=== PATIENT | male | born 1950 | race Caucasian/White ===

== ENCOUNTER 2025-02-26 12:52 | Outpatient (AMB) | payer MEDICARE, SELFPAY ==
--- NOTE | 2025-02-26 13:11 | A.SPINEOV_ITS ---
Vital Signs 02/26/25 13:12 Height 5 ft 9 in Weight 220 lb BMI 32.5 Intake Visit Reasons: Extruded L5 disc Intake Note: Mr. Hoover is here today c/o Low back pain. Access Service Representative Required: No Allergies Penicillins Allergy (Severe, Verified 02/26/25 13:13) Hives Physical Exam Vital Signs: BMI result Body Mass Index 32.5 Assessment & Plan Assessment & Plan (1) Lumbar radiculopathy: Code(s): M54.16 - Radiculopathy, lumbar region Category: Medical Plan: Dear colleague Thank you for referring Favian Sandoval to the office today with a chief complaint of intubated left leg numbness and tingling. HPI: This 74-year-old male developed tingling and complete loss of sensation of his left leg since 6 months. Specifically, the tingling and numbness goes from the front of his thigh to the medial side of his lower leg and medial side of ankle and foot. He denies weakness. The symptoms come on several times a week and last for approximately half an hour. PMH: Myasthenia gravis, hypertension, hypothyroidism, arthritis Medications: The Elavil, levothyroxine, enalapril, pantoprazole, Protonix, finasteride. . Those stick mine azelastine Allergies: Penicillin Social history: Lives in [place]. Nonsmoker Physical Exam: Height 5'9 weight 220 lb. Straight leg raise negative. Intact strength. Mild sensory deficits of his bilateral feet due to pre-existing neuropathy Radiological Studies: MRI done at [facility] in [place] on 01/05/2025 shows status post L2-3 fusion. There is a grade 1 spondylolisthesis L4-5 and severe spinal stenosis and bilateral foraminal stenosis. As possible disc herniation. There is lateral recess stenosis L5-S1 with compression of the L5 nerve root. Dynamic x-rays show no instability. No scoliosis under the previous surgical construct. Impression/Plan: This 74-year-old male is suffering from an intermittent L4 radiculopathy with the MRI showing severe for decompression of the L4 and L5 nerve roots. The treatment would be to decompress those nerve roots through a laminotomy. He denies pain and therefore I advised him to 1st observe where the symptoms are going. A progression of surgery would obviously lead to surgery. Surgery in a stable situation is dependent on the patient. Improvement of symptoms obviously the leads the need for surgery. Thank you for allowing me to participate in your patients care. total time spent was 50 minutes in counseling ,coordination of plan, personal review of imaging, surgical decision making and subsequent plan Lazaro Ku MD, PhD Spine Fellowship Trained Neurosurgeon Director, [facility] Orders: Orders XR lumbar spine 4V min Today M54.16 - Radiculopathy, lumbar region Coding Level of Care Code New Pt Level 4 (43156) Diagnoses Lumbar radiculopathy M54.16
[2025-02-26 13:12] VITALS: BMI 32.5
--- OUTSIDE RECORDS SUMMARY | 2025-02-26 13:26 | XMS_ITS | Clinical Summary ---
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 Refills: 0 Active Active latanoprost (XALATAN) 0.005% ophthalmic solution Xalatan 0.005 % Ophthalmic Solution INSTILL 1 DROP IN BOTH EYES AT BEDTIME. Refills: 0 Active Active fluticasone propionate (FLONASE) 50 mcg/actuation nasal spray Administer 1 spray into each nostril daily. 16 g 1 9 Active azelastine (ASTELIN) 137 mcg (0.1 %) nasal spray 0 Active fluorouraciL (EFUDEX) 5% creamIndications: Actinic keratosis Apply to the skin from the knuckles to the elbows twice a day for two weeks. 40 g 3 0 Active azaTHIOprine (IMURAN) 50 mg tabletIndications :Myasthenia gravis without (acute) exacerbation (HCC) Take 4 tablets by mouth daily. 360 tablet 3 1 Active pyridostigmine (MESTINON) 60 mg tablet Take 1 tab in the am and 1 tab at bedtime. 180 tablet 1 2 Active levothyroxine (SYNTHROID, LEVOTHROID) 88 mcg tabletIndications :Hypothyroidism, unspecified type Take 1 tablet (88 mcg total) by mouth daily. TAKE 1 TABLET DAILY IN THE MORNING 30 tablet 1 2 Active tamsulosin (FLOMAX) 0.4 mg capsuleIndication s:Benign prostatic hyperplasia with lower urinary tract symptoms, symptom details unspecified Take 2 capsules (0.8 mg total) by mouth once a day. 180 capsule [address] (PROTONIX) 40 mg tablet Take 1 tablet (40 mg total) by mouth 2 times a day. 180 tablet 3 2 Active enalapril (VASOTEC) 10 mg tabletIndications :Essential (primary) hypertension Take 1 tablet (10 mg total) by mouth once a day. 90 tablet 3 2 Active oxybutynin (DITROPAN) 5 mg tablet Take 1 tablet (5 mg total) by mouth once a day. 90 tablet 3 2 Active ALPRAZolam (Xanax) 0.5 mg tabletIndications :Panic disorder without agoraphobia Take 1 tablet (0.5 mg total) by mouth daily as needed for anxiety. 30 tablet 1 2 Active hyoscyamine (LEVSIN) 0.125 mg SL tablet TAKE 1 TABLET (0.125 MG TOTAL) BY MOUTH ONCE A DAY. 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 daily as needed, continue on admission Assessment & Plan (08/21/2018 7:49 AM EDT): 08/21/2018 -Hypertension-enalapril 10 mg daily, continue on admission -Hypothyroidism-Synthroid 88 MCG's daily, continue on admission -Episodic anxiety-0.5 mg p.o. daily as needed, continue on admission Assessment & Plan (08/20/2018 8:39 AM EDT): 08/20/2018 -Hypertension-enalapril 10 mg daily, continue on admission -Hypothyroidism-Synthroid 88 MCG's daily, continue on admission -Episodic anxiety-0.5 mg p.o. daily as needed, continue on admission Assessment & Plan (08/19/2018 10:58 PM EDT): 08/19/2018 -Hypertension-enalapril 10 mg daily, continue on admission -Hypothyroidism-Synthroid 88 MCG's daily, continue on admission -Episodic anxiety-0.5 mg p.o. daily as needed, continue on admission Assessment & Plan (08/14/2018 9:29 AM EDT): #Glaucoma-chronic, stable -Continue home latanoprost 0.005% BID qhs #Hypothyroidism- chronic, stable -Continue home levothyroxine 88 mcg daily #Anxiety-chronic, stable -Alprazolam 0.5 mg daily PRN anxiety Assessment & Plan (08/13/2018 9:52 AM EDT): #Glaucoma-chronic, stable -Continue home latanoprost 0.005% BID qhs #Hypothyroidism- chronic, stable -Continue home levothyroxine 88 mcg daily #Anxiety-chronic, stable -Alprazolam 0.5 mg daily PRN anxiety Melena 08/12/2018 Overview (08/13/2018): Added automatically from request for surgery [id number] Decreased hearing of both ears 07/03/2018 Assessment & Plan (07/31/2018 2:03 PM EDT): With decreased hearing in both ears, likely age-related hearing loss. Although previously patient stated that he did not want a formal audiology referral, he has reconsidered and would like to get this done to see if hearing aids are indicated. We will provide referral today. Assessment & Plan (07/14/2018 1:22 PM EDT): Patient with decreased hearing in both ears, likely age-related hearing loss. Currently not bothering patient very much, will continue to monitor and will refer to audiology for possible hearing aids in the future if symptoms become intrusive. 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 Patient returned for full-thickness excision, but lesion covered large area of forehead and patient had several other small scattered lesions on forehead that were also concerning for actinic keratoses vs. Squamous cell carcinomas. Given this, discussed with patient and we will defer further biopsy/treatment to Dermatology, whom I will place a referral to today. Patient may be a good candidiate for 5-fluorouracil, or may require excision of lesions. Appreciate Dermatology's input in this matter. Assessment & Plan (01/25/2018 4:30 PM EDT): Patient with rough, scaly, slightly hyperpigmented patch over left sabianism. Appears to be most consistent with actinic keratosis. Given location patient's age, will opt for a shave biopsy to rule out squamous cell carcinoma. Could also consider cryotherapy. 5-fluorouracil not indicated at this time as patient has only scattered lesions. Benign prostatic hyperplasia with urinary freque ncy 06/19/2017 Assessment & Plan (04/16/2019 10:09 PM EDT): Patient with BPH as well as with overactive bladder. Tamsulosin has helped with use of urination but he continues to have sudden urgency. Hyoscyamine has been adequate in treating his symptoms. He had previously been on oxybutynin without any ill effects. He is aware of the risks of taking this medication given that it is an anticholinergic in the context of his myasthenia gravis. However, he would like to give this another try. Given the patient's previous lack of side effects on his medication, we will trial him on oxybutynin 5 mg daily. If he experiences any symptoms of myasthenia whatsoever, he states that he will stop the medication immediately and call me and Dr. Salazar, his neurologist, to let us know. I do wonder whether or not it would be worth exploring trying to get Myrbetriq approved for him. He states in the past it was too expensive for him to be able to afford. However, given his myasthenia, I believe that Myrbetriq will be the best option as it is the only non-anticholinergic treatment for his overactive bladder but I am aware of at this time. We may consider urology consultation as well. Assessment & Plan (08/22/2018 9:26 AM EDT): 08/22/2018 Long-standing BPH on Flomax 0.8 mg daily. Continue home meds -Continue Flomax 0.8 mg daily -Patient also reports using hyoscyamine daily to help with bladder spasms reordered today Assessment & Plan (08/21/2018 7:49 AM EDT): 08/21/2018 Long-standing BPH on Flomax 0.8 mg daily. Continue home meds -Continue Flomax 0.8 mg daily Assessment & Plan (08/20/2018 8:39 AM EDT): 08/20/2018 Long-standing BPH on Flomax 0.8 mg daily. Continue home meds -Continue Flomax 0.8 mg daily Assessment & Plan (08/19/2018 10:48 PM EDT): 08/19/2018 Long-standing BPH on Flomax 0.8 mg daily. Continue home meds -Continue Flomax 0.8 mg daily Assessment & Plan (07/31/2018 2:02 PM EDT): Patient with BPH resulting in difficulty urinating, also with bladder spasms that cause increased urgency. Taking both hyoscyamine 0.125 mg 3-4 times daily as needed for bladder spasm and is using tamsulosin 0.8 mg daily for difficulty urinating. Has an appointment scheduled with urology for next week. Appreciate their recommendations. Assessment & Plan (07/14/2018 1:21 PM EDT): Patient with BPH resulting in difficulty urinating. Also with bladder spasms. Currently taking both tamsulosin 0.8 mg daily as well as hyoscyamine as needed. Symptoms have been progressing. As result, will refer to urology for further assessment. Iron deficiency anemia due to chronic blood loss 05/30/2017 Assessment & Plan (08/16/2017 6:59 PM EDT): Patient with history of iron deficiency anemia due to chronic blood loss from gastric ulcer. Has needed treatment with pantoprazole and is now on ranitidine. Has been taking iron supplementation to replenish stores. Will check CBC after visit today. If patient's CBC is returning to normal, he may stop taking his iron supplementation. Multiple gastric erosions 05/28/2017 Myasthenia gravis 03/07/2016 Assessment & Plan (08/22/2018 9:25 AM EDT): 08/22/2018 Favian has long-standing myasthenia gravis, currently managed on Imuran 200 mg daily and pyridostigmine 60 mg daily. He does state that some amount of lower extremity weakness is normal for him at baseline due to the EMG, but he feels as though his weakness is worse recently on account of the blood loss. Continue home meds. -Azathioprine 200 mg daily -Pyridostigmine 60 mg daily Assessment & Plan (08/21/2018 7:49 AM EDT): 08/21/2018 Favina has long-standing myasthenia gravis, currently managed on Imuran 200 mg daily and pyridostigmine 60 mg daily. He does state that some amount of lower extremity weakness is normal for him at baseline due to the EMG, but he feels as though his weakness is worse recently on account of the blood loss. Continue home meds. -Azathioprine 200 mg daily -Pyridostigmine 60 mg daily Assessment & Plan (08/20/2018 8:39 AM EDT): 08/20/2018 Favian has long-standing myasthenia gravis, currently managed on Imuran 200 mg daily and pyridostigmine 60 mg daily. He does state that some amount of lower extremity weakness is normal for him at baseline due to the EMG, but he feels as though his weakness is worse recently on account of the blood loss. Continue home meds. -Azathioprine 200 mg daily -Pyridostigmine 60 mg daily Assessment & Plan (08/19/2018 10:57 PM EDT): 08/19/2018 Favian has long-standing myasthenia gravis, currently managed on Imuran 200 mg daily and pyridostigmine 60 mg daily. He does state that some amount of lower extremity weakness is normal for him at baseline due to the EMG, but he feels as though his weakness is worse recently on account of the blood loss. Continue home meds. -Azathioprine 200 mg daily -Pyridostigmine 60 mg daily Assessment & Plan (08/14/2018 9:08 AM EDT): Chronic, stable on home meds. -Continue home azathioprine 200 mg daily -Continue home hyoscyamine 0.125 mg daily -Continue home pyridostigmine 60 mg BID Assessment & Plan (08/13/2018 9:52 AM EDT): Chronic, stable on home meds. 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 TSH normal. We will continue to monitor. Assessment & Plan (08/16/2017 6:59 PM EDT): Patient with hypothyroidism being treated with levothyroxine. At last visit in June, patient's TSH was noted to be very low at 0.4, representing iatrogenic hyperthyroidism. We decreased his levothyroxine dose to 88 mcg daily. We are rechecking his TSH today to determine how he has responded to this dose change. We will adjust the dose as needed. Osteoarthritis 05/21/2009 Hypertension 05/21/2009 Assessment & Plan (08/14/2018 9:08 AM EDT): Chronic, stabilizing. Baseline BPs 130s/80s outpatient. Temporarily hemodynamically unstable in ED followed by persistent hypotension which resolved status post fluid resuscitation and 2 PRBCs. Blood pressures have been low normal while continuing home BP meds with holding parameters. -Continue home enalapril 10 mg daily -Continue home tamsulosin 0.8 mg daily Assessment & Plan (08/13/2018 9:52 AM EDT): Chronic, stabilizing. Baseline BPs 130s/80s outpatient. Temporarily hemodynamically unstable in ED followed by persistent hypotension which resolved status post fluid resuscitation and 2 PRBCs. Blood pressures have been low normal while continuing home BP meds with holding parameters. -Continue home enalapril 10 mg daily -Continue home tamsulosin 0.8 mg daily Dysmetabolic syndrome X 05/21/2009 Hypercholesterolemia 05/21/2009 Ulnar neuropathy at wrist, right Carpal tunnel syndrome on both sides Resolved Problems Problem Noted Date Diagnosed Date Resolved Date Acute upper gastrointestinal hemorrhage 08/12/2018 08/23/2018 Assessment & Plan (08/22/2018 9:25 AM EDT): 08/22/2018 Favian has a history of gastric bypass surgery and was admitted to [facility] 08/12-08/15 in the setting of melena and rectal bleeding as well as anemia with a hemoglobin ~10, but he was experiencing significant symptoms of dizziness, lightheadedness, as well as tachycardia. He was discharged on 08/15 and as outpatient he completed a video capsule endoscopy. The video capsule did show clotting and evidence of bleeding in the distal jejunum. Patient presented Saturday to clinic for continued weakness, shortness of breath, dizziness and lightheadedness, as well as continued tarry stools multiple times per day. At the [facility], he was hypotensive in the 90s-100s over 60s-70s. Capsule endoscopy result finalized today by Dr. Sharma, recommending a double balloon enteroscopy for detailed evaluation. Favian received 1 unit PRBCs in the ER on admission and was hemodynamically stable otherwise. GI took him for a double balloon enteroscope yesterday that did show clot in the jejunum and bowel wall edema but no active source of bleeding or ulceration was noted. They made recommendations for him to have 2 more days of IV Protonix then to be discharged on high-dose oral Protonix. Patient agreed to stay for 1 more day GI is agreeable to this as well. He was also only agreeable to stay for advance his diet so that he may eat. GI also mention that if he should rebleed he should present himself to [facility] instead of [facility] in order to have his scopes done more expeditiously. Furthermore, his hemoglobin has stabilized around 8.5. PLAN: - Gastroenterology consult, appreciate recommendations. - Regular diet - Discontinue IV fluids - A.m. CBC -IV Protonix 40 mg twice daily Assessment & Plan (08/21/2018 7:48 AM EDT): 08/21/2018 Favian has a history of gastric bypass surgery and was admitted to [facility] 08/12-08/15 in the setting of melena and rectal bleeding as well as anemia with a hemoglobin which was only around 10, but he was experiencing significant symptoms of dizziness, lightheadedness, as well as tachycardia. He was discharged on 08/15 and as outpatient he completed a video capsule endoscopy. The video capsule did show clotting and evidence of bleeding in the distal jejunum. Patient presented Saturday to clinic for continued weakness, shortness of breath, dizziness and lightheadedness, as well as continued tarry colored stools multiple times per day. At the [facility] he was hypotensive in the 90s-100s over 60s-70s. Capsule endoscopy result finalized today by Dr. Sharma, recommending a double balloon enteroscopy for detailed evaluation. Favian received 1 unit PRBCs in the ER on admission and was hemodynamically stable otherwise. GI was able to get him on the schedule today for 2:30 PM for double balloon enteroscopy. Patient has remained n.p.o. since midnight. Hemodynamically stable with no new episodes of dark loose stools since last night. CBC still pending at time of notation. PLAN: -Gastroenterology consult, appreciate recommendations. - N.p.o. except sips with meds and ice chips - IVF at 125/h (d/c normal saline with 20 mEq potassium) - now D5NS - A.m. CBC Assessment & Plan (08/20/2018 8:39 AM EDT): 08/20/2018 Favian has a history of gastric bypass surgery and was admitted to [facility] in the setting of melena and rectal bleeding as well as anemia with a hemoglobin which was only around 10, but he was experiencing significant symptoms of dizziness, lightheadedness, as well as tachycardia. He was discharged on 08/15 and as outpatient he completed a video capsule endoscopy, the results of which were finalized today. The video capsule did show clotting and evidence of bleeding in the distal jejunum. Patient presented Saturday to clinic for continued weakness, shortness of breath, dizziness and lightheadedness, as well as continued tarry colored stools multiple times per day. At the [facility] he was hypotensive in the 90s-100s over 60s- 70s. He denies milton blood in his stool. Capsule endoscopy result finalized today by Dr. Sharma, recommending a double balloon enteroscopy for detailed evaluation. Favian received 1 unit PRBCs in the ER on admission and was hemodynamically stable otherwise. Awaiting to hear if able to get him on schedule today for this double balloon capsule enteroscopy. However, at this time unlikely that he will have it today will await to hear from GI before changing n.p.o. Status. Since hemoglobin/hematocrit responded appropriately and is stable. Patient continues to have dark tarry stool but denies any milton bleeding. PLAN: -Gastroenterology consul, appreciate recommendations. - N.p.o. except sips with meds and ice chips - IVF at 125/h (normal saline with 20 mEq potassium) -A.m. CBC Assessment & Plan (08/19/2018 10:48 PM EDT): 08/19/2018 Favian has a history of gastric bypass surgery and was admitted to [facility] in the setting of melena and rectal bleeding as well as anemia with a hemoglobin which was only around 10, but he was experiencing significant symptoms of dizziness, lightheadedness, as well as tachycardia. He was discharged on the and as outpatient he completed a video capsule endoscopy, the results of which were finalized today. The video capsule did show clotting and evidence of bleeding in the distal jejunum. Favian presented to clinic Saturday for continued weakness, shortness of breath, dizziness and lightheadedness, as well as continued tarry colored stools multiple times per day. At the [facility] he was hypotensive in the 90s-100s over 60s-70s. He denies milton blood in his stool. Capsule endoscopy result finalized today by Dr. Sharma, recommending a double balloon enteroscopy for detailed evaluation. Favian received 1 unit PRBCs in the ER today, hemodynamically stable otherwise. -Gastroenterology consult for double balloon enteroscopy evaluation -N.p.o. except sips with meds and ice chips -1 unit PRBC as above, follow-up posttransfusion H&H - CBC and BMP in the morning -IVF at 125/h (normal saline with 20 mEq potassium) Assessment & Plan (08/14/2018 9:30 AM EDT): Patient with history, physical exam, and laboratory evidence suggestive of upper GI bleed. Past medical history of gastric bypass and nonbleeding erosive gastritis on EGD in 2017 treated and improved with Protonix. Admitted with a significant decreased hemoglobin of 10.2 from 13.4 on 07/01. Initially presented with mild hemodynamic instability including hypotension and tachycardia but somewhat resolved after initial fluid bolus, fully resolved after transfusion of 2 PRBCs in the ED. Of note, documentation of administration difficult to find although mentioned in notes and patient also states he has received transfusion. Patient has remained hemodynamically stable and H/H has remained stable as well. EGD done 08/13 did not find any sources of bleeding, so patient will go for colonoscopy today. Patency capsule administered 08/13/18, preparing for video capsule endoscopy if colonoscopy negative -s/P 2 PRBC 08/12 -IV pantoprazole 40 mg twice daily -Currently N.p.o. except for meds until colonoscopy -GI consulted, plans for colonoscopy this morning and possible VCE this afternoon -KUB at 12:00 to confirm positioning of patency capsule -Follow CBC daily Assessment & Plan (08/13/2018 9:51 AM EDT): Patient with history, physical exam, and laboratory evidence suggestive of upper GI bleed. Past medical history of gastric bypass and nonbleeding erosive gastritis on EGD in 2017 treated and improved with Protonix. Currently with a significant decreased hemoglobin of 10.2 from 13.4 on 07/01. Initially presented with mild hemodynamic instability including hypotension and tachycardia but somewhat resolved after initial fluid bolus, fully resolved after transfusion of 2 PRBCs in the ED. Of note, documentation of administration difficult to find although mentioned in notes and patient also states he has received transfusion. GI has been consulted and plans on EGD today; if EGD unrevealing, patient will likely need capsule study. -s/P 2 PRBC -Normal saline 125 mL/h continuous while NPO, d/c after endoscopy -IV pantoprazole 40 mg twice daily -Currently N.p.o. except for meds until endoscopy -GI consulted, plans for EGD this afternoon -F/U 4pm H&H Strain of right trapezius muscle 07/09/2018 08/12/2018 Assessment & Plan (07/09/2018 11:41 AM EDT): Patient with right trapezius muscle strain, will treat with formal physical therapy which patient was provided a referral for today. Patient will also continue using topical therapies as well as heat to help manage symptoms. He will also continue use Tylenol. Discussed muscle relaxer but concerned this may interfere with his myasthenia and so will defer using this. We will follow-up at next scheduled appointment in about 3-4 weeks and determine how things are going at that time. He expressed understanding and agreement with this plan. Trochanteric bursitis of right hip 11/20/2017 08/12/2018 Assessment & Plan (01/25/2018 4:28 PM EDT): Resolved with physical therapy and with corticosteroid injection as well as regular icing. We will continue to follow in case this issue reoccurs. Assessment & Plan (12/23/2017 7:49 PM EST): Patient with tenderness over the right greater tochanter, experienced some mild relief with physical therapy, ice, and acetaminophen but still experiencing pain and unable to sleep on that side. Trochanteric bursa injection performed today; please see procedure note above for full details. Patient tolerated procedure well. Will follow-up in 1 month to assess how things are going with continued physical therapy, ice, and with the injection that was performed today. Assessment & Plan (11/23/2017 1:09 PM EST): Patient with tenderness over greater trochanter of right femur, suggestive of trochanteric bursitis. Will treat with physical therapy as described above; if pain persists, can schedule a corticosteroid of the trochanteric bursa. Patient expressed understanding and agreement with this plan. Pain of right sacroiliac joint 11/20/2017 08/12/2018 Assessment & Plan (11/23/2017 1:07 PM EST): Patient with pain in right sacroilliac joint. Unable to take NSAIDs due to history of gastric ulcer and upper GI bleed. Will refer to physical therapy for strengthening and range of motion exercises. Hand injury, right, initial encounter 10/21/2017 08/12/2018 Overview (10/22/2017): Occurred 10/02/17 following a mechanical fall Assessment & Plan (10/22/2017 12:10 AM EST): Patient with right hand pain over fifth metacarpal following a fall which he broke using his right hand. Full range of motion and no more bruising with only minimal soft tissue swelling, although significant swelling and ecchymosis present at time of injury per patient. X-ray of right hand done in clinic today and did not reveal any gross abnormalities or evidence of fracture, official radiology read pending. No further intervention necessary, patient has been managing pain with ice and acetaminophen. However, patient has had weakness with flexion of the right first through third digits in his right hand for the past 3-4 days. Given the lack of findings on imaging and exam, this is unlikely due to his right hand injury. Patient with complex neuromuscular history including myasthenia gravis and Guillain syndrome; symptoms may represent flare of one of these conditions. He has a follow-up with his neurologist, Dr. Salazar, tomorrow morning. I have emailed her about this issue and he will address it with her tomorrow. I appreciate her input and help in the care of this patient. Shortness of breath 05/27/2017 08/12/20 18 Cramps of lower extremity 03/07/2016 Leg cramps, sleep related 07/12/2015 Joint pain, knee 05/21/2009 08/12/2018 Diabetes mellitus 05/21/2009 08/12/2018 Allergic rhinitis 05/21/2009 08/12/2018 Assessment & Plan (08/16/2017 6:57 PM EDT): Patient getting over viral URI and still experiencing postnasal drip and rhinitis. Although symptoms are much improved, his postnasal drip is causing discomfort causing him to cough and choke. We will treat this with Flonase 50 mcg 1 spray each nostril every night. If his symptoms worsen or fail to improve, he will follow-up as needed. 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 Has recently gained weight and would like more help on how to change his diet. Will refer to nutrition for dietary counseling. Lumbago 05/21/2009 08/12/2018 Immunizations Immunization Administration Dates Next Due Diphtheria and Tetanus Toxoi ds, Adsorbed for Pediatric Use 06/17/1996,12/26/1995 INFLUENZA, SPLIT VIRUS, TRIVALENT, PF 08/26/2003 ,02/10/1993,09/05/1992 Influenza, High Dose Seasona l, Preservative Free 08/16/2017 Influenza, Injectable, Quadr ivalent, Preservative Free 08/15/2020,08/19/2019,08/28/2018 Pneumococcal Polysaccharide Vaccine, 23 Valent 10/05/1997 Family History Medical History Relation Name Comments Other Father Family history of Heart fibrillation Other Mother Family History of glaucoma Relation Name Status Comments Father Mother Social History Tobacco Use Types Packs/Day Years Used Date Smoking Tobacco: Former Cigarettes 0 07/14/1966 - 08/13/1968 Pipe Smokeless Tobacco: Never Tobacco Cessation:Counseling Given: No Comments:: Alcohol Use Standard Drinks/Week Comments Yes 0 (1 standard drink = 0.6 oz pur e alcohol) 1 beer week Sex and Gender Information Value Date Recorded Sex Assigned at Male 05/15/2021 8:50 AM EDT Legal Sex Male 2:23 AM EDT Gender Identity Male 02/18/2019 3:39 PM EDT Sexual Orientation Straight 02/18/2019 3: 39 PM EDT Last Filed Vital Signs Vital Sign Reading Time Taken Comments Blood Pressure 110/70 05/18/2021 9:53 AM EDT Pulse 78 05/18/2021 9:53 AM EDT Temperature 35.3 ??C (95.6 ??F) 03/07/2021 9:41 AM ED T Respiratory Rate 18 05/18/2021 9:53 AM EDT Oxygen Saturation 95% 11/27/2018 4:30 PM EST Inhaled Oxygen Concentration - - Weight 106.6 kg (235 lb) 03/07/2021 9:41 AM EDT Height 177.8 cm (5' 10 ) 03/07/2021 9:41 AM EDT Body Mass Index 33.72 03/07/2021 9:41 AM EDT Plan of Treatment Health Maintenance Due Date Last Done Comments Hepatitis C Screening 1950 Medicare AWV 1951 Zoster Vaccines (1 of 2) 1967 Pneumococcal Vaccine: 50+ Years (2 of 2 - PCV) 10/05/1998 10/05/1997 DTaP,Tdap,and Td Vaccines (3 - Tdap) 06/17/2006 06/17/1996, 12/26/1995 COVID-19 Vaccine (2 - Pfizer risk series) 07/17/2021 06/26/2021 Basic Metabolic Panel 03/07/2022 03/07/2021 , 08/02/2020, 07/22/2019, Additional history exists RSV Vaccine (60+ years old and patients) (1 - 1-dose 75+ series) 2023 Colonoscopy 11/20/2023 11/20/2018, 11/11, 11/20/2018, Additional history exists Alcohol/Substance Use Screening 11/11/2024 Depression Screening and Follow-Up 11/11/2024 Health Care Proxy Review 11/11/2024 Social Drivers of Health Annual Screening 11/11/2024 Influenza Vaccine (Season Ended) 2025 08/15/2020, 08/19/2019, 08/28/2018, Additional history exists Hepatitis B Vaccines Aged Out No long er eligible based on patient's age to complete this topic Procedures * Due to [place] law, this organization might not be sharing negative HIV tests. Procedure Name Priority Date/Time Associated Diagnosis Comments COMPREHENSIVE METABOLIC PANEL Routine 03/07/2021 12:28 PM EDT Myasthenia gravis COLONOSCOPY 11/20/2018 from Last 3 Months or Most Recently Relevant to Health Maintenance Results * Due to [place] law, this organization might not be sharing negative HIV tests. * (ABNORMAL) Comprehensive Metabolic Panel (03/07/2021 12:28 PM EDT) NA 141 135 - 145 mmol/L 03/07/2021 8:28 PM EDT [email or web address] K 4.1 3.5 - 5.3 mmol/L 03/07/2021 8:28 PM EDT [facility] Cl 109 97 - 110 mmol/L 03/07/2021 8:28 PM EDT [facility] CO2 24 24 - 32 mmol/L 03/07/2021 8:28 PM EDT [facility] Anion Gap 8 5 - 15 03/07/2021 8:28 PM EDT [facility] Glucose 97 70 - 99 mg/dL 03/07/2021 8:28 PM EDT [email or web address] Creatinine 1.01 0.60 - 1.30 mg/dL 03/07/2021 8:28 PM EDT [email or web address] eGFR Non- 74(L) >=90 mL/min/BS A 03/07/2021 8:28 PM EDT [email or web address] eGFR 86(L) >=90 mL/min/BS A 03/07/2021 8:28 PM EDT [email or web address] Comment: Units = mL/min/1.73 m2 Glomerular Filtration Rate (GFR) is estimated based on the CKD-EPI Creatinine Equation (2009). Stage ?Description ? GFR 1 ? Normal ? >=90 mL/min/BSA 2 ? Mildly decreased GFR ? 60-89 mL/min/BSA 3 ? Moderately decreased GFR ? 30-59 mL/min/BSA 4 ? Severely decreased GFR ? 15-29 mL/min/BSA 5 ? Kidney Failure ? <15 mL/min/BSA Calcium 9.3 8.7 - 10.7 mg/dL 03/07/2021 8:28 PM EDT [email or web address] Total Protein 6.6 6.0 - 8.0 g/dL 03/07/2021 8:28 PM EDT [facility] Albumin 4.3 3.5 - 4.8 g/dL 03/07/2021 8:28 PM EDT [facility] Bilirubin, Total 1.1 0.3 - 1.2 mg/dL 03/07/2021 8:28 PM EDT [facility] Alkaline Phosphatase 56 30 - 115 U/L 03/07/2021 8:28 PM EDT [facility] AST 27 10 - 40 U/L 03/07/2021 8:28 PM EDT [facility] ALT 13 10 - 40 U/L 03/07/2021 8:28 PM EDT [email or web address] BUN 18 7 - 23 mg/dL 03/07/2021 8:28 PM EDT [email or web address] Blood Structure of peripheral vein / Unknown Venipuncture / Unknown 03/07/2021 12:28 PM EDT 03/07/2021 12:28 PM EDT Mary Salazar DO LAB BLOOD ORDERABLES Final Result [email or web address] [address] [place] [address], [place] * COLONOSCOPY (11/20/2018) Narrative Procedure Note Jacob Khan MD PhD - 11/20/2018 8:01 AM EST Gastroenterology Patient Name: Ballesteros 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 Procedure: Pre-Anesthesia Assessment: - Prior to the procedure, a History and Physical was performed, and patient medications and allergies were reviewed. The patient is competent. The risks andbenefits of the procedure and the sedation options and riskswere discussed with the patient. All questions were answered and informed consent was obtained. Patientidentification and proposed procedure were verified by the physician,the nurse, the anesthesiologist, the field service technician poultry and the septic tank service technician in the pre-procedure area in the procedureroom in the endoscopy suite. Mental Status Examination:alert and oriented. Airway Examination: normal oropharyngeal airway and neck mobility. Respiratory Examination:clear to auscultation. CV Examination: normal. Prophylactic Antibiotics: The patient does not require prophylactic antibiotics. Prior Anticoagulants: The patient hastaken no previous anticoagulant or antiplatelet agents. ASA Grade Assessment: II - A patient with mild systemic disease. After reviewing the risks and benefits, the patient was deemed in satisfactory condition to undergo the procedure. The anesthesia plan was to use monitored anesthesia care (MAC). Immediately prior toadministration of medications, the patient was re-assessed foradequacy to receive sedatives. The heart rate, respiratory rate, oxygen saturations, blood pressure, adequacy ofpulmonary ventilation, and response to care were monitored throughout the procedure. The physical status of the patient was re-assessed after the procedure. After I obtained informed consent, the scope was passed under direct vision. Throughout the procedure, the patient's blood pressure, pulse, and oxygen saturations were monitored continuously. The [id number] was introduced through the anus and advanced to thececum, identified by appendiceal orifice and ileocecal valve.The colonoscopy was performed without difficulty. Thepatient tolerated the procedure well. The quality of the bowel preparation was good. The bowel preparation used was CoLyte. Findings: The perianal and digital rectal examinations were normal. Multiple diverticula were found in the sigmoid colon. Two sessile polyps were found in the descending colon. The polypswere 2 to 6 mm in size. These polyps were removed with a hot snare and cold forceps. Resection and retrieval were complete. Verification ofpatient identification for the specimen was done by the physician, nurse and septic tank service technician using the patient's name and date. Estimated bloodloss was minimal. Impression: - Diverticulosis in the sigmoid colon. - Two 2 to 6 mm polyps in the descending colon, removed with a hot snare. Resected and retrieved. Recommendation: - Discharge patient to home. - No aspirin, ibuprofen, naproxen, or othernon-steroidal anti-inflammatory drugs for 6 days after polypremoval. - Await pathology results. - Repeat colonoscopy in 5 years for surveillance. Jacob Khan MD 11/20/2018 8:35:44 AM This report has been signed electronically. Number of Addenda: 0 Note Initiated On: 11/20/2018 8:01 AM Jacob Khan MD PROVATION PROCEDURES Final R esult from Last 3 Months or Most Recently Relevant to Health Maintenance Insurance MEDICARE Advance Directives Documents on File Type Date Recorded Patient Clinic Coordinator Expl anation Health Care Proxy 03/03/2011 12:00 AM 10/12 Health Care Proxy 06/08/2009 12:00 AM 05/12 * Full Code (Latest Code Status on File) Date Activated Date Inactivated Comments 08/19/2018 9:16 PM 08/23/2018 12:24 PM * Full Code Date Activated Date Inactivated Comments 08/12/2018 10:16 PM 08/15/2018 1:11 PM Care Teams Canal Equipment Maintenance Supervisor Relationship Specialty Start Date End Date Hugh Beltrán MD PCP - General 08/09/17
--- OUTSIDE RECORDS SUMMARY | 2025-02-26 13:26 | XMS_ITS | Encounter Summary ---
Author Organization [facility] Address [address] [place] [address] Care Team Providers Care Test Deskman Name Role Phone Hugh Beltrán MD Primary Care Provider [phone] Encounter Details Date Type Department Care Team (Late st Contact Info) Description 08/16/2017 myChart Message [facility] Primary Care [address] [place] [address] Hugh Beltrán MD [address] [place] [address] Test Results Question Social History Tobacco Use Types Packs/Day Years Used Date Smoking Tobacco: Former Comments:: Sex and Gender Information Value Date Recorded Sex Assigned at Male 05/15/2021 8:50 AM EDT Legal Sex Male 2:23 AM EDT Gender Identity Male 02/18/2019 3:39 PM EDT Sexual Orientation Straight 02/18/2019 3: 39 PM EDT documented as of this encounter Plan of Treatment Not on file documented as of this encounter Visit Diagnoses Not on filedocumented in this encounter Care Teams Test Deskman Relationship Specialty Start Date End Date Hugh Beltrán MD PCP - General 08/09/17 documented as of this encounter
--- OUTSIDE RECORDS SUMMARY | 2025-02-26 13:26 | XMS_ITS | Clinical Summary ---
Author Organization [facility] Address [address] [place] [address] Care Team Providers Care Automatic Thread Winder Name Role Phone Aamir Mauricio Primary Care Provider [phone] Allergies Active Allergy Reactions Criticality Noted Date Comments Penicillins Hives 03/07/1960 Medications diazePAM (Valium) 2 mg tabletIndicati ons:Weakness Take 1 tablet (2 mg) by mouth 1 (one) time if needed (claustroph obia prior to MRI; please take 30 minutes prior to imaging study) for up to 1 dose. 1 tablet 4 Active amitriptyline (Elavil) 10 mg tabletIndicati ons:Sialorrhea Take 1 tablet (10 mg) by mouth at bedtime. 30 tablet 3 5 Active gabapentin (Neurontin) 300 mg capsuleIndicat ions:Myastheni a gravis (CMS/HCC) TAKE 1 CAPSULE AT BEDTIME FOR 30 DAYS, THEN 1 CAPSULE (300 MG) IN THE MORNING AND AT BEDTIME. 180 capsule 1 5 Active gabapentin (Neurontin) 300 mg capsuleIndicat ions:Myastheni a gravis (CMS/HCC) Take 1 capsule (300 mg) by mouth at bedtime for 30 days, THEN 1 capsule (300 mg) in the morning and at bedtime. 210 capsule 4 02/20/20 25 Discontinued Encounters Date Type Department Care Team Description 02/19/2025 Orders Only [facility] [address] [place] [address] Rebecca Grover MD 02/16/2025 Refill [facility] [address] [place] [address] Rebecca Grover MD Myasthenia gravis ([facility]) 02/15/2025 Refill [facility] Neu[facility] [address] [place] [address] Rebecca Grover MD Myasthenia gravis ([facility]) 02/08/2025 Orders Only [facility] Neurology [address] [place] [address] Rebecca Grover MD Sialorrhea (Primary Dx) 12/24/2024 Orders Only [facility] Neurology [address] [place] [address] Rebecca Grover MD Lumbosacral 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 (Primary Dx) from Last 3 Months Social History Tobacco Use Types Packs/Day Years Used Date Smoking Tobacco: Former Cigarettes Smokeless Tobacco: Never Tobacco Cessation:Counseling Given: Not Answered Sex and Gender Information Value Date Recorded Sex Assigned at Male 01/01/2024 1:54 PM EST Legal Sex Male 1:52 PM EST Gender Identity Male 01/01/2024 5:29 PM EST Sexual Orientation Not on file Last Filed Vital Signs Vital Sign Reading Time Taken Comments Blood Pressure 132/80 09/25/2024 2:33 PM EST Pulse 84 09/25/2024 2:33 PM EST Temperature 36.3 ??C (97.3 ??F) 04/13/2024 2:54 PM ED T Respiratory Rate - - Oxygen Saturation 98% 09/25/2024 2:33 PM EST Inhaled Oxygen Concentration - - Weight 95.7 kg (211 lb) 09/25/2024 2:33 PM EST Height 175.3 cm (5' 9 ) 09/25/2024 2:33 PM EST Body Mass Index 31.16 09/25/2024 2:33 PM EST Plan of Treatment Upcoming Encounters Date Type Department Care Team (Late st Contact Info) Description 03/29/2025 9:00 AM EDT Office Visit [facility] [address] [place] [address] Rebecca Grover MD [address] [place] [address] Health Maintenance Due Date Last Done Comments Lipid Panel 1950 Medicare Annual Wellness (AWV) 1950 Hepatitis C Screening 1968 Zoster Vaccines (1 of 2) 1998 Pneumococcal Vaccine: 50+ Years (2 of 2 - PCV) 09/02/2024 09/02/2023 COVID-19 Vaccine ( season) 2024 09/29/2024, 08/05/2023, 08/13/2022, Additional history exists DTaP/Tdap/Td Vaccines (2 - Td or Tdap) 10/31/2034 10/31/2024, 08/21/2021 Influenza Vaccine Completed 09/29/2024, , 08/13/2022, Additional history exists RSV Vaccine > 60 years Completed 09/29/2024 HIB Vaccines Aged Out No longer eligi ble based on patient's age to complete this topic HPV Vaccines Aged Out No longer eligi ble based on patient's age to complete this topic Hepatitis A Vaccines Aged Out No long er eligible based on patient's age to complete this topic Hepatitis B Vaccines Aged Out No long er eligible based on patient's age to complete this topic IPV Vaccines Aged Out No longer eligi ble based on patient's age to complete this topic Meningococcal B Vaccine Aged Out No l onger eligible based on patient's age to complete this topic Meningococcal Vaccine Aged Out No aman nereida eligible based on patient's age to complete this topic Potassium Level Discontinued Rotavirus Vaccines Aged Out No longer eligible based on patient's age to complete this topic Procedures Procedure Name Priority Date/Time Associated Diagnosis Comments SCANNED MRI 01/05/2025 from Last 3 Months Results * MRI (01/05/2025) Anatomical Region Laterality Modality Other 01/05/2025 Narrative 01/05/2025 Ordered by an unspecified provider. Physician Family Medicine MD ROMAN SCANNED DOCUMEN TS Final Result from Last 3 Months Insurance MEDICARE [facility]/TRADITIONAL Care Teams Automatic Thread Winder Relationship Specialty Start Date End Date Aamir Mauricio [address] [place] [address] PCP - General 01/01/24
--- OUTSIDE RECORDS SUMMARY | 2025-02-26 13:26 | XMS_ITS | Encounter Summary ---
Author Organization [facility] Address [address] [place] [address] Care Team Providers Care Set Key Driver Name Role Phone Hugh Beltrán MD Primary Care Provider Encounter Details Date Type Department Care Team (Late st Contact Info) Description 10/18/2017 myChart Message [facility] Primary Care [address] [place] [address] Hugh Beltrán MD [address] [place] [address] Referral Request Social History Tobacco Use Types Packs/Day Years [...] on filedocumented in this encounter Care Teams Set Key Driver Relationship Specialty Start Date End Date Hguh Beltrán MD PCP - General 08/09/17 documented as of this encounter
--- OUTSIDE RECORDS SUMMARY | 2025-02-26 13:26 | XMS_ITS | Encounter Summary ---
Author Organization [facility] Address [address] [place] [address] Care Team Providers Care Manufacturing Recruiter Name Role Phone Aamir Mauricio Primary Care Provider [phone] Reason for Visit * Reason Onset Date Comments Med Refill 02/15/2025 Encounter Details Date Type Department Care Team (Late Contact Info) Description 02/15/2025 Refill [facility] [address] [place] [address] Rebecca Grover MD [address] [place] [address] Myasthenia gravis ([facility]) Social History Tobacco Use Types Packs/Day Years Used Date Smoking Tobacco: Former Cigarettes Smokeless Tobacco: Never Sex and Gender Information Value Date Recorded Sex Assigned at Male 01/01/2024 1:54 PM EST Legal Sex Male 1:52 PM EST Gender Identity Male 01/01/2024 5:29 PM EST Sexual Orientation Not on file documented as of this encounter Plan of Treatment Upcoming Encounters Date Type Department Care Team (Late Contact Info) Description 03/29/2025 9:00 AM EDT Office Visit [facility] [address] [place] [address] Rebecca Grover MD [address] [place] [address] documented as of this encounter Visit Diagnoses Diagnosis Myasthenia gravis (CMS/HCC) Myasthenia gravis without exacerbation documented in this encounter Care Teams Manufacturing Recruiter Relationship Specialty Start Date End Date JadcmJessica knoxkarol [address] [place] [address] PCP - General 01/01/24 documented as of this encounter
--- OUTSIDE RECORDS SUMMARY | 2025-02-26 13:26 | XMS_ITS | Encounter Summary ---
Author Organization [facility] Address [address] [place] [address] Care Team Providers Care Toll Settlement Clerk Name Role Phone Hugh Beltrán MD Primary Care Provider [phone] Encounter Details Date Type Department Care Team (Late st Contact Info) Description 03/03/2018 myChart Message [facility] Primary Care [address] [place] [address] Hugh Beltrán MD [address] [place] [address] RE: Visit Follow-Up Question Social History Tobacco Use Types Packs/Day Years Used Date Smoking Tobacco: Former Smokeless Tobacco: Never Comments:: Alcohol Use Standard Drinks/Week Comments No 0 (1 standard drink = 0.6 oz pur e alcohol) Sex and Gender Information Value Date Recorded Sex Assigned at Male 05/15/2021 8:50 AM EDT Legal Sex Male 2:23 AM EDT Gender Identity Male 02/18/2019 3:39 PM EDT Sexual Orientation Straight 02/18/2019 3: 39 PM EDT documented as of this encounter Plan of Treatment Not on file documented as of this encounter Visit Diagnoses Not on filedocumented in this encounter Care Teams Toll Settlement Clerk Relationship Specialty Start Date End Date Hugh Beltrán MD PCP - General 08/09/17 documented as of this encounter
--- OUTSIDE RECORDS SUMMARY | 2025-02-26 13:26 | XMS_ITS | Encounter Summary ---
Author Organization [facility] Address [address] [place] [address] Care Team Providers Care Train Gate Attendant Name Role Phone Hugh Beltrán MD Primary Care Provider [phone] Encounter Details Date Type Department Care Team (Late st Contact Info) Description 07/11/2020 myChart Message [facility] [address] [place], [place] [id number] Mary Salazar, DO [address] [place] [address] RE: Non-Urgent Medical Question Social History Tobacco Use Types Packs/Day Years Used Date Smoking Tobacco: Former Cigarettes 0 07/14/1966 - 08/13/1968 Pipe Smokeless Tobacco: Never Comments:: Alcohol Use Standard Drinks/Week Comments Yes [...] on filedocumented in this encounter Care Teams Train Gate Attendant Relationship Specialty Start Date End Date Hugh Beltrán MD PCP - General 08/09/17 documented as of this encounter
--- OUTSIDE RECORDS SUMMARY | 2025-02-26 13:26 | XMS_ITS | Encounter Summary ---
Author Organization [facility] Address [address] [place] [address] Care Team Providers Care Credit Resolution Representative Name Role Phone Hugh Beltrán MD Primary Care Provider [phone] Encounter Details Date Type Department Care Team (Late st Contact Info) Description 10/09/2017 myChart Message [facility] Primary Care [address] [place] [address] Hugh Beltrán MD [address] [place] [address] Non-Urgent Medical Question Social History Tobacco Use [...] on filedocumented in this encounter Care Teams Credit Resolution Representative Relationship Specialty Start Date End Date Hugh Beltrán MD PCP - General 08/09/17 documented as of this encounter
--- OUTSIDE RECORDS SUMMARY | 2025-02-26 13:26 | XMS_ITS | Encounter Summary ---
Author Organization [facility] Address [address] [place] [address] Care Team Providers Care Hospital Librarian Name Role Phone Hugh Beltrán MD Primary Care Provider [phone] Encounter Details Date Type Department Care Team (Late st Contact Info) Description 01/28/2018 myChart Message [facility] Neurology Clinic [address] [place], [place] [phone] Mary Salazar, DO [address] [place] [address] RE: Prescription Question Social History Tobacco Use Types Packs/Day [...] on filedocumented in this encounter Care Teams Hospital Librarian Relationship Specialty Start Date End Date Hugh Beltrán MD PCP - General 08/09/17 documented as of this encounter
--- OUTSIDE RECORDS SUMMARY | 2025-02-26 13:26 | XMS_ITS | Encounter Summary ---
Author Organization [facility] Address [address] [place] [address] Care Team Providers Care Foot Roentgenologist Name Role Phone Hugh Beltrán MD Primary Care Provider Encounter Details Date Type Department Care Team (Late st Contact Info) Description 08/09/2020 myChart Message [facility] Neurology Clinic [address] [place], [place] [phone] Mary Salazar, DO [address] [place] [address] RE: Visit Follow-Up Question Social History Tobacco [...] on filedocumented in this encounter Care Teams Foot Roentgenologist Relationship Specialty Start Date End Date Hugh Beltrán MD PCP - General 08/09/17 documented as of this encounter
--- OUTSIDE RECORDS SUMMARY | 2025-02-26 13:26 | XMS_ITS | CCD ---
Author Name Interface, [id number] Address [address] [place] Address [address] [place] [address] Care Plan Reason for Visit Encounters Medications Administered Medications Problems Social History Vital Signs
--- OUTSIDE RECORDS SUMMARY | 2025-02-26 13:26 | XMS_ITS | Encounter Summary ---
Author Organization [facility] Address [address] [place] [address] Care Team Providers Care Informatica Mdm Developer Name Role Phone Hugh Beltrán MD Primary Care Provider [phone] Encounter Details Date Type Department Care Team (Late st Contact Info) Description 11/19/2017 myChart Message [facility] Primary Care [address] [place] [address] Hugh Beltrán MD [address] [place] [address] RE:Hip pain Social History Tobacco Use Types Packs/Day Years [...] on filedocumented in this encounter Care Teams Informatica Mdm Developer Relationship Specialty Start Date End Date Hugh Beltrán MD PCP - General 08/09/17 documented as of this encounter
--- OUTSIDE RECORDS SUMMARY | 2025-02-26 13:26 | XMS_ITS | Encounter Summary ---
Author Organization [facility] Address [address] [place] [phone] Care Team Providers Care Payroll Clerk Name Role Phone Hugh Beltrán MD Primary Care Provider Encounter Details Date Type Department Care Team (Latest Contact Info) Description 03/05/2018 myChart Message [facility] Dermatology Clinic [address]th [address] [place] [address], [place] [address] Executive Steward: Lois Voss MD [address] [place], [place] [id number] Prescription Question Social History Tobacco Use Types [...] on filedocumented in this encounter Care Teams Payroll Clerk Relationship Specialty Start Date End Date Hugh Beltrán MD PCP - General 08/09/17 documented as of this encounter
--- OUTSIDE RECORDS SUMMARY | 2025-02-26 13:26 | XMS_ITS | Clinical Summary ---
Author Organization [facility] Address [address] [facility] [place] [address] Care Team Providers Care Election Assistant Name Role Phone Aamir Mauricio MD Primary Care Provider [phone] Allergies Active Allergy Reactions Criticality Noted Date Comments Penicillins 2021 Medications tamsulosin (FLOMAX) 0.4 mg 24 hr capsule Take 0.4 mg total (1 capsule) by mouth daily. Active HYOSCYAMINE ORAL Take by mouth. Active ALPRAZOLAM ORAL Take by mouth. Active pantoprazole (PROTONIX) 40 mg tablet Take 40 mg total (1 tablet) by mouth 2 (two) times daily. 07/04/2022 Active enalapril (VASOTEC) 10 mg tablet Take 10 mg total (1 tablet) by mouth daily. 05/19/2022 Active levothyroxine (SYNTHROID, LEVOTHROID) 88 mcg tablet Take 88 mcg total (1 tablet) by mouth daily. 07/04/2022 Active oxybutynin (DITROPAN) 5 mg tablet Take 5 mg total (1 tablet) by mouth daily. 06/05/2022 Active latanoprost (XALATAN) 0.005 % ophthalmic solution SMARTSIG:In Eye(s) 11/26/2022 Active azaTHIOprine (IMURAN) 50 mg tablet Take 100 mg total (2 tablets) by mouth daily. 180 tablet 3 09/27/2023 Active pyridostigmine (MESTINON) 60 mg tablet Take 60 mg total (1 tablet) by mouth 2 (two) times daily. 180 tablet 1 01/01/2024 Active Family History Medical History Relation Name Comments Heart disease Father Relation Name Status Comments Father Social History Tobacco Use Types Packs/Day Years Used Date Smoking Tobacco: Former Smokeless Tobacco: Never Tobacco Cessation:Counseling Given: Not Answered Alcohol Use Standard Drinks/Week Comments Yes 0 (1 standard drink = 0.6 oz pur e alcohol) PHQ-2 Answer Date Recorded PHQ-9 Total Score 1 09/18/2023 Sex and Gender Information Value Date Recorded Sex Assigned at Not on file Legal Sex Male 1:29 PM EDT Gender Identity Not on file Sexual Orientation Not on file Last Filed Vital Signs Vital Sign Reading Time Taken Comments Blood Pressure 128/81 12/03/2023 8:35 AM EST Pulse 88 12/03/2023 8:35 AM EST Temperature 37 ??C (98.6 ??F) 09/18/2023 11:00 AM EST Respiratory Rate - - Oxygen Saturation 99% 12/03/2023 8:35 AM EST Inhaled Oxygen Concentration - - Weight 94.2 kg (207 lb 9.6 oz) 12/03/2023 8:35 A M EST Height 176.5 cm (5' 9.5 ) 2021 3:08 PM EDT Body Mass Index 30.22 2021 3:08 PM EDT Plan of Treatment Health Maintenance Due Date Last Done Comments Depression Screening & Follo w Up 1950 Medicare Annual Wellness (AWV) 1950 IMM SERIES: MMR Vaccines (1 of 1 - Standard series) 1949 IMM SERIES: Varicella Vaccin es (1 of 2 - 13+ 2-dose series) 1961 HEPATITIS C SCREENING 1966 Weight Management (Adult) 1966 Annual Exam for 40yo+ 1988 Colonoscopy 1998 IMM SERIES: Zoster (1 of 2) 1998 Pneumococcal Vaccine 65+ (1 of 1 - PCV) 1998 Falls Risk Assessment 2013 GLAUCOMA SCREENING 67+ YR 2015 IMM SERIES: DTAP/TDAP/TD/DTP (1 - Tdap) 08/22/2021 08/21/2021 IMM SERIES: SARS-COV2 and COVID-19 vaccines (3 - season) 2024 02/03/2021, 01/13/2021 Influenza Vaccine (Season Ended) 2025 08/19/2021 IMM SERIES: HIB Vaccines Aged Out No longer eligible based on patient's age to complete this topic IMM SERIES: HPV Vaccines Aged Out No longer eligible based on patient's age to complete this topic IMM SERIES: Hepatitis A Vaccine Aged Out No longer eligible b ased on patient's age to complete this topic IMM SERIES: Hepatitis B Vaccine Aged Out No longer eligible b ased on patient's age to complete this topic IMM SERIES: Meningococcal ACWY Aged Out No longer eligible based on patient's age to complete this topic IMM SERIES: Meningococcal B Vaccines Aged Out No longer eligible b ased on patient's age to complete this topic IMM SERIES: Polio Vaccines Aged Out N o longer eligible based on patient's age to complete this topic IMM SERIES: Rotavirus Vaccines Aged Out No longer eligible based on patient's age to complete this topic Insurance MEDICARE [facility] Care Teams Election Assistant Relationship Specialty [place] [id number] [address] [facility] - General 11/26/23
--- OUTSIDE RECORDS SUMMARY | 2025-02-26 13:26 | XMS_ITS | Encounter Summary ---
Author Organization [facility] Address [address] [place] [address] Care Team Providers Care Education Rn Name Role Phone Hugh Beltrán MD Primary Care Provider [phone] Encounter Details Date Type Department Care Team (Late st Contact Info) Description 12/06/2021 myChart Message [facility] Neurology Clinic [address] [place], [place] [phone] Mary Salazar, DO [address] [place] [address] Rx problems Social History Tobacco Use Types Packs/Day Years [...] on filedocumented in this encounter Care Teams Education Rn Relationship Specialty Start Date End Date Hugh Beltrán MD PCP - General 08/09/17 documented as of this encounter
--- OUTSIDE RECORDS SUMMARY | 2025-02-26 13:26 | XMS_ITS | Encounter Summary ---
Author Organization [facility] Address [address] [place] [address] Care Team Providers Care K9 Handler Name Role Phone Aamir Mauricio Primary Care Provider [phone] Encounter Details Date Type Department Care Team (Late st Contact Info) Description 10/25/2024 8:00 AM EST Hospital Encounter [facility] Hospital Outpatient [address] [place] [phone] Rebecca Grover MD [address] [place] [address] Social History Tobacco Use Types Packs/Day Years [...] 03/29/2025 9:00 AM EDT Office Visit [facility] [address] [place] [address] eRbecca Grover MD [address] [place], [place] [phone] documented as of this encounter Visit Diagnoses Not on filedocumented in this encounter Care Teams K9 Handler Relationship Specialty Start Date End Date Aamir Mauricio [address] [place] [address] PCP - General 01/01/24 documented as of this encounter
--- OUTSIDE RECORDS SUMMARY | 2025-02-26 13:26 | XMS_ITS | Encounter Summary ---
Author Organization [facility] Address [address] [place] [address] Care Team Providers Care Autoclave Operator Name Role Phone Hugh Beltrán MD Primary Care Provider [phone] Encounter Details Date Type Department Care Team (Late st Contact Info) Description 11/03/2017 myChart Message [facility] Primary Care [address] [place] [phone] Hugh Beltrán MD [address] [place] [address] RE: Prescription Question Social History Tobacco Use [...] on filedocumented in this encounter Care Teams Autoclave Operator Relationship Specialty Start Date End Date Hugh Beltrán MD PCP - General 08/09/17 documented as of this encounter
--- OUTSIDE RECORDS SUMMARY | 2025-02-26 13:26 | XMS_ITS | Encounter Summary ---
Author Organization [facility] Address [address] [place] [address] Care Team Providers Care Grip Wrapper Name Role Phone Hugh Beltrán MD Primary Care Provider [phone] Encounter Details Date Type Department Care Team (Late st Contact Info) Description 10/26/2020 myChart Message [facility] Neurology Clinic [address] [place], [place] [phone] Mary Salazar, DO [address] [place] [address] RE: Visit Follow-Up Question Social History Tobacco [...] on filedocumented in this encounter Care Teams Grip Wrapper Relationship Specialty Start Date End Date Hugh Beltrán MD PCP - General 08/09/17 documented as of this encounter
--- OUTSIDE RECORDS SUMMARY | 2025-02-26 13:26 | XMS_ITS | Encounter Summary ---
Author Organization [facility] Address [address] [place] [address] Care Team Providers Care Syrup Mixer Helper Name Role Phone Hugh Beltrán MD Primary Care Provider [phone] Encounter Details Date Type Department Care Team (Late st Contact Info) Description 10/31/2017 myChart Message [facility] Neurology Clinic [address] [place], [place] [phone] Mary Salazar, DO [address] [place] [address] RE: Test Results Question Social History Tobacco Use [...] on filedocumented in this encounter Care Teams Syrup Mixer Helper Relationship Specialty Start Date End Date Hugh Beltrán MD PCP - General 08/09/17 documented as of this encounter
--- OUTSIDE RECORDS SUMMARY | 2025-02-26 13:26 | XMS_ITS | Referral Summary ---
Author Organization [facility] Address [address] [place] [address] Care Team Providers Care Head Grower Name Role Phone Hugh Beltrán MD Primary Care Provider [phone] Allergies Active Allergy Reactions Criticality Noted Date [...] (08/15/2018): Added automatically from request for surgery [id number] Other long term care pharmacist (current) drug therapy 8 Assessment & Plan [...] (08/13/2018): Added automatically from request for surgery [id number] Decreased hearing of both ears 07/03/2018 Assessment [...] become intrusive. 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 At the [facility], he was hypotensive in the 90s-100s over [...] should rebleed he should present himself to [facility] instead of [facility] in order to have his scopes done more expeditiously. Furthermore, his hemoglobin has stabilized around 8.5. PLAN: - Gastroenterology consult, appreciate recommendations. - Regular diet - Discontinue IV fluids - A.m. CBC -IV Protonix 40 mg twice daily Assessment & Plan (08/21/2018 7:48 AM EDT): 08/21/2018 Favian has a history of gastric bypass surgery and was admitted to [facility] 08/12-08/15 in the setting of melena and [...] gastric bypass surgery and was admitted to [facility] in the setting of melena and rectal [...] gastric bypass surgery and was admitted to [facility] in the setting of melena and rectal [...] stools multiple times per day. At the [facility] he was hypotensive in the 90s-100s over [...] to improve, he will follow-up as needed. Guillain-[place] syndrome 05/21/200912/2017 Sleep apnea 05/21/2009 08/12/2018 Urticaria [...] 08/15/2020,08/19/2019,08/28/2018 Pneumococcal Polysaccharide Vaccine, 23 Valent 10/05/1997 Social History Tobacco Use Types Packs/Day Years [...] 03/07/2021 9:41 AM EDT Plan of Treatment Not on file Procedures * Due to [place] SHER[employer] law, this organization might not be sharing negative HIV tests. Procedure Name Priority Date/Time Associated Diagnosis Comments COMPREHENSIVE METABOLIC PANEL Routine 03/07/2021 12:28 PM EDT Myasthenia gravis COLONOSCOPY 11/20/2018 from Last 3 Months or Most Recently Relevant to Health Maintenance Results * Due to [place] [employer] law, this organization might not be sharing negative HIV tests. * (ABNORMAL) Comprehensive Metabolic Panel (03/07/2021 12:28 PM EDT) NA 141 135 - 145 mmol/L 03/07/2021 8:28 PM EDT [facility] K 4.1 3.5 - 5.3 mmol/L 03/07/2021 8:28 PM EDT [facility] Cl 109 97 - 110 mmol/L 03/07/2021 8:28 PM EDT [facility] CO2 24 24 - 32 mmol/L 03/07/2021 8:28 PM EDT [facility] Anion Gap 8 5 - 15 03/07/2021 8:28 PM EDT [email or web address] Glucose 97 70 - 99 mg/dL 03/07/2021 8:28 PM EDT [facility] Creatinine 1.01 0.60 - 1.30 mg/dL 03/07/2021 8:28 PM EDT [facility] eGFR Non- 74(L) >=90 mL/min/BS A 03/07/2021 8:28 PM EDT [facility] eGFR 86(L) >=90 mL/min/BS A 03/07/2021 8:28 PM EDT [facility] Comment: Units = mL/min/1.73 [...] - 10.7 mg/dL 03/07/2021 8:28 PM EDT [facility] Total Protein 6.6 6.0 - 8.0 g/dL 03/07/2021 8:28 PM EDT [facility] Albumin 4.3 3.5 - 4.8 g/dL 03/07/2021 8:28 PM EDT [facility] Bilirubin, Total 1.1 0.3 - 1.2 mg/dL 03/07/2021 8:28 PM EDT [facility] Alkaline Phosphatase 56 30 - 115 U/L 03/07/2021 8:28 PM EDT [facility] AST 27 10 - 40 U/L 03/07/2021 8:28 PM EDT [facility] ALT 13 10 - 40 U/L 03/07/2021 8:28 PM EDT [facility] BUN 18 7 - 23 mg/dL 03/07/2021 8:28 PM EDT [facility] Blood Structure of peripheral vein / Unknown Venipuncture / Unknown 03/07/2021 12:28 PM EDT 03/07/2021 12:28 PM EDT us Marygosia Salazar DO LAB BLOOD ORDERABLES Final Result [facility] [employer] [facility] [address] [place] [address], * COLONOSCOPY (11/20/2018) Narrative Procedure Note Jacob Khan MD PhD - 11/20/2018 8:01 AM EST Gastroenterology Patient Name: Favian Spink Procedure Date: 11/20/2018 8:01 AM Date of [...] by the physician,the nurse, the anesthesiologist, the operations research scientist and the research technician in the pre-procedure area in the [...] and oxygen saturations were monitored continuously. The [id number] was introduced through the anus and advanced [...] was done by the physician, nurse and research technician using the patient's name and date. [...] Documents on File Type Date Recorded Patient Washing Machine Operator Expl anation Health Care Proxy 03/03/2011 12:00 AM 10/12 Health Care Proxy 06/08/2009 12:00 AM 05/12 * Full Code (Latest Code Status on File) Date Activated Date Inactivated Comments 08/19/2018 9:16 PM 08/23/2018 12:24 PM * Full Code Date Activated Date Inactivated Comments 08/12/2018 10:16 PM 08/15/2018 1:11 PM Care Teams Head Grower Relationship Specialty Start Date End Date Hugh Beltrán MD PCP - General 08/09/17
--- OUTSIDE RECORDS SUMMARY | 2025-02-26 13:26 | XMS_ITS | Encounter Summary ---
Author Organization [facility] Address [address] [place] [address] Care Team Providers Care Line O Scribe Operator Name Role Phone Hugh Beltrán MD Primary Care Provider Encounter Details Date Type Department Care Team (Late st Contact Info) Description 05/30/2020 myChart Message [facility] Neurology Clinic [address] [place], [place] [phone] Mary Salazar, DO [address] [place] [address] RE:Mestinon Social History Tobacco Use Types Packs/Day Years [...] on filedocumented in this encounter Care Teams Line O Scribe Operator Relationship Specialty Start Date End Date Hugh Beltrán MD PCP - General 08/09/17 documented as of this encounter
--- OUTSIDE RECORDS SUMMARY | 2025-02-26 13:26 | XMS_ITS | Encounter Summary ---
Author Organization [facility] Address [address] [place] [address] Care Team Providers Care Senior Business Objects Developer Name Role Phone Hugh Beltrán MD Primary Care Provider Encounter Details Date Type Department Care Team (Late st Contact Info) Description 11/26/2017 myChart Message [facility] Neurology Clinic [address] [place], [place] [phone] Mary Salazar, DO [address] [place] [address] RE: Referral Request Social History Tobacco Use Types [...] on filedocumented in this encounter Care Teams Senior Business Objects Developer Relationship Specialty Start Date End Date Hugh Beltrán MD PCP - General 08/09/17 documented as of this encounter
--- OUTSIDE RECORDS SUMMARY | 2025-02-26 13:26 | XMS_ITS | Encounter Summary ---
Author Organization [facility] Address [address] [place] [address] Care Team Providers Care Luster Repairer Name Role Phone Hugh Beltrán MD Primary Care Provider [phone] Encounter Details Date Type Department Care Team (Late st Contact Info) Description 06/19/2021 Orders Only [facility] Interventional Radiology [address] [place] [address] Antelmo Johnson MD [address] [place] [address] Social History Tobacco Use Types Packs/Day Years [...] on filedocumented in this encounter Care Teams Luster Repairer Relationship Specialty Start Date End Date Hugh Beltrán MD PCP - General 08/09/17 documented as of this encounter
--- OUTSIDE RECORDS SUMMARY | 2025-02-26 13:26 | XMS_ITS | Encounter Summary ---
Author Organization [facility] Address [address] [place] [address] Care Team Providers Care Paper Products Supervisor Name Role Phone Hugh Beltrán MD Primary Care Provider Encounter Details Date Type Department Care Team (Late st Contact Info) Description 05/27/2020 myChart Message [facility] Neurology Clinic [address] [place], [place] [phone] Mary Salazar, DO [address] [place] [address] Visit Follow-Up Question Social History Tobacco Use [...] on filedocumented in this encounter Care Teams Paper Products Supervisor Relationship Specialty Start Date End Date Hugh Beltrán MD PCP - General 08/09/17 documented as of this encounter
--- OUTSIDE RECORDS SUMMARY | 2025-02-26 13:26 | XMS_ITS | Encounter Summary ---
Author Organization [facility] Address [address] [place] [address] Care Team Providers Care Returned Goods Repairer Name Role Phone Hugh Beltrán MD Primary Care Provider [phone] Encounter Details Date Type Department Care Team (Late st Contact Info) Description 12/11/2021 myChart Message [facility] Operating Room [address] [place] [phone] Mychart, Generic Provider [address] [place], [place] [phone] Dr. Napier will be on vacation 03/05 Social History Tobacco Use Types Packs/Day Years [...] on filedocumented in this encounter Care Teams Returned Goods Repairer Relationship Specialty Start Date End Date Hugh Beltrán MD PCP - General 08/09/17 documented as of this encounter
--- OUTSIDE RECORDS SUMMARY | 2025-02-26 13:26 | XMS_ITS | Encounter Summary ---
Author Organization [facility] Address [address] [place] [address] Care Team Providers Care Meat Department Manager Name Role Phone Hugh Beltrán MD Primary Care Provider [phone] Encounter Details Date Type Department Care Team (Late st Contact Info) Description 11/15/2017 myChart Message [facility] Primary Care [address] [place] [phone] Hugh Beltrán MD [address] [place] [phone] RE: Prescription Question Social History Tobacco Use [...] PM EDT documented as of this encounter Miscellaneous Notes * Telephone Encounter - Oleg Cartagena CMA - 11/15/2017 1:43 PM ESTFrom: Favian [place] To: Hugh Beltrán MD Sent: 11/15/2017 11:22 AM EST Subject: Prescription Question Dr. Beltrán, I called the health center earlier this week asking that you renew my Rx for 25 mg tabs of Hyoscyamine, 120 tablets, at the [facility] in [place]. The number is [phone]. As of this moment, I have 7 tabs left, enough for a week. If I need to come to [place] to fiber picker a paper Rx for this renewal, let me know as soon as possible.I would also ask that this be filled with 3 renewals, as I've experienced positive bladder control and no ill effects from taking this medication. Thanks, Adair documented in this encounter Plan of Treatment Not on file documented as of this encounter Visit Diagnoses Not on filedocumented in this encounter Care Teams Meat Department Manager Relationship Specialty Start Date End Date Hugh Beltrán MD PCP - General 08/09/17 documented as of this encounter
--- OUTSIDE RECORDS SUMMARY | 2025-02-26 13:26 | XMS_ITS | Encounter Summary ---
Author Organization [facility] Address [address] [place] [address] Care Team Providers Care Ore Storage Drier Name Role Phone AmirahabilioTracykoki Primary Care Provider Encounter Details Date Type Department Care Team (Late Contact Info) Description 02/19/2025 Orders Only [facility] [address] [place] [address] Rebecca Grover MD [address] [place], [place] [phone] Social History Tobacco Use Types Packs/Day Years [...] Description 03/29/2025 9:00 AM EDT Office Visit [facility] [address] [place] [address] Rebecca Grover MD [address] [place], [place] [phone] documented as of this encounter Visit Diagnoses Not on filedocumented in this encounter Care Teams Ore Storage Drier Relationship Specialty Start Date End Date Aamir Mauricio [address] [place] [address] PCP - General 01/01/24 documented as of this encounter
--- OUTSIDE RECORDS SUMMARY | 2025-02-26 13:26 | XMS_ITS | Encounter Summary ---
Author Organization [facility] Address [address] [place] [address] Care Team Providers Care Mobile Lab Technician Name Role Phone Hugh Beltrán MD Primary Care Provider [phone] Encounter Details Date Type Department Care Team (Late st Contact Info) Description 01/03/2022 myChart Message [facility] Operating Room [address] [place] [id number] Mychart, Generic Provider [address] [place], [place] [id number] Dr. Napier will be on vacation 03/19 Social History Tobacco Use Types Packs/Day Years [...] on filedocumented in this encounter Care Teams Mobile Lab Technician Relationship Specialty Start Date End Date Hugh Beltrán MD PCP - General 08/09/17 documented as of this encounter
--- OUTSIDE RECORDS SUMMARY | 2025-02-26 13:26 | XMS_ITS | Encounter Summary ---
Author Organization [facility] Address [address] [place] [address] Care Team Providers Care Brake Tester Name Role Phone Hugh Beltrán MD Primary Care Provider [phone] Encounter Details Date Type Department Care Team (Late st Contact Info) Description 11/21/2017 myChart Message [facility] [address] [place], [place] [id number] Mary Salazar, DO [address] [place] [address] RE: Visit Follow-Up Question Social History Tobacco [...] on filedocumented in this encounter Care Teams Brake Tester Relationship Specialty Start Date End Date Hugh Beltrán MD PCP - General 08/09/17 documented as of this encounter
== END 2025-02-26 14:18 | disposition home or self-care (01) ==
LOC: HO.HNS 12:53
PROVIDERS: Visit Provider Neurological Surgery
DX: M54.16 Radiculopathy, lumbar region (principal)
CPT/HCPCS: 99204

== ENCOUNTER 2025-02-26 12:52 | Outpatient (REF) | payer MEDICARE, SELFPAY ==
--- NOTE | ~2025-02-26 | XR_ITS ---
EXAMINATION: XR LUMBOSACRAL SPINE CLINICAL INFORMATION: M54.16 - Radiculopathy, lumbar region COMPARISON: None available. TECHNIQUE: 4 views of the lumbar spine, inclusive of flexion and extension views, were obtained. FINDINGS: There is a moderate levoconvex scoliosis, apex at L3-4. There is a reversal of the normal lordosis centered at L2-3. No acute fracture or compression deformity. No suspicious bone lesion. There has been prior fusion of L2-3 with transpedicular screws, posterior connecting rods. There has been associated discectomy with disc prosthesis, and associated laminectomies. The hardware appears intact intact. There is subtle lucency surrounding the superior left L2 transpedicular screw, only well seen on the AP projection. No additional definite loosening seen. There is bony fusion through the disc space of L1-2 and L2-3. Severe disc degeneration present at L3-4, with moderate changes L4-5 and L5-S1, as well as L1-2. Multilevel degenerative facet changes present. Neutral view demonstrates significant retrolisthesis of L1 on L2 and L2 on L3, static in flexion and extension. There is a subtle retrolisthesis of L3 on L4 and anterolisthesis of L4 on L5, which are static on flexion and extension. No evidence of instability on these radiographs. Mild vascular calcifications in the soft tissues. XR/XR lumbar spine 4V min IMPRESSION: 1. Advanced degenerative spondylosis with associated levoconvex scoliosis. 2. Dorsal fusion of L2-3 with transpedicular screws and posterior connecting rods. Subtle lucency surrounding the superior left L2 screw. Cannot exclude loosening. 3. Bony fusion through the L1-L2 3 disc spaces. 4. No definite evidence of instability on flexion and extension radiographs. Electronically signed by: Willie Triana MD 02/26/2025 02:04 PM EDT
--- OUTSIDE RECORDS SUMMARY | 2025-02-26 14:02 | XMS_ITS | Encounter Summary ---
Author Organization [facility] Address [address] [place] [address] Care Team Providers Care Health Spa Manager Name Role Phone Aamir Mauricio Primary Care Provider [phone] Reason for Visit * Reason Onset Date Comments Med Refill 02/15/2025 Encounter Details Date Type Department Care Team (Late Contact Info) Description 02/15/2025 Refill [facility] [address] [place] [address] Rebecca Grover MD [address] [place] [address] Myasthenia gravis ([facility]) Social History Tobacco Use Types Packs/Day Years [...] Description 03/29/2025 9:00 AM EDT Office Visit [facility] [address] [place] [address] Rebecca Grover MD [address] [place] [address] documented as of this encounter Visit Diagnoses Diagnosis Myasthenia gravis (CMS/HCC) Myasthenia gravis without exacerbation documented in this encounter Care Teams Health Spa Manager Relationship Specialty Start Date End Date JadcmJessica knoxkarol [address] [place] [address] PCP - General 01/01/24 documented as of this encounter
--- OUTSIDE RECORDS SUMMARY | 2025-02-26 14:02 | XMS_ITS | Encounter Summary ---
Author Organization [facility] Address [address] [place] [address] Care Team Providers Care Water Mangle Tender Name Role Phone Hugh Beltrán MD Primary Care Provider [phone] Encounter Details Date Type Department Care Team (Late st Contact Info) Description 05/30/2020 myChart Message [facility] [address] [place], [place] [id number] Mary Salazar, DO [address] [place] [address] RE:[place] Social History Tobacco Use Types Packs/Day [...] on filedocumented in this encounter Care Teams Water Mangle Tender Relationship Specialty Start Date End Date Hugh Beltrán MD PCP - General 08/09/17 documented as of this encounter
--- OUTSIDE RECORDS SUMMARY | 2025-02-26 14:02 | XMS_ITS | CCD ---
Author Name Interface, [id number] lity Address [address] [place] [address] Organization [facility] Address [address] [place] [address] Care Plan Date Type Value 02/19/2025 APPOINTMENT Vyvgart Hytrulo 1008mg weekly x4 doses, q 50 days, BB, TARA 02/12/2025 APPOINTMENT Vyvgart Hytrulo 1008mg weekly x4 doses, q 50 days, BB, TARA 01/08/2025 APPOINTMENT Vyvgart Hytrulo 1008mg weekly x4 doses, q 50 days, BB, TARA 01/01/2025 APPOINTMENT Vyvgart Hytrulo 1008mg weekly x4 doses, q 50 days, BB, TARA 12/25/2024 APPOINTMENT Vyvgart Hytrulo 1008mg weekly x4 doses, q 50 days, BB, TARA 12/18/2024 APPOINTMENT Vyvgart Hytrulo 1008mg weekly x4 doses, q 50 days, BB, TARA 11/13/2024 APPOINTMENT Vyvgart Hytrulo 1008mg weekly x4 doses, q 50 days, BB, TARA 11/06/2024 APPOINTMENT Vyvgart Hytrulo 1008mg weekly x4 doses, q 50 days, BB, TARA 10/30/2024 APPOINTMENT Vyvgart Hytrulo 1008mg weekly x4 doses, q 50 days, BB, TARA 10/23/2024 APPOINTMENT Vyvgart Hytrulo 1008mg weekly x4 doses, q 50 days, BB, TARA 09/18/2024 APPOINTMENT Vyvgart Hytrulo 1008mg weekly x4 doses, q 50 days, BB, TARA 09/18/2024 APPOINTMENT Vyvgart Hytrulo 1008mg weekly x4 doses, q 50 days, BB, TARA 09/18/2024 APPOINTMENT Vyvgart Hytrulo (Acuity 0) 09/11/2024 APPOINTMENT Vyvgart Hytrulo 1008mg weekly x4 doses, q 50 days, BB, TARA 09/04/2024 APPOINTMENT Vyvgart Hytrulo 1008mg weekly x4 doses, q 50 days, BB, TARA 08/28/2024 APPOINTMENT Vyvgart Hytrulo 1008mg weekly x4 doses, q 50 days, BB, TARA 07/22/2024 APPOINTMENT Vyvgart Hytrulo 1008mg weekly x4 doses, q 50 days, BB, TARA 07/17/2024 APPOINTMENT Vyvgart Hytrulo 1008mg weekly x4 doses, q 50 days, BB, TARA 07/14/2024 APPOINTMENT Vyvgart Hytrulo 1008mg weekly x4 doses, q 50 days, BB, TARA 07/10/2024 APPOINTMENT Vyvgart Hytrulo (Acuity 0) 07/07/2024 APPOINTMENT Vyvgart Hytrulo 1008mg weekly x4 doses, q 50 days, BB, TARA 07/03/2024 APPOINTMENT Vyvgart Hytrulo 1008mg weekly x4 doses, q 50 days, BB, TARA 06/26/2024 APPOINTMENT Vyvgart Hytrulo 1008mg weekly x4 doses, q 50 days, BB, TARA 05/26/2024 APPOINTMENT Vyvgart Hytrulo 1008mg weekly x4 doses, q 50 days, BB, TARA 05/19/2024 APPOINTMENT Vyvgart Hytrulo 1008mg weekly x4 doses, q 50 days, BB, TARA 05/12/2024 APPOINTMENT Vyvgart Hytrulo 1008mg weekly x4 doses, q 50 days, BB, TARA 05/05/2024 APPOINTMENT Vyvgart Hytrulo 1008mg weekly x4 doses, q 50 days, BB, TARA 04/04/2024 APPOINTMENT Vyvgart Hytrulo (Acuity 0) 03/28/2024 APPOINTMENT Vyvgart Hytrulo 1008mg weekly x4 doses, q 50 days, BB, TARA 03/21/2024 APPOINTMENT Vyvgart Hytrulo 1008mg weekly x4 doses, q 50 days, BB, TARA 03/14/2024 APPOINTMENT Vyvgart Hytrulo (Acuity 0) Reason for Visit Vyvgart Hytrulo 1008mg weekly x4 doses, q 50 days, TARA VELASCO Encounters Date Name 02/19/2025 Myasthenia gravis wi thout exacerbation (disorder) 02/12/2025 Myasthenia gravis wi thout exacerbation (disorder) 02/19/2025 Vyvgart Hytrulo 1008 mg weekly x4 doses, q 50 days, TARA VELASCO 02/12/2025 Vyvgart Hytrulo 1008 mg weekly x4 doses, q 50 days, TARA VELASCO Medications Administered Date Name Route Dose Frequency Instructions Start Date End Date Status 02/19 5.6 ML efgartigimod byron-qvfc 180 MG/ML / hyaluronidas e-qvfc 2000 UNT/ML Injection [Vyvgart Hytrulo] subcutaneousl y 5.6 mL every week VYVGART HYTRULO is for subcutaneous use only and administered with a winged infusion set. Do NOT administer intravenously. The recommended dosage of VYVGART HYTRULO is 1,008 mg / 11,200 units (1,008 mg efgartigimod byron and 11,200 units hyaluronidase) administered subcutaneously over approximately 30 to 90 seconds in cycles of once weekly injections for 4 weeks.Withdraw the entire content of VYVGART HYTRULO from the vial using a polypropylene syringe and an 18G stainless steel transfer needle. To administer VYVGART HYTRULO use a winged infusion set made of polyvinyl chloride(PVC), 25G, 12 inches tubing, maximum priming volume of 0.4 mL. Remove the transfer needle from the syringe and connect the syringe to the winged infusion set.Prior to administration, fill the tubing of the winged infusion set by gently pressing thesyringe plunger until the plunger is at 5.6 mL. There should be solution at the end of thewinged infusion set needle.Choose an injection site on the abdomen (at least 2 to 3 inches away from the navel).Do not inject on areas where the skin is red, bruised, tender, hard, or into areas wherethere are moles or scars.Rotate injection sites for subsequent administrations.Inje ct VYVGART HYTRULO subcutaneously into a pinched skin area at an angle of about45 degrees over 30 to 90 seconds.Localized injection site reactions may occur after VYVGART HYTRULO is administered.Discard any unused portions of medicine remaining in the vial, the syringe and the wingedinfusion set.Healthcare professionals should monitor for clinical signs and symptoms of hypersensitivityreac tions for at least 30 minutes after administration. If a hypersensitivity reaction occurs,the healthcare professional should institute appropriate measures if needed or the patientshould seek medical attention. 02/19 inactive 02/12 5.6 ML efgartigimod byron-qvfc 180 MG/ML / hyaluronidas e-qvfc 2000 UNT/ML Injection [Vyvgart Hytrulo] subcutaneousl y 5.6 mL every week VYVGART HYTRULO is for subcutaneous use only and administered with a winged infusion set. Do NOT administer intravenously. The recommended dosage of VYVGART HYTRULO is 1,008 mg / 11,200 units (1,008 mg efgartigimod byron and 11,200 units hyaluronidase) administered subcutaneously over approximately 30 to 90 seconds in cycles of once weekly injections for 4 weeks.Withdraw the entire content of VYVGART HYTRULO from the vial using a polypropylene syringe and an 18G stainless steel transfer needle. To administer VYVGART HYTRULO use a winged infusion set made of polyvinyl chloride(PVC), 25G, 12 inches tubing, maximum priming volume of 0.4 mL. Remove the transfer needle from the syringe and connect the syringe to the winged infusion set.Prior to administration, fill the tubing of the winged infusion set by gently pressing thesyringe plunger until the plunger is at 5.6 mL. There should be solution at the end of thewinged infusion set needle.Choose an injection site on the abdomen (at least 2 to 3 inches away from the navel).Do not inject on areas where the skin is red, bruised, tender, hard, or into areas wherethere are moles or scars.Rotate injection sites for subsequent administrations.Inje ct VYVGART HYTRULO subcutaneously into a pinched skin area at an angle of about45 degrees over 30 to 90 seconds.Localized injection site reactions may occur after VYVGART HYTRULO is administered.Discard any unused portions of medicine remaining in the vial, the syringe and the wingedinfusion set.Healthcare professionals should monitor for clinical signs and symptoms of hypersensitivityreac tions for at least 30 minutes after administration. If a hypersensitivity reaction occurs,the healthcare professional should institute appropriate measures if needed or the patientshould seek medical attention. 02/12 inactive 01/08 5.6 ML efgartigimod byron-qvfc 180 MG/ML / hyaluronidas e-qvfc 2000 UNT/ML Injection [Vyvgart Hytrulo] subcutaneousl y 5.6 mL every week VYVGART HYTRULO is for subcutaneous use only and administered with a winged infusion set. Do NOT administer intravenously. The recommended dosage of VYVGART HYTRULO is 1,008 mg / 11,200 units (1,008 mg efgartigimod byron and 11,200 units hyaluronidase) administered subcutaneously over approximately 30 to 90 seconds in cycles of once weekly injections for 4 weeks.Withdraw the entire content of VYVGART HYTRULO from the vial using a polypropylene syringe and an 18G stainless steel transfer needle. To administer VYVGART HYTRULO use a winged infusion set made of polyvinyl chloride(PVC), 25G, 12 inches tubing, maximum priming volume of 0.4 mL. Remove the transfer needle from the syringe and connect the syringe to the winged infusion set.Prior to administration, fill the tubing of the winged infusion set by gently pressing thesyringe plunger until the plunger is at 5.6 mL. There should be solution at the end of thewinged infusion set needle.Choose an injection site on the abdomen (at least 2 to 3 inches away from the navel).Do not inject on areas where the skin is red, bruised, tender, hard, or into areas wherethere are moles or scars.Rotate injection sites for subsequent administrations.Inje ct VYVGART HYTRULO subcutaneously into a pinched skin area at an angle of about45 degrees over 30 to 90 seconds.Localized injection site reactions may occur after VYVGART HYTRULO is administered.Discard any unused portions of medicine remaining in the vial, the syringe and the wingedinfusion set.Healthcare professionals should monitor for clinical signs and symptoms of hypersensitivityreac tions for at least 30 minutes after administration. If a hypersensitivity reaction occurs,the healthcare professional should institute appropriate measures if needed or the patientshould seek medical attention. 01/08 inactive 01/01 5.6 ML efgartigimod byron-qvfc 180 MG/ML / hyaluronidas e-qvfc 2000 UNT/ML Injection [Vyvgart Hytrulo] subcutaneousl y 5.6 mL every week VYVGART HYTRULO is for subcutaneous use only and administered with a winged infusion set. Do NOT administer intravenously. The recommended dosage of VYVGART HYTRULO is 1,008 mg / 11,200 units (1,008 mg efgartigimod byron and 11,200 units hyaluronidase) administered subcutaneously over approximately 30 to 90 seconds in cycles of once weekly injections for 4 weeks.Withdraw the entire content of VYVGART HYTRULO from the vial using a polypropylene syringe and an 18G stainless steel transfer needle. To administer VYVGART HYTRULO use a winged infusion set made of polyvinyl chloride(PVC), 25G, 12 inches tubing, maximum priming volume of 0.4 mL. Remove the transfer needle from the syringe and connect the syringe to the winged infusion set.Prior to administration, fill the tubing of the winged infusion set by gently pressing thesyringe plunger until the plunger is at 5.6 mL. There should be solution at the end of thewinged infusion set needle.Choose an injection site on the abdomen (at least 2 to 3 inches away from the navel).Do not inject on areas where the skin is red, bruised, tender, hard, or into areas wherethere are moles or scars.Rotate injection sites for subsequent administrations.Inje ct VYVGART HYTRULO subcutaneously into a pinched skin area at an angle of about45 degrees over 30 to 90 seconds.Localized injection site reactions may occur after VYVGART HYTRULO is administered.Discard any unused portions of medicine remaining in the vial, the syringe and the wingedinfusion set.Healthcare professionals should monitor for clinical signs and symptoms of hypersensitivityreac tions for at least 30 minutes after administration. If a hypersensitivity reaction occurs,the healthcare professional should institute appropriate measures if needed or the patientshould seek medical attention. 01/01 inactive 12/25 5.6 ML efgartigimod byron-qvfc 180 MG/ML / hyaluronidas e-qvfc 2000 UNT/ML Injection [Vyvgart Hytrulo] subcutaneousl y 5.6 mL every week VYVGART HYTRULO is for subcutaneous use only and administered with a winged infusion set. Do NOT administer intravenously. The recommended dosage of VYVGART HYTRULO is 1,008 mg / 11,200 units (1,008 mg efgartigimod byron and 11,200 units hyaluronidase) administered subcutaneously over approximately 30 to 90 seconds in cycles of once weekly injections for 4 weeks.Withdraw the entire content of VYVGART HYTRULO from the vial using a polypropylene syringe and an 18G stainless steel transfer needle. To administer VYVGART HYTRULO use a winged infusion set made of polyvinyl chloride(PVC), 25G, 12 inches tubing, maximum priming volume of 0.4 mL. Remove the transfer needle from the syringe and connect the syringe to the winged infusion set.Prior to administration, fill the tubing of the winged infusion set by gently pressing thesyringe plunger until the plunger is at 5.6 mL. There should be solution at the end of thewinged infusion set needle.Choose an injection site on the abdomen (at least 2 to 3 inches away from the navel).Do not inject on areas where the skin is red, bruised, tender, hard, or into areas wherethere are moles or scars.Rotate injection sites for subsequent administrations.Inje ct VYVGART HYTRULO subcutaneously into a pinched skin area at an angle of about45 degrees over 30 to 90 seconds.Localized injection site reactions may occur after VYVGART HYTRULO is administered.Discard any unused portions of medicine remaining in the vial, the syringe and the wingedinfusion set.Healthcare professionals should monitor for clinical signs and symptoms of hypersensitivityreac tions for at least 30 minutes after administration. If a hypersensitivity reaction occurs,the healthcare professional should institute appropriate measures if needed or the patientshould seek medical attention. 12/25 inactive 12/18 5.6 ML efgartigimod byron-qvfc 180 MG/ML / hyaluronidas e-qvfc 2000 UNT/ML Injection [Vyvgart Hytrulo] subcutaneousl y 5.6 mL every week VYVGART HYTRULO is for subcutaneous use only and administered with a winged infusion set. Do NOT administer intravenously. The recommended dosage of VYVGART HYTRULO is 1,008 mg / 11,200 units (1,008 mg efgartigimod byron and 11,200 units hyaluronidase) administered subcutaneously over approximately 30 to 90 seconds in cycles of once weekly injections for 4 weeks.Withdraw the entire content of VYVGART HYTRULO from the vial using a polypropylene syringe and an 18G stainless steel transfer needle. To administer VYVGART HYTRULO use a winged infusion set made of polyvinyl chloride(PVC), 25G, 12 inches tubing, maximum priming volume of 0.4 mL. Remove the transfer needle from the syringe and connect the syringe to the winged infusion set.Prior to administration, fill the tubing of the winged infusion set by gently pressing thesyringe plunger until the plunger is at 5.6 mL. There should be solution at the end of thewinged infusion set needle.Choose an injection site on the abdomen (at least 2 to 3 inches away from the navel).Do not inject on areas where the skin is red, bruised, tender, hard, or into areas wherethere are moles or scars.Rotate injection sites for subsequent administrations.Inje ct VYVGART HYTRULO subcutaneously into a pinched skin area at an angle of about45 degrees over 30 to 90 seconds.Localized injection site reactions may occur after VYVGART HYTRULO is administered.Discard any unused portions of medicine remaining in the vial, the syringe and the wingedinfusion set.Healthcare professionals should monitor for clinical signs and symptoms of hypersensitivityreac tions for at least 30 minutes after administration. If a hypersensitivity reaction occurs,the healthcare professional should institute appropriate measures if needed or the patientshould seek medical attention. 12/18 inactive 01/03 /2025 5.6 ML efgartigimod byron-qvfc 180 MG/ML / hyaluronidas e-qvfc 2000 UNT/ML Injection [Vyvgart Hytrulo] subcutaneousl y 5.6 mL every week VYVGART HYTRULO is for subcutaneous use only and administered with a winged infusion set. Do NOT administer intravenously. The recommended dosage of VYVGART HYTRULO is 1,008 mg / 11,200 units (1,008 mg efgartigimod byron and 11,200 units hyaluronidase) administered subcutaneously over approximately 30 to 90 seconds in cycles of once weekly injections for 4 weeks.Withdraw the entire content of VYVGART HYTRULO from the vial using a polypropylene syringe and an 18G stainless steel transfer needle. To administer VYVGART HYTRULO use a winged infusion set made of polyvinyl chloride(PVC), 25G, 12 inches tubing, maximum priming volume of 0.4 mL. Remove the transfer needle from the syringe and connect the syringe to the winged infusion set.Prior to administration, fill the tubing of the winged infusion set by gently pressing thesyringe plunger until the plunger is at 5.6 mL. There should be solution at the end of thewinged infusion set needle.Choose an injection site on the abdomen (at least 2 to 3 inches away from the navel).Do not inject on areas where the skin is red, bruised, tender, hard, or into areas wherethere are moles or scars.Rotate injection sites for subsequent administrations.Inje ct VYVGART HYTRULO subcutaneously into a pinched skin area at an angle of about45 degrees over 30 to 90 seconds.Localized injection site reactions may occur after VYVGART HYTRULO is administered.Discard any unused portions of medicine remaining in the vial, the syringe and the wingedinfusion set.Healthcare professionals should monitor for clinical signs and symptoms of hypersensitivityreac tions for at least 30 minutes after administration. If a hypersensitivity reaction occurs,the healthcare professional should institute appropriate measures if needed or the patientshould seek medical attention. 11/13 inactive 11/06 5.6 ML efgartigimod byron-qvfc 180 MG/ML / hyaluronidas e-qvfc 2000 UNT/ML Injection [Vyvgart Hytrulo] subcutaneousl y 5.6 mL every week VYVGART HYTRULO is for subcutaneous use only and administered with a winged infusion set. Do NOT administer intravenously. The recommended dosage of VYVGART HYTRULO is 1,008 mg / 11,200 units (1,008 mg efgartigimod byron and 11,200 units hyaluronidase) administered subcutaneously over approximately 30 to 90 seconds in cycles of once weekly injections for 4 weeks.Withdraw the entire content of VYVGART HYTRULO from the vial using a polypropylene syringe and an 18G stainless steel transfer needle. To administer VYVGART HYTRULO use a winged infusion set made of polyvinyl chloride(PVC), 25G, 12 inches tubing, maximum priming volume of 0.4 mL. Remove the transfer needle from the syringe and connect the syringe to the winged infusion set.Prior to administration, fill the tubing of the winged infusion set by gently pressing thesyringe plunger until the plunger is at 5.6 mL. There should be solution at the end of thewinged infusion set needle.Choose an injection site on the abdomen (at least 2 to 3 inches away from the navel).Do not inject on areas where the skin is red, bruised, tender, hard, or into areas wherethere are moles or scars.Rotate injection sites for subsequent administrations.Inje ct VYVGART HYTRULO subcutaneously into a pinched skin area at an angle of about45 degrees over 30 to 90 seconds.Localized injection site reactions may occur after VYVGART HYTRULO is administered.Discard any unused portions of medicine remaining in the vial, the syringe and the wingedinfusion set.Healthcare professionals should monitor for clinical signs and symptoms of hypersensitivityreac tions for at least 30 minutes after administration. If a hypersensitivity reaction occurs,the healthcare professional should institute appropriate measures if needed or the patientshould seek medical attention. 11/06 inactive 10/30 5.6 ML efgartigimod byron-qvfc 180 MG/ML / hyaluronidas e-qvfc 2000 UNT/ML Injection [Vyvgart Hytrulo] subcutaneousl y 5.6 mL every week VYVGART HYTRULO is for subcutaneous use only and administered with a winged infusion set. Do NOT administer intravenously. The recommended dosage of VYVGART HYTRULO is 1,008 mg / 11,200 units (1,008 mg efgartigimod byron and 11,200 units hyaluronidase) administered subcutaneously over approximately 30 to 90 seconds in cycles of once weekly injections for 4 weeks.Withdraw the entire content of VYVGART HYTRULO from the vial using a polypropylene syringe and an 18G stainless steel transfer needle. To administer VYVGART HYTRULO use a winged infusion set made of polyvinyl chloride(PVC), 25G, 12 inches tubing, maximum priming volume of 0.4 mL. Remove the transfer needle from the syringe and connect the syringe to the winged infusion set.Prior to administration, fill the tubing of the winged infusion set by gently pressing thesyringe plunger until the plunger is at 5.6 mL. There should be solution at the end of thewinged infusion set needle.Choose an injection site on the abdomen (at least 2 to 3 inches away from the navel).Do not inject on areas where the skin is red, bruised, tender, hard, or into areas wherethere are moles or scars.Rotate injection sites for subsequent administrations.Inje ct VYVGART HYTRULO subcutaneously into a pinched skin area at an angle of about45 degrees over 30 to 90 seconds.Localized injection site reactions may occur after VYVGART HYTRULO is administered.Discard any unused portions of medicine remaining in the vial, the syringe and the wingedinfusion set.Healthcare professionals should monitor for clinical signs and symptoms of hypersensitivityreac tions for at least 30 minutes after administration. If a hypersensitivity reaction occurs,the healthcare professional should institute appropriate measures if needed or the patientshould seek medical attention. 10/30 inactive 10/23 5.6 ML efgartigimod byron-qvfc 180 MG/ML / hyaluronidas e-qvfc 2000 UNT/ML Injection [Vyvgart Hytrulo] subcutaneousl y 5.6 mL every week VYVGART HYTRULO is for subcutaneous use only and administered with a winged infusion set. Do NOT administer intravenously. The recommended dosage of VYVGART HYTRULO is 1,008 mg / 11,200 units (1,008 mg efgartigimod byron and 11,200 units hyaluronidase) administered subcutaneously over approximately 30 to 90 seconds in cycles of once weekly injections for 4 weeks.Withdraw the entire content of VYVGART HYTRULO from the vial using a polypropylene syringe and an 18G stainless steel transfer needle. To administer VYVGART HYTRULO use a winged infusion set made of polyvinyl chloride(PVC), 25G, 12 inches tubing, maximum priming volume of 0.4 mL. Remove the transfer needle from the syringe and connect the syringe to the winged infusion set.Prior to administration, fill the tubing of the winged infusion set by gently pressing thesyringe plunger until the plunger is at 5.6 mL. There should be solution at the end of thewinged infusion set needle.Choose an injection site on the abdomen (at least 2 to 3 inches away from the navel).Do not inject on areas where the skin is red, bruised, tender, hard, or into areas wherethere are moles or scars.Rotate injection sites for subsequent administrations.Inje ct VYVGART HYTRULO subcutaneously into a pinched skin area at an angle of about45 degrees over 30 to 90 seconds.Localized injection site reactions may occur after VYVGART HYTRULO is administered.Discard any unused portions of medicine remaining in the vial, the syringe and the wingedinfusion set.Healthcare professionals should monitor for clinical signs and symptoms of hypersensitivityreac tions for at least 30 minutes after administration. If a hypersensitivity reaction occurs,the healthcare professional should institute appropriate measures if needed or the patientshould seek medical attention. 10/23 inactive 09/18 5.6 ML efgartigimod byron-qvfc 180 MG/ML / hyaluronidas e-qvfc 2000 UNT/ML Injection [Vyvgart Hytrulo] subcutaneousl y 5.6 mL every week VYVGART HYTRULO is for subcutaneous use only and administered with a winged infusion set. Do NOT administer intravenously. The recommended dosage of VYVGART HYTRULO is 1,008 mg / 11,200 units (1,008 mg efgartigimod byron and 11,200 units hyaluronidase) administered subcutaneously over approximately 30 to 90 seconds in cycles of once weekly injections for 4 weeks.Withdraw the entire content of VYVGART HYTRULO from the vial using a polypropylene syringe and an 18G stainless steel transfer needle. To administer VYVGART HYTRULO use a winged infusion set made of polyvinyl chloride(PVC), 25G, 12 inches tubing, maximum priming volume of 0.4 mL. Remove the transfer needle from the syringe and connect the syringe to the winged infusion set.Prior to administration, fill the tubing of the winged infusion set by gently pressing thesyringe plunger until the plunger is at 5.6 mL. There should be solution at the end of thewinged infusion set needle.Choose an injection site on the abdomen (at least 2 to 3 inches away from the navel).Do not inject on areas where the skin is red, bruised, tender, hard, or into areas wherethere are moles or scars.Rotate injection sites for subsequent administrations.Inje ct VYVGART HYTRULO subcutaneously into a pinched skin area at an angle of about45 degrees over 30 to 90 seconds.Localized injection site reactions may occur after VYVGART HYTRULO is administered.Discard any unused portions of medicine remaining in the vial, the syringe and the wingedinfusion set.Healthcare professionals should monitor for clinical signs and symptoms of hypersensitivityreac tions for at least 30 minutes after administration. If a hypersensitivity reaction occurs,the healthcare professional should institute appropriate measures if needed or the patientshould seek medical attention. 09/18 inactive 09/11 5.6 ML efgartigimod byron-qvfc 180 MG/ML / hyaluronidas e-qvfc 2000 UNT/ML Injection [Vyvgart Hytrulo] subcutaneousl y 5.6 mL every week VYVGART HYTRULO is for subcutaneous use only and administered with a winged infusion set. Do NOT administer intravenously. The recommended dosage of VYVGART HYTRULO is 1,008 mg / 11,200 units (1,008 mg efgartigimod byron and 11,200 units hyaluronidase) administered subcutaneously over approximately 30 to 90 seconds in cycles of once weekly injections for 4 weeks.Withdraw the entire content of VYVGART HYTRULO from the vial using a polypropylene syringe and an 18G stainless steel transfer needle. To administer VYVGART HYTRULO use a winged infusion set made of polyvinyl chloride(PVC), 25G, 12 inches tubing, maximum priming volume of 0.4 mL. Remove the transfer needle from the syringe and connect the syringe to the winged infusion set.Prior to administration, fill the tubing of the winged infusion set by gently pressing thesyringe plunger until the plunger is at 5.6 mL. There should be solution at the end of thewinged infusion set needle.Choose an injection site on the abdomen (at least 2 to 3 inches away from the navel).Do not inject on areas where the skin is red, bruised, tender, hard, or into areas wherethere are moles or scars.Rotate injection sites for subsequent administrations.Inje ct VYVGART HYTRULO subcutaneously into a pinched skin area at an angle of about45 degrees over 30 to 90 seconds.Localized injection site reactions may occur after VYVGART HYTRULO is administered.Discard any unused portions of medicine remaining in the vial, the syringe and the wingedinfusion set.Healthcare professionals should monitor for clinical signs and symptoms of hypersensitivityreac tions for at least 30 minutes after administration. If a hypersensitivity reaction occurs,the healthcare professional should institute appropriate measures if needed or the patientshould seek medical attention. 09/11 inactive 09/04 5.6 ML efgartigimod byron-qvfc 180 MG/ML / hyaluronidas e-qvfc 2000 UNT/ML Injection [Vyvgart Hytrulo] subcutaneousl y 5.6 mL every week VYVGART HYTRULO is for subcutaneous use only and administered with a winged infusion set. Do NOT administer intravenously. The recommended dosage of VYVGART HYTRULO is 1,008 mg / 11,200 units (1,008 mg efgartigimod byron and 11,200 units hyaluronidase) administered subcutaneously over approximately 30 to 90 seconds in cycles of once weekly injections for 4 weeks.Withdraw the entire content of VYVGART HYTRULO from the vial using a polypropylene syringe and an 18G stainless steel transfer needle. To administer VYVGART HYTRULO use a winged infusion set made of polyvinyl chloride(PVC), 25G, 12 inches tubing, maximum priming volume of 0.4 mL. Remove the transfer needle from the syringe and connect the syringe to the winged infusion set.Prior to administration, fill the tubing of the winged infusion set by gently pressing thesyringe plunger until the plunger is at 5.6 mL. There should be solution at the end of thewinged infusion set needle.Choose an injection site on the abdomen (at least 2 to 3 inches away from the navel).Do not inject on areas where the skin is red, bruised, tender, hard, or into areas wherethere are moles or scars.Rotate injection sites for subsequent administrations.Inje ct VYVGART HYTRULO subcutaneously into a pinched skin area at an angle of about45 degrees over 30 to 90 seconds.Localized injection site reactions may occur after VYVGART HYTRULO is administered.Discard any unused portions of medicine remaining in the vial, the syringe and the wingedinfusion set.Healthcare professionals should monitor for clinical signs and symptoms of hypersensitivityreac tions for at least 30 minutes after administration. If a hypersensitivity reaction occurs,the healthcare professional should institute appropriate measures if needed or the patientshould seek medical attention. 09/04 inactive 08/28 5.6 ML efgartigimod byron-qvfc 180 MG/ML / hyaluronidas e-qvfc 2000 UNT/ML Injection [Vyvgart Hytrulo] subcutaneousl y 5.6 mL every week VYVGART HYTRULO is for subcutaneous use only and administered with a winged infusion set. Do NOT administer intravenously. The recommended dosage of VYVGART HYTRULO is 1,008 mg / 11,200 units (1,008 mg efgartigimod byron and 11,200 units hyaluronidase) administered subcutaneously over approximately 30 to 90 seconds in cycles of once weekly injections for 4 weeks.Withdraw the entire content of VYVGART HYTRULO from the vial using a polypropylene syringe and an 18G stainless steel transfer needle. To administer VYVGART HYTRULO use a winged infusion set made of polyvinyl chloride(PVC), 25G, 12 inches tubing, maximum priming volume of 0.4 mL. Remove the transfer needle from the syringe and connect the syringe to the winged infusion set.Prior to administration, fill the tubing of the winged infusion set by gently pressing thesyringe plunger until the plunger is at 5.6 mL. There should be solution at the end of thewinged infusion set needle.Choose an injection site on the abdomen (at least 2 to 3 inches away from the navel).Do not inject on areas where the skin is red, bruised, tender, hard, or into areas wherethere are moles or scars.Rotate injection sites for subsequent administrations.Inje ct VYVGART HYTRULO subcutaneously into a pinched skin area at an angle of about45 degrees over 30 to 90 seconds.Localized injection site reactions may occur after VYVGART HYTRULO is administered.Discard any unused portions of medicine remaining in the vial, the syringe and the wingedinfusion set.Healthcare professionals should monitor for clinical signs and symptoms of hypersensitivityreac tions for at least 30 minutes after administration. If a hypersensitivity reaction occurs,the healthcare professional should institute appropriate measures if needed or the patientshould seek medical attention. 08/28 inactive 07/22 5.6 ML efgartigimod byron-qvfc 180 MG/ML / hyaluronidas e-qvfc 2000 UNT/ML Injection [Vyvgart Hytrulo] subcutaneousl y 5.6 mL every week VYVGART HYTRULO is for subcutaneous use only and administered with a winged infusion set. Do NOT administer intravenously. The recommended dosage of VYVGART HYTRULO is 1,008 mg / 11,200 units (1,008 mg efgartigimod byron and 11,200 units hyaluronidase) administered subcutaneously over approximately 30 to 90 seconds in cycles of once weekly injections for 4 weeks.Withdraw the entire content of VYVGART HYTRULO from the vial using a polypropylene syringe and an 18G stainless steel transfer needle. To administer VYVGART HYTRULO use a winged infusion set made of polyvinyl chloride(PVC), 25G, 12 inches tubing, maximum priming volume of 0.4 mL. Remove the transfer needle from the syringe and connect the syringe to the winged infusion set.Prior to administration, fill the tubing of the winged infusion set by gently pressing thesyringe plunger until the plunger is at 5.6 mL. There should be solution at the end of thewinged infusion set needle.Choose an injection site on the abdomen (at least 2 to 3 inches away from the navel).Do not inject on areas where the skin is red, bruised, tender, hard, or into areas wherethere are moles or scars.Rotate injection sites for subsequent administrations.Inje ct VYVGART HYTRULO subcutaneously into a pinched skin area at an angle of about45 degrees over 30 to 90 seconds.Localized injection site reactions may occur after VYVGART HYTRULO is administered.Discard any unused portions of medicine remaining in the vial, the syringe and the wingedinfusion set.Healthcare professionals should monitor for clinical signs and symptoms of hypersensitivityreac tions for at least 30 minutes after administration. If a hypersensitivity reaction occurs,the healthcare professional should institute appropriate measures if needed or the patientshould seek medical attention. 07/22 inactive 07/14 5.6 ML efgartigimod byron-qvfc 180 MG/ML / hyaluronidas e-qvfc 2000 UNT/ML Injection [Vyvgart Hytrulo] subcutaneousl y 5.6 mL every week VYVGART HYTRULO is for subcutaneous use only and administered with a winged infusion set. Do NOT administer intravenously. The recommended dosage of VYVGART HYTRULO is 1,008 mg / 11,200 units (1,008 mg efgartigimod byron and 11,200 units hyaluronidase) administered subcutaneously over approximately 30 to 90 seconds in cycles of once weekly injections for 4 weeks.Withdraw the entire content of VYVGART HYTRULO from the vial using a polypropylene syringe and an 18G stainless steel transfer needle. To administer VYVGART HYTRULO use a winged infusion set made of polyvinyl chloride(PVC), 25G, 12 inches tubing, maximum priming volume of 0.4 mL. Remove the transfer needle from the syringe and connect the syringe to the winged infusion set.Prior to administration, fill the tubing of the winged infusion set by gently pressing thesyringe plunger until the plunger is at 5.6 mL. There should be solution at the end of thewinged infusion set needle.Choose an injection site on the abdomen (at least 2 to 3 inches away from the navel).Do not inject on areas where the skin is red, bruised, tender, hard, or into areas wherethere are moles or scars.Rotate injection sites for subsequent administrations.Inje ct VYVGART HYTRULO subcutaneously into a pinched skin area at an angle of about45 degrees over 30 to 90 seconds.Localized injection site reactions may occur after VYVGART HYTRULO is administered.Discard any unused portions of medicine remaining in the vial, the syringe and the wingedinfusion set.Healthcare professionals should monitor for clinical signs and symptoms of hypersensitivityreac tions for at least 30 minutes after administration. If a hypersensitivity reaction occurs,the healthcare professional should institute appropriate measures if needed or the patientshould seek medical attention. 07/14 inactive 07/07 5.6 ML efgartigimod byron-qvfc 180 MG/ML / hyaluronidas e-qvfc 2000 UNT/ML Injection [Vyvgart Hytrulo] subcutaneousl y 5.6 mL every week VYVGART HYTRULO is for subcutaneous use only and administered with a winged infusion set. Do NOT administer intravenously. The recommended dosage of VYVGART HYTRULO is 1,008 mg / 11,200 units (1,008 mg efgartigimod byron and 11,200 units hyaluronidase) administered subcutaneously over approximately 30 to 90 seconds in cycles of once weekly injections for 4 weeks.Withdraw the entire content of VYVGART HYTRULO from the vial using a polypropylene syringe and an 18G stainless steel transfer needle. To administer VYVGART HYTRULO use a winged infusion set made of polyvinyl chloride(PVC), 25G, 12 inches tubing, maximum priming volume of 0.4 mL. Remove the transfer needle from the syringe and connect the syringe to the winged infusion set.Prior to administration, fill the tubing of the winged infusion set by gently pressing thesyringe plunger until the plunger is at 5.6 mL. There should be solution at the end of thewinged infusion set needle.Choose an injection site on the abdomen (at least 2 to 3 inches away from the navel).Do not inject on areas where the skin is red, bruised, tender, hard, or into areas wherethere are moles or scars.Rotate injection sites for subsequent administrations.Inje ct VYVGART HYTRULO subcutaneously into a pinched skin area at an angle of about45 degrees over 30 to 90 seconds.Localized injection site reactions may occur after VYVGART HYTRULO is administered.Discard any unused portions of medicine remaining in the vial, the syringe and the wingedinfusion set.Healthcare professionals should monitor for clinical signs and symptoms of hypersensitivityreac tions for at least 30 minutes after administration. If a hypersensitivity reaction occurs,the healthcare professional should institute appropriate measures if needed or the patientshould seek medical attention. 07/07 inactive 06/26 5.6 ML efgartigimod byron-qvfc 180 MG/ML / hyaluronidas e-qvfc 2000 UNT/ML Injection [Vyvgart Hytrulo] subcutaneousl y 5.6 mL every week VYVGART HYTRULO is for subcutaneous use only and administered with a winged infusion set. Do NOT administer intravenously. The recommended dosage of VYVGART HYTRULO is 1,008 mg / 11,200 units (1,008 mg efgartigimod byron and 11,200 units hyaluronidase) administered subcutaneously over approximately 30 to 90 seconds in cycles of once weekly injections for 4 weeks.Withdraw the entire content of VYVGART HYTRULO from the vial using a polypropylene syringe and an 18G stainless steel transfer needle. To administer VYVGART HYTRULO use a winged infusion set made of polyvinyl chloride(PVC), 25G, 12 inches tubing, maximum priming volume of 0.4 mL. Remove the transfer needle from the syringe and connect the syringe to the winged infusion set.Prior to administration, fill the tubing of the winged infusion set by gently pressing thesyringe plunger until the plunger is at 5.6 mL. There should be solution at the end of thewinged infusion set needle.Choose an injection site on the abdomen (at least 2 to 3 inches away from the navel).Do not inject on areas where the skin is red, bruised, tender, hard, or into areas wherethere are moles or scars.Rotate injection sites for subsequent administrations.Inje ct VYVGART HYTRULO subcutaneously into a pinched skin area at an angle of about45 degrees over 30 to 90 seconds.Localized injection site reactions may occur after VYVGART HYTRULO is administered.Discard any unused portions of medicine remaining in the vial, the syringe and the wingedinfusion set.Healthcare professionals should monitor for clinical signs and symptoms of hypersensitivityreac tions for at least 30 minutes after administration. If a hypersensitivity reaction occurs,the healthcare professional should institute appropriate measures if needed or the patientshould seek medical attention. 06/26 inactive 05/26 5.6 ML efgartigimod byron-qvfc 180 MG/ML / hyaluronidas e-qvfc 2000 UNT/ML Injection [Vyvgart Hytrulo] subcutaneousl y 5.6 mL every week VYVGART HYTRULO is for subcutaneous use only and administered with a winged infusion set. Do NOT administer intravenously. The recommended dosage of VYVGART HYTRULO is 1,008 mg / 11,200 units (1,008 mg efgartigimod byron and 11,200 units hyaluronidase) administered subcutaneously over approximately 30 to 90 seconds in cycles of once weekly injections for 4 weeks.Withdraw the entire content of VYVGART HYTRULO from the vial using a polypropylene syringe and an 18G stainless steel transfer needle. To administer VYVGART HYTRULO use a winged infusion set made of polyvinyl chloride(PVC), 25G, 12 inches tubing, maximum priming volume of 0.4 mL. Remove the transfer needle from the syringe and connect the syringe to the winged infusion set.Prior to administration, fill the tubing of the winged infusion set by gently pressing thesyringe plunger until the plunger is at 5.6 mL. There should be solution at the end of thewinged infusion set needle.Choose an injection site on the abdomen (at least 2 to 3 inches away from the navel).Do not inject on areas where the skin is red, bruised, tender, hard, or into areas wherethere are moles or scars.Rotate injection sites for subsequent administrations.Inje ct VYVGART HYTRULO subcutaneously into a pinched skin area at an angle of about45 degrees over 30 to 90 seconds.Localized injection site reactions may occur after VYVGART HYTRULO is administered.Discard any unused portions of medicine remaining in the vial, the syringe and the wingedinfusion set.Healthcare professionals should monitor for clinical signs and symptoms of hypersensitivityreac tions for at least 30 minutes after administration. If a hypersensitivity reaction occurs,the healthcare professional should institute appropriate measures if needed or the patientshould seek medical attention. 05/26 inactive 05/19 5.6 ML efgartigimod byron-qvfc 180 MG/ML / hyaluronidas e-qvfc 2000 UNT/ML Injection [Vyvgart Hytrulo] subcutaneousl y 5.6 mL every week VYVGART HYTRULO is for subcutaneous use only and administered with a winged infusion set. Do NOT administer intravenously. The recommended dosage of VYVGART HYTRULO is 1,008 mg / 11,200 units (1,008 mg efgartigimod byron and 11,200 units hyaluronidase) administered subcutaneously over approximately 30 to 90 seconds in cycles of once weekly injections for 4 weeks.Withdraw the entire content of VYVGART HYTRULO from the vial using a polypropylene syringe and an 18G stainless steel transfer needle. To administer VYVGART HYTRULO use a winged infusion set made of polyvinyl chloride(PVC), 25G, 12 inches tubing, maximum priming volume of 0.4 mL. Remove the transfer needle from the syringe and connect the syringe to the winged infusion set.Prior to administration, fill the tubing of the winged infusion set by gently pressing thesyringe plunger until the plunger is at 5.6 mL. There should be solution at the end of thewinged infusion set needle.Choose an injection site on the abdomen (at least 2 to 3 inches away from the navel).Do not inject on areas where the skin is red, bruised, tender, hard, or into areas wherethere are moles or scars.Rotate injection sites for subsequent administrations.Inje ct VYVGART HYTRULO subcutaneously into a pinched skin area at an angle of about45 degrees over 30 to 90 seconds.Localized injection site reactions may occur after VYVGART HYTRULO is administered.Discard any unused portions of medicine remaining in the vial, the syringe and the wingedinfusion set.Healthcare professionals should monitor for clinical signs and symptoms of hypersensitivityreac tions for at least 30 minutes after administration. If a hypersensitivity reaction occurs,the healthcare professional should institute appropriate measures if needed or the patientshould seek medical attention. 05/19 inactive 05/12 5.6 ML efgartigimod byron-qvfc 180 MG/ML / hyaluronidas e-qvfc 2000 UNT/ML Injection [Vyvgart Hytrulo] subcutaneousl y 5.6 mL every week VYVGART HYTRULO is for subcutaneous use only and administered with a winged infusion set. Do NOT administer intravenously. The recommended dosage of VYVGART HYTRULO is 1,008 mg / 11,200 units (1,008 mg efgartigimod byron and 11,200 units hyaluronidase) administered subcutaneously over approximately 30 to 90 seconds in cycles of once weekly injections for 4 weeks.Withdraw the entire content of VYVGART HYTRULO from the vial using a polypropylene syringe and an 18G stainless steel transfer needle. To administer VYVGART HYTRULO use a winged infusion set made of polyvinyl chloride(PVC), 25G, 12 inches tubing, maximum priming volume of 0.4 mL. Remove the transfer needle from the syringe and connect the syringe to the winged infusion set.Prior to administration, fill the tubing of the winged infusion set by gently pressing thesyringe plunger until the plunger is at 5.6 mL. There should be solution at the end of thewinged infusion set needle.Choose an injection site on the abdomen (at least 2 to 3 inches away from the navel).Do not inject on areas where the skin is red, bruised, tender, hard, or into areas wherethere are moles or scars.Rotate injection sites for subsequent administrations.Inje ct VYVGART HYTRULO subcutaneously into a pinched skin area at an angle of about45 degrees over 30 to 90 seconds.Localized injection site reactions may occur after VYVGART HYTRULO is administered.Discard any unused portions of medicine remaining in the vial, the syringe and the wingedinfusion set.Healthcare professionals should monitor for clinical signs and symptoms of hypersensitivityreac tions for at least 30 minutes after administration. If a hypersensitivity reaction occurs,the healthcare professional should institute appropriate measures if needed or the patientshould seek medical attention. 05/12 inactive 05/05 5.6 ML efgartigimod byron-qvfc 180 MG/ML / hyaluronidas e-qvfc 2000 UNT/ML Injection [Vyvgart Hytrulo] subcutaneousl y 5.6 mL every week VYVGART HYTRULO is for subcutaneous use only and administered with a winged infusion set. Do NOT administer intravenously. The recommended dosage of VYVGART HYTRULO is 1,008 mg / 11,200 units (1,008 mg efgartigimod byron and 11,200 units hyaluronidase) administered subcutaneously over approximately 30 to 90 seconds in cycles of once weekly injections for 4 weeks.Withdraw the entire content of VYVGART HYTRULO from the vial using a polypropylene syringe and an 18G stainless steel transfer needle. To administer VYVGART HYTRULO use a winged infusion set made of polyvinyl chloride(PVC), 25G, 12 inches tubing, maximum priming volume of 0.4 mL. Remove the transfer needle from the syringe and connect the syringe to the winged infusion set.Prior to administration, fill the tubing of the winged infusion set by gently pressing thesyringe plunger until the plunger is at 5.6 mL. There should be solution at the end of thewinged infusion set needle.Choose an injection site on the abdomen (at least 2 to 3 inches away from the navel).Do not inject on areas where the skin is red, bruised, tender, hard, or into areas wherethere are moles or scars.Rotate injection sites for subsequent administrations.Inje ct VYVGART HYTRULO subcutaneously into a pinched skin area at an angle of about45 degrees over 30 to 90 seconds.Localized injection site reactions may occur after VYVGART HYTRULO is administered.Discard any unused portions of medicine remaining in the vial, the syringe and the wingedinfusion set.Healthcare professionals should monitor for clinical signs and symptoms of hypersensitivityreac tions for at least 30 minutes after administration. If a hypersensitivity reaction occurs,the healthcare professional should institute appropriate measures if needed or the patientshould seek medical attention. 05/05 inactive 04/04 5.6 ML efgartigimod byron-qvfc 180 MG/ML / hyaluronidas e-qvfc 2000 UNT/ML Injection [Vyvgart Hytrulo] subcutaneousl y 5.6 mL every week VYVGART HYTRULO is for subcutaneous use only and administered with a winged infusion set. Do NOT administer intravenously. The recommended dosage of VYVGART HYTRULO is 1,008 mg / 11,200 units (1,008 mg efgartigimod byron and 11,200 units hyaluronidase) administered subcutaneously over approximately 30 to 90 seconds in cycles of once weekly injections for 4 weeks.Withdraw the entire content of VYVGART HYTRULO from the vial using a polypropylene syringe and an 18G stainless steel transfer needle. To administer VYVGART HYTRULO use a winged infusion set made of polyvinyl chloride(PVC), 25G, 12 inches tubing, maximum priming volume of 0.4 mL. Remove the transfer needle from the syringe and connect the syringe to the winged infusion set.Prior to administration, fill the tubing of the winged infusion set by gently pressing thesyringe plunger until the plunger is at 5.6 mL. There should be solution at the end of thewinged infusion set needle.Choose an injection site on the abdomen (at least 2 to 3 inches away from the navel).Do not inject on areas where the skin is red, bruised, tender, hard, or into areas wherethere are moles or scars.Rotate injection sites for subsequent administrations.Inje ct VYVGART HYTRULO subcutaneously into a pinched skin area at an angle of about45 degrees over 30 to 90 seconds.Localized injection site reactions may occur after VYVGART HYTRULO is administered.Discard any unused portions of medicine remaining in the vial, the syringe and the wingedinfusion set.Healthcare professionals should monitor for clinical signs and symptoms of hypersensitivityreac tions for at least 30 minutes after administration. If a hypersensitivity reaction occurs,the healthcare professional should institute appropriate measures if needed or the patientshould seek medical attention. 04/04 inactive 03/28 5.6 ML efgartigimod byron-qvfc 180 MG/ML / hyaluronidas e-qvfc 2000 UNT/ML Injection [Vyvgart Hytrulo] subcutaneousl y 5.6 mL every week VYVGART HYTRULO is for subcutaneous use only and administered with a winged infusion set. Do NOT administer intravenously. The recommended dosage of VYVGART HYTRULO is 1,008 mg / 11,200 units (1,008 mg efgartigimod byron and 11,200 units hyaluronidase) administered subcutaneously over approximately 30 to 90 seconds in cycles of once weekly injections for 4 weeks.Withdraw the entire content of VYVGART HYTRULO from the vial using a polypropylene syringe and an 18G stainless steel transfer needle. To administer VYVGART HYTRULO use a winged infusion set made of polyvinyl chloride(PVC), 25G, 12 inches tubing, maximum priming volume of 0.4 mL. Remove the transfer needle from the syringe and connect the syringe to the winged infusion set.Prior to administration, fill the tubing of the winged infusion set by gently pressing thesyringe plunger until the plunger is at 5.6 mL. There should be solution at the end of thewinged infusion set needle.Choose an injection site on the abdomen (at least 2 to 3 inches away from the navel).Do not inject on areas where the skin is red, bruised, tender, hard, or into areas wherethere are moles or scars.Rotate injection sites for subsequent administrations.Inje ct VYVGART HYTRULO subcutaneously into a pinched skin area at an angle of about45 degrees over 30 to 90 seconds.Localized injection site reactions may occur after VYVGART HYTRULO is administered.Discard any unused portions of medicine remaining in the vial, the syringe and the wingedinfusion set.Healthcare professionals should monitor for clinical signs and symptoms of hypersensitivityreac tions for at least 30 minutes after administration. If a hypersensitivity reaction occurs,the healthcare professional should institute appropriate measures if needed or the patientshould seek medical attention. 03/28 inactive 03/21 5.6 ML efgartigimod byron-qvfc 180 MG/ML / hyaluronidas e-qvfc 2000 UNT/ML Injection [Vyvgart Hytrulo] subcutaneousl y 5.6 mL every week VYVGART HYTRULO is for subcutaneous use only and administered with a winged infusion set. Do NOT administer intravenously. The recommended dosage of VYVGART HYTRULO is 1,008 mg / 11,200 units (1,008 mg efgartigimod byron and 11,200 units hyaluronidase) administered subcutaneously over approximately 30 to 90 seconds in cycles of once weekly injections for 4 weeks.Withdraw the entire content of VYVGART HYTRULO from the vial using a polypropylene syringe and an 18G stainless steel transfer needle. To administer VYVGART HYTRULO use a winged infusion set made of polyvinyl chloride(PVC), 25G, 12 inches tubing, maximum priming volume of 0.4 mL. Remove the transfer needle from the syringe and connect the syringe to the winged infusion set.Prior to administration, fill the tubing of the winged infusion set by gently pressing thesyringe plunger until the plunger is at 5.6 mL. There should be solution at the end of thewinged infusion set needle.Choose an injection site on the abdomen (at least 2 to 3 inches away from the navel).Do not inject on areas where the skin is red, bruised, tender, hard, or into areas wherethere are moles or scars.Rotate injection sites for subsequent administrations.Inje ct VYVGART HYTRULO subcutaneously into a pinched skin area at an angle of about45 degrees over 30 to 90 seconds.Localized injection site reactions may occur after VYVGART HYTRULO is administered.Discard any unused portions of medicine remaining in the vial, the syringe and the wingedinfusion set.Healthcare professionals should monitor for clinical signs and symptoms of hypersensitivityreac tions for at least 30 minutes after administration. If a hypersensitivity reaction occurs,the healthcare professional should institute appropriate measures if needed or the patientshould seek medical attention. 03/21 inactive 03/14 5.6 ML efgartigimod byron-qvfc 180 MG/ML / hyaluronidas e-qvfc 2000 UNT/ML Injection [Vyvgart Hytrulo] subcutaneousl y 5.6 mL every week VYVGART HYTRULO is for subcutaneous use only and administered with a winged infusion set. Do NOT administer intravenously. The recommended dosage of VYVGART HYTRULO is 1,008 mg / 11,200 units (1,008 mg efgartigimod byron and 11,200 units hyaluronidase) administered subcutaneously over approximately 30 to 90 seconds in cycles of once weekly injections for 4 weeks.Withdraw the entire content of VYVGART HYTRULO from the vial using a polypropylene syringe and an 18G stainless steel transfer needle. To administer VYVGART HYTRULO use a winged infusion set made of polyvinyl chloride(PVC), 25G, 12 inches tubing, maximum priming volume of 0.4 mL. Remove the transfer needle from the syringe and connect the syringe to the winged infusion set.Prior to administration, fill the tubing of the winged infusion set by gently pressing thesyringe plunger until the plunger is at 5.6 mL. There should be solution at the end of thewinged infusion set needle.Choose an injection site on the abdomen (at least 2 to 3 inches away from the navel).Do not inject on areas where the skin is red, bruised, tender, hard, or into areas wherethere are moles or scars.Rotate injection sites for subsequent administrations.Inje ct VYVGART HYTRULO subcutaneously into a pinched skin area at an angle of about45 degrees over 30 to 90 seconds.Localized injection site reactions may occur after VYVGART HYTRULO is administered.Discard any unused portions of medicine remaining in the vial, the syringe and the wingedinfusion set.Healthcare professionals should monitor for clinical signs and symptoms of hypersensitivityreac tions for at least 30 minutes after administration. If a hypersensitivity reaction occurs,the healthcare professional should institute appropriate measures if needed or the patientshould seek medical attention. 03/14 inactive Medications Date Name Route Dose Frequency Instructions Start Date End Date Status 03/05 methylprednis olone 2000 MG Injection intravenously 125.0 mg once 2024 active 03/05 hydrocortison e 100 MG Injection intravenously 100.0 mg once 2024 active 03/05 diphenhydrami ne hydrochloride 0.5 MG/ML Injectable Solution intravenously 50.0 mg once 2024 active 03/05 Oxygen inhaled 2.0 L Use as Directed Titrate to keep SPO2 >92% 2024 active 03/05 epinephrine hydrochloride intramuscularl y 0.3 mg once 2024 active 03/05 acetaminophen 325 MG Oral Capsule orally 650.0 mg once 2024 active 03/05 ondansetron hydrochloride intravenously 4.0 mg once 2024 active 03/05 5.6 ML efgartigimod byron-qvfc 180 MG/ML / hyaluronidase -qvfc 2000 UNT/ML Injection [Vyvgart Hytrulo] subcutaneously 5.6 mL every week VYVGART HYTRULO is for subcutaneous use only and administered with a winged infusion set. Do NOT administer intravenously. The recommended dosage of VYVGART HYTRULO is 1,008 mg / 11,200 units (1,008 mg efgartigimod byron and 11,200 units hyaluronidase) administered subcutaneously over approximately 30 to 90 seconds in cycles of once weekly injections for 4 weeks.Withdraw the entire content of VYVGART HYTRULO from the vial using a polypropylene syringe and an 18G stainless steel transfer needle. To administer VYVGART HYTRULO use a winged infusion set made of polyvinyl chloride(PVC), 25G, 12 inches tubing, maximum priming volume of 0.4 mL. Remove the transfer needle from the syringe and connect the syringe to the winged infusion set.Prior to administration, fill the tubing of the winged infusion set by gently pressing thesyringe plunger until the plunger is at 5.6 mL. There should be solution at the end of thewinged infusion set needle.Choose an injection site on the abdomen (at least 2 to 3 inches away from the navel).Do not inject on areas where the skin is red, bruised, tender, hard, or into areas wherethere are moles or scars.Rotate injection sites for subsequent administrations.Inje ct VYVGART HYTRULO subcutaneously into a pinched skin area at an angle of about45 degrees over 30 to 90 seconds.Localized injection site reactions may occur after VYVGART HYTRULO is administered.Discard any unused portions of medicine remaining in the vial, the syringe and the wingedinfusion set.Healthcare professionals should monitor for clinical signs and symptoms of hypersensitivityreac tions for at least 30 minutes after administration. If a hypersensitivity reaction occurs,the healthcare professional should institute appropriate measures if needed or the patientshould seek medical attention. 2024 active 02/26 acetaminophen 325 MG Oral Capsule orally 650.0 mg once 2024 active 02/26 methylprednis olone 2000 MG Injection intravenously 125.0 mg once 2024 active 02/26 5.6 ML efgartigimod byron-qvfc 180 MG/ML / hyaluronidase -qvfc 2000 UNT/ML Injection [Vyvgart Hytrulo] subcutaneously 5.6 mL every week VYVGART HYTRULO is for subcutaneous use only and administered with a winged infusion set. Do NOT administer intravenously. The recommended dosage of VYVGART HYTRULO is 1,008 mg / 11,200 units (1,008 mg efgartigimod byron and 11,200 units hyaluronidase) administered subcutaneously over approximately 30 to 90 seconds in cycles of once weekly injections for 4 weeks.Withdraw the entire content of VYVGART HYTRULO from the vial using a polypropylene syringe and an 18G stainless steel transfer needle. To administer VYVGART HYTRULO use a winged infusion set made of polyvinyl chloride(PVC), 25G, 12 inches tubing, maximum priming volume of 0.4 mL. Remove the transfer needle from the syringe and connect the syringe to the winged infusion set.Prior to administration, fill the tubing of the winged infusion set by gently pressing thesyringe plunger until the plunger is at 5.6 mL. There should be solution at the end of thewinged infusion set needle.Choose an injection site on the abdomen (at least 2 to 3 inches away from the navel).Do not inject on areas where the skin is red, bruised, tender, hard, or into areas wherethere are moles or scars.Rotate injection sites for subsequent administrations.Inje ct VYVGART HYTRULO subcutaneously into a pinched skin area at an angle of about45 degrees over 30 to 90 seconds.Localized injection site reactions may occur after VYVGART HYTRULO is administered.Discard any unused portions of medicine remaining in the vial, the syringe and the wingedinfusion set.Healthcare professionals should monitor for clinical signs and symptoms of hypersensitivityreac tions for at least 30 minutes after administration. If a hypersensitivity reaction occurs,the healthcare professional should institute appropriate measures if needed or the patientshould seek medical attention. 2024 active 02/26 ondansetron hydrochloride intravenously 4.0 mg once 2024 active 02/26 epinephrine hydrochloride intramuscularl y 0.3 mg once 2024 active 02/26 Oxygen inhaled 2.0 L Use as Directed Titrate to keep SPO2 >92% 2024 active 02/26 hydrocortison e 100 MG Injection intravenously 100.0 mg once 2024 active 02/26 diphenhydrami ne hydrochloride 0.5 MG/ML Injectable Solution intravenously 50.0 mg once 2024 active 02/19 hydrocortison e 100 MG Injection intravenously 100.0 mg once 2024 active 02/19 methylprednis olone 2000 MG Injection intravenously 125.0 mg once 2024 active 02/19 epinephrine hydrochloride intramuscularl y 0.3 mg once 2024 active 02/19 diphenhydrami ne hydrochloride 0.5 MG/ML Injectable Solution intravenously 50.0 mg once 2024 active 02/19 ondansetron hydrochloride intravenously 4.0 mg once 2024 active 02/19 acetaminophen 325 MG Oral Capsule orally 650.0 mg once 2024 active 02/19 Oxygen inhaled 2.0 L Use as Directed Titrate to keep SPO2 >92% 2024 active 02/12 ondansetron hydrochloride intravenously 4.0 mg once 2024 active 02/12 methylprednis olone 2000 MG Injection intravenously 125.0 mg once 2024 active 02/12 acetaminophen 325 MG Oral Capsule orally 650.0 mg once 2024 active 02/12 hydrocortison e 100 MG Injection intravenously 100.0 mg once 2024 active 02/12 Oxygen inhaled 2.0 L Use as Directed Titrate to keep SPO2 >92% 2024 active 02/12 diphenhydrami ne hydrochloride 0.5 MG/ML Injectable Solution intravenously 50.0 mg once 2024 active 02/12 epinephrine hydrochloride intramuscularl y 0.3 mg once 2024 active 01/08 hydrocortison e 100 MG Injection intravenously 100.0 mg once 2024 active 01/08 Oxygen inhaled 2.0 L Use as Directed Titrate to keep SPO2 >92% 2024 active 01/08 acetaminophen 325 MG Oral Capsule orally 650.0 mg once 2024 active 01/08 diphenhydrami ne hydrochloride 0.5 MG/ML Injectable Solution intravenously 50.0 mg once 2024 active 01/08 ondansetron hydrochloride intravenously 4.0 mg once 2024 active 01/08 methylprednis olone 2000 MG Injection intravenously 125.0 mg once 2024 active 01/08 epinephrine hydrochloride intramuscularl y 0.3 mg once 2024 active 01/01 acetaminophen 325 MG Oral Capsule orally 650.0 mg once 2024 active 01/01 Oxygen inhaled 2.0 L Use as Directed Titrate to keep SPO2 >92% 2024 active 01/01 epinephrine hydrochloride intramuscularl y 0.3 mg once 2024 active 01/01 hydrocortison e 100 MG Injection intravenously 100.0 mg once 2024 active 01/01 ondansetron hydrochloride intravenously 4.0 mg once 2024 active 01/01 diphenhydrami ne hydrochloride 0.5 MG/ML Injectable Solution intravenously 50.0 mg once 2024 active 01/01 methylprednis olone 2000 MG Injection intravenously 125.0 mg once 2024 active 12/25 hydrocortison e 100 MG Injection intravenously 100.0 mg once 2024 active 12/25 ondansetron hydrochloride intravenously 4.0 mg once 2024 active 12/25 methylprednis olone 2000 MG Injection intravenously 125.0 mg once 2024 active 12/25 acetaminophen 325 MG Oral Capsule orally 650.0 mg once 2024 active 12/25 Oxygen inhaled 2.0 L Use as Directed Titrate to keep SPO2 >92% 2024 active 12/25 diphenhydrami ne hydrochloride 0.5 MG/ML Injectable Solution intravenously 50.0 mg once 2024 active 12/25 epinephrine hydrochloride intramuscularl y 0.3 mg once 2024 active 12/18 acetaminophen 325 MG Oral Capsule orally 650.0 mg once 2024 active 12/18 epinephrine hydrochloride intramuscularl y 0.3 mg once 2024 active 12/18 diphenhydrami ne hydrochloride 0.5 MG/ML Injectable Solution intravenously 50.0 mg once 2024 active 12/18 methylprednis olone 2000 MG Injection intravenously 125.0 mg once 2024 active 12/18 hydrocortison e 100 MG Injection intravenously 100.0 mg once 2024 active 12/18 ondansetron hydrochloride intravenously 4.0 mg once 2024 active 12/18 Oxygen inhaled 2.0 L Use as Directed Titrate to keep SPO2 >92% 2024 active 11/13 diphenhydrami ne hydrochloride 0.5 MG/ML Injectable Solution intravenously 50.0 mg once 2024 active 11/13 hydrocortison e 100 MG Injection intravenously 100.0 mg once 2024 active 11/13 epinephrine hydrochloride intramuscularl y 0.3 mg once 2024 active 11/13 ondansetron hydrochloride intravenously 4.0 mg once 2024 active 11/13 Oxygen inhaled 2.0 L Use as Directed Titrate to keep SPO2 >92% 2024 active 11/13 methylprednis olone 2000 MG Injection intravenously 125.0 mg once 2024 active 11/13 acetaminophen 325 MG Oral Capsule orally 650.0 mg once 2024 active 11/06 ondansetron hydrochloride intravenously 4.0 mg once 2023 active 11/06 methylprednis olone 2000 MG Injection intravenously 125.0 mg once 2023 active 11/06 epinephrine hydrochloride intramuscularl y 0.3 mg once 2023 active 11/06 acetaminophen 325 MG Oral Capsule orally 650.0 mg once 2023 active 11/06 hydrocortison e 100 MG Injection intravenously 100.0 mg once 2023 active 11/06 Oxygen inhaled 2.0 L Use as Directed Titrate to keep SPO2 >92% 2023 active 11/06 diphenhydrami ne hydrochloride 0.5 MG/ML Injectable Solution intravenously 50.0 mg once 2023 active 10/30 hydrocortison e 100 MG Injection intravenously 100.0 mg once 2023 active 10/30 epinephrine hydrochloride intramuscularl y 0.3 mg once 2023 active 10/30 acetaminophen 325 MG Oral Capsule orally 650.0 mg once 2023 active 10/30 Oxygen inhaled 2.0 L Use as Directed Titrate to keep SPO2 >92% 2023 active 10/30 ondansetron hydrochloride intravenously 4.0 mg once 2023 active 10/30 diphenhydrami ne hydrochloride 0.5 MG/ML Injectable Solution intravenously 50.0 mg once 2023 active 10/30 methylprednis olone 2000 MG Injection intravenously 125.0 mg once 2023 active 10/23 ondansetron hydrochloride intravenously 4.0 mg once 2023 active 10/23 hydrocortison e 100 MG Injection intravenously 100.0 mg once 2023 active 10/23 diphenhydrami ne hydrochloride 0.5 MG/ML Injectable Solution intravenously 50.0 mg once 2023 active 10/23 acetaminophen 325 MG Oral Capsule orally 650.0 mg once 2023 active 10/23 epinephrine hydrochloride intramuscularl y 0.3 mg once 2023 active 10/23 Oxygen inhaled 2.0 L Use as Directed Titrate to keep SPO2 >92% 2023 active 10/23 methylprednis olone 2000 MG Injection intravenously 125.0 mg once 2023 active 09/18 acetaminophen 325 MG Oral Capsule orally 650.0 mg once 2023 active 09/18 Oxygen inhaled 2.0 L Use as Directed Titrate to keep SPO2 >92% 2023 active 09/18 ondansetron hydrochloride intravenously 4.0 mg once 2023 active 09/18 hydrocortison e 100 MG Injection intravenously 100.0 mg once 2023 active 09/18 methylprednis olone 2000 MG Injection intravenously 125.0 mg once 2023 active 09/18 diphenhydrami ne hydrochloride 0.5 MG/ML Injectable Solution intravenously 50.0 mg once 2023 active 09/18 epinephrine hydrochloride intramuscularl y 0.3 mg once 2023 active 09/11 ondansetron hydrochloride intravenously 4.0 mg once 2023 active 09/11 diphenhydrami ne hydrochloride 0.5 MG/ML Injectable Solution intravenously 50.0 mg once 2023 active 09/11 Oxygen inhaled 2.0 L Use as Directed Titrate to keep SPO2 >92% 2023 active 09/11 methylprednis olone 2000 MG Injection intravenously 125.0 mg once 2023 active 09/11 acetaminophen 325 MG Oral Capsule orally 650.0 mg once 2023 active 09/11 hydrocortison e 100 MG Injection intravenously 100.0 mg once 2023 active 09/11 epinephrine hydrochloride intramuscularl y 0.3 mg once 2023 active 09/04 methylprednis olone 2000 MG Injection intravenously 125.0 mg once 2023 active 09/04 hydrocortison e 100 MG Injection intravenously 100.0 mg once 2023 active 09/04 ondansetron hydrochloride intravenously 4.0 mg once 2023 active 09/04 diphenhydrami ne hydrochloride 0.5 MG/ML Injectable Solution intravenously 50.0 mg once 2023 active 09/04 epinephrine hydrochloride intramuscularl y 0.3 mg once 2023 active 09/04 acetaminophen 325 MG Oral Capsule orally 650.0 mg once 2023 active 09/04 Oxygen inhaled 2.0 L Use as Directed Titrate to keep SPO2 >92% 2023 active 08/28 hydrocortison e 100 MG Injection intravenously 100.0 mg once 2023 active 08/28 ondansetron hydrochloride intravenously 4.0 mg once 2023 active 08/28 acetaminophen 325 MG Oral Capsule orally 650.0 mg once 2023 active 08/28 diphenhydrami ne hydrochloride 0.5 MG/ML Injectable Solution intravenously 50.0 mg once 2023 active 08/28 epinephrine hydrochloride intramuscularl y 0.3 mg once 2023 active 08/28 methylprednis olone 2000 MG Injection intravenously 125.0 mg once 2023 active 08/28 Oxygen inhaled 2.0 L Use as Directed Titrate to keep SPO2 >92% 2023 active 07/22 hydrocortison e 100 MG Injection intravenously 100.0 mg once 2023 active 07/22 acetaminophen 325 MG Oral Capsule orally 650.0 mg once 2023 active 07/22 methylprednis olone 2000 MG Injection intravenously 125.0 mg once 2023 active 07/22 ondansetron hydrochloride intravenously 4.0 mg once 2023 active 07/22 Oxygen inhaled 2.0 L Use as Directed Titrate to keep SPO2 >92% 2023 active 07/22 epinephrine hydrochloride intramuscularl y 0.3 mg once 2023 active 07/22 diphenhydrami ne hydrochloride 0.5 MG/ML Injectable Solution intravenously 50.0 mg once 2023 active 07/14 epinephrine hydrochloride intramuscularl y 0.3 mg once 2023 active 07/14 diphenhydrami ne hydrochloride 0.5 MG/ML Injectable Solution intravenously 50.0 mg once 2023 active 07/14 ondansetron hydrochloride intravenously 4.0 mg once 2023 active 07/14 methylprednis olone 2000 MG Injection intravenously 125.0 mg once 2023 active 07/14 hydrocortison e 100 MG Injection intravenously 100.0 mg once 2023 active 07/14 acetaminophen 325 MG Oral Capsule orally 650.0 mg once 2023 active 07/14 Oxygen inhaled 2.0 L Use as Directed Titrate to keep SPO2 >92% 2023 active 07/07 diphenhydrami ne hydrochloride 0.5 MG/ML Injectable Solution intravenously 50.0 mg once 2023 active 07/07 acetaminophen 325 MG Oral Capsule orally 650.0 mg once 2023 active 07/07 methylprednis olone 2000 MG Injection intravenously 125.0 mg once 2023 active 07/07 ondansetron hydrochloride intravenously 4.0 mg once 2023 active 07/07 Oxygen inhaled 2.0 L Use as Directed Titrate to keep SPO2 >92% 2023 active 07/07 epinephrine hydrochloride intramuscularl y 0.3 mg once 2023 active 07/07 hydrocortison e 100 MG Injection intravenously 100.0 mg once 2023 active 06/26 hydrocortison e 100 MG Injection intravenously 100.0 mg once 2023 active 06/26 Oxygen inhaled 2.0 L Use as Directed Titrate to keep SPO2 >92% 2023 active 06/26 methylprednis olone 2000 MG Injection intravenously 125.0 mg once 2023 active 06/26 ondansetron hydrochloride intravenously 4.0 mg once 2023 active 06/26 diphenhydrami ne hydrochloride 0.5 MG/ML Injectable Solution intravenously 50.0 mg once 2023 active 06/26 epinephrine hydrochloride intramuscularl y 0.3 mg once 2023 active 06/26 acetaminophen 325 MG Oral Capsule orally 650.0 mg once 2023 active 05/26 methylprednis olone 2000 MG Injection intravenously 125.0 mg once 2023 active 05/26 Oxygen inhaled 2.0 L Use as Directed Titrate to keep SPO2 >92% 2023 active 05/26 diphenhydrami ne hydrochloride 0.5 MG/ML Injectable Solution intravenously 50.0 mg once 2023 active 05/26 ondansetron hydrochloride intravenously 4.0 mg once 2023 active 05/26 hydrocortison e 100 MG Injection intravenously 100.0 mg once 2023 active 05/26 acetaminophen 325 MG Oral Capsule orally 650.0 mg once 2023 active 05/26 epinephrine hydrochloride intramuscularl y 0.3 mg once 2023 active 05/19 acetaminophen 325 MG Oral Capsule orally 650.0 mg once 2023 active 05/19 epinephrine hydrochloride intramuscularl y 0.3 mg once 2023 active 05/19 diphenhydrami ne hydrochloride 0.5 MG/ML Injectable Solution intravenously 50.0 mg once 2023 active 05/19 hydrocortison e 100 MG Injection intravenously 100.0 mg once 2023 active 05/19 methylprednis olone 2000 MG Injection intravenously 125.0 mg once 2023 active 05/19 ondansetron hydrochloride intravenously 4.0 mg once 2023 active 05/19 Oxygen inhaled 2.0 L Use as Directed Titrate to keep SPO2 >92% 2023 active 05/12 ondansetron hydrochloride intravenously 4.0 mg once 2023 active 05/12 Oxygen inhaled 2.0 L Use as Directed Titrate to keep SPO2 >92% 2023 active 05/12 acetaminophen 325 MG Oral Capsule orally 650.0 mg once 2023 active 05/12 hydrocortison e 100 MG Injection intravenously 100.0 mg once 2023 active 05/12 epinephrine hydrochloride intramuscularl y 0.3 mg once 2023 active 05/12 methylprednis olone 2000 MG Injection intravenously 125.0 mg once 2023 active 05/12 diphenhydrami ne hydrochloride 0.5 MG/ML Injectable Solution intravenously 50.0 mg once 2023 active 05/05 Oxygen inhaled 2.0 L Use as Directed Titrate to keep SPO2 >92% 2023 active 05/05 hydrocortison e 100 MG Injection intravenously 100.0 mg once 2023 active 05/05 diphenhydrami ne hydrochloride 0.5 MG/ML Injectable Solution intravenously 50.0 mg once 2023 active 05/05 ondansetron hydrochloride intravenously 4.0 mg once 2023 active 05/05 methylprednis olone 2000 MG Injection intravenously 125.0 mg once 2023 active 05/05 acetaminophen 325 MG Oral Capsule orally 650.0 mg once 2023 active 05/05 epinephrine hydrochloride intramuscularl y 0.3 mg once 2023 active 04/04 epinephrine hydrochloride intramuscularl y 0.3 mg once 2023 active 04/04 diphenhydrami ne hydrochloride 0.5 MG/ML Injectable Solution intravenously 50.0 mg once 2023 active 04/04 methylprednis olone 2000 MG Injection intravenously 125.0 mg once 2023 active 04/04 Oxygen inhaled 2.0 L Use as Directed Titrate to keep SPO2 >92% 2023 active 04/04 hydrocortison e 100 MG Injection intravenously 100.0 mg once 2023 active 04/04 acetaminophen 325 MG Oral Capsule orally 650.0 mg once 2023 active 04/04 ondansetron hydrochloride intravenously 4.0 mg once 2023 active 03/28 methylprednis olone 2000 MG Injection intravenously 125.0 mg once 2023 active 03/28 acetaminophen 325 MG Oral Capsule orally 650.0 mg once 2023 active 03/28 diphenhydrami ne hydrochloride 0.5 MG/ML Injectable Solution intravenously 50.0 mg once 2023 active 03/28 hydrocortison e 100 MG Injection intravenously 100.0 mg once 2023 active 03/28 epinephrine hydrochloride intramuscularl y 0.3 mg once 2023 active 03/28 ondansetron hydrochloride intravenously 4.0 mg once 2023 active 03/28 Oxygen inhaled 2.0 L Use as Directed Titrate to keep SPO2 >92% 2023 active 03/21 acetaminophen 325 MG Oral Capsule orally 650.0 mg once 2023 active 03/21 diphenhydrami ne hydrochloride 0.5 MG/ML Injectable Solution intravenously 50.0 mg once 2023 active 03/21 ondansetron hydrochloride intravenously 4.0 mg once 2023 active 03/21 methylprednis olone 2000 MG Injection intravenously 125.0 mg once 2023 active 03/21 Oxygen inhaled 2.0 L Use as Directed Titrate to keep SPO2 >92% 2023 active 03/21 epinephrine hydrochloride intramuscularl y 0.3 mg once 2023 active 03/21 hydrocortison e 100 MG Injection intravenously 100.0 mg once 2023 active 03/14 epinephrine hydrochloride intramuscularl y 0.3 mg once 2023 active 03/14 hydrocortison e 100 MG Injection intravenously 100.0 mg once 2023 active 03/14 methylprednis olone 2000 MG Injection intravenously 125.0 mg once 2023 active 03/14 Oxygen inhaled 2.0 L Use as Directed Titrate to keep SPO2 >92% 2023 active 03/14 ondansetron hydrochloride intravenously 4.0 mg once 2023 active 03/14 diphenhydrami ne hydrochloride 0.5 MG/ML Injectable Solution intravenously 50.0 mg once 2023 active 03/14 acetaminophen 325 MG Oral Capsule orally 650.0 mg once 2023 active Problems Diagnosis Status Date of Diagnosi s Myasthenia gravis without exacerbation (disorder ) Active Social History Date Name Value Sex Male Vital Signs Date Type Value 11/13/2024 Pain Scale 0.00
--- OUTSIDE RECORDS SUMMARY | 2025-02-26 14:02 | XMS_ITS | Encounter Summary ---
Author Organization [facility] Address [address] [place] [address] Care Team Providers Care Wind Development Director Name Role Phone Hugh Beltrán MD Primary Care Provider [phone] Encounter Details Date Type Department Care Team (Late st Contact Info) Description 11/21/2017 myChart Message [facility] [address] [place], [place] [phone] Mary Salazar, DO [address] [place] [address] RE: Visit Follow-Up Question Social History Tobacco [...] on filedocumented in this encounter Care Teams Wind Development Director Relationship Specialty Start Date End Date Hugh Beltrán MD PCP - General 08/09/17 documented as of this encounter
--- OUTSIDE RECORDS SUMMARY | 2025-02-26 14:02 | XMS_ITS | Encounter Summary ---
Author Organization [facility] Address [address] [place] [address] Care Team Providers Care Business Excellence Manager Name Role Phone AmirahabilioTracykoki Primary Care Provider [phone] Encounter Details Date Type Department Care Team (Late Contact Info) Description 02/19/2025 Orders Only [facility] [address] [place] [address] Rebecca Grover MD [address] [place], [place] [id number] Social History Tobacco Use Types Packs/Day Years [...] [place] [facility] [address] [place] [address] Rebecca Grover MD [address] [place], [place] [phone] documented as of this encounter Visit Diagnoses Not on filedocumented in this encounter Care Teams Business Excellence Manager Relationship Specialty Start Date End Date Aamir Mauricio [address] [place] [address] PCP - General 01/01/24 documented as of this encounter
--- OUTSIDE RECORDS SUMMARY | 2025-02-26 14:02 | XMS_ITS | Encounter Summary ---
Author Organization [facility] Address [address] [place] [address] Care Team Providers Care Motorized Squad Commanding Officer Name Role Phone Hugh Beltrán MD Primary Care Provider [phone] Encounter Details Date Type Department Care Team (Late st Contact Info) Description 11/03/2017 myChart Message [facility] Primary Care [address] [place] [phone] Hugh Beltrán MD [address] [place] [address] RE: Prescription Question Social History Tobacco Use [...] on filedocumented in this encounter Care Teams Motorized Squad Commanding Officer Relationship Specialty Start Date End Date Hugh Beltrán MD PCP - General 08/09/17 documented as of this encounter
--- OUTSIDE RECORDS SUMMARY | 2025-02-26 14:02 | XMS_ITS | Encounter Summary ---
Author Organization [facility] Address [address] [place] [address] Care Team Providers Care Outside Plant Field Engineer Name Role Phone Hugh Beltrán MD Primary Care Provider [phone] Encounter Details Date Type Department Care Team (Late st Contact Info) Description 03/03/2018 myChart Message [facility] Primary Care [address] [place] [address] Hugh Beltrán MD [address] [place] [address] RE: Visit Follow-Up Question Social History Tobacco [...] on filedocumented in this encounter Care Teams Outside Plant Field Engineer Relationship Specialty Start Date End Date Hugh Beltrán MD PCP - General 08/09/17 documented as of this encounter
--- OUTSIDE RECORDS SUMMARY | 2025-02-26 14:02 | XMS_ITS | Referral Summary ---
Author Organization [facility] Address [address] [place] [address] Care Team Providers Care Honey Grader And Blender Name Role Phone Hugh Beltrán MD Primary Care Provider [phone] Allergies Active Allergy Reactions Criticality Noted Date [...] (08/15/2018): Added automatically from request for surgery [id number] Other computer terminal operator (current) drug therapy 8 Assessment & [...] (08/13/2018): Added automatically from request for surgery [id number] Decreased hearing of both ears 07/03/2018 Assessment [...] become intrusive. 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 At the [facility], he was hypotensive in the 90s-100s over [...] should rebleed he should present himself to [facility] instead of [facility] in order to have his scopes done more expeditiously. Furthermore, his hemoglobin has stabilized around 8.5. PLAN: - Gastroenterology consult, appreciate recommendations. - Regular diet - Discontinue IV fluids - A.m. CBC -IV Protonix 40 mg twice daily Assessment & Plan (08/21/2018 7:48 AM EDT): 08/21/2018 Favian has a history of gastric bypass surgery and was admitted to [facility] 08/12-08/15 in the setting of melena and [...] gastric bypass surgery and was admitted to [facility] in the setting of melena and rectal [...] gastric bypass surgery and was admitted to [facility] in the setting of melena and rectal [...] stools multiple times per day. At the [facility] he was hypotensive in the 90s-100s over [...] to improve, he will follow-up as needed. 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 Procedure Name Priority Date/Time Associated Diagnosis Comments COMPREHENSIVE METABOLIC PANEL Routine 03/07/2021 12:28 PM EDT Myasthenia gravis COLONOSCOPY 11/20/2018 from Last 3 Months or Most Recently Relevant to Health Maintenance Results * Due to [place] WAVE ([employer]) law, this organization might not be sharing negative HIV tests. * (ABNORMAL) Comprehensive Metabolic Panel (03/07/2021 12:28 PM EDT) NA 141 135 - 145 mmol/L 03/07/2021 8:28 PM EDT [email or web address] K 4.1 3.5 - 5.3 mmol/L 03/07/2021 8:28 PM EDT [email or web address] Cl 109 97 - 110 mmol/L 03/07/2021 8:28 PM EDT [email or web address] CO2 24 24 - 32 mmol/L 03/07/2021 8:28 PM EDT [facility] Anion Gap 8 5 - 15 03/07/2021 8:28 PM EDT [facility] Glucose 97 70 - 99 mg/dL 03/07/2021 8:28 PM EDT [facility] Creatinine 1.01 0.60 - 1.30 mg/dL 03/07/2021 8:28 PM EDT [email or web address] eGFR Non- 74(L) >=90 mL/min/BS A 03/07/2021 8:28 PM EDT [email or web address] eGFR 86(L) >=90 mL/min/BS A 03/07/2021 8:28 PM EDT [email or web address] Comment: Units = mL/min/1.73 [...] - 10.7 mg/dL 03/07/2021 8:28 PM EDT [email or web address] Total Protein 6.6 6.0 - 8.0 g/dL 03/07/2021 8:28 PM EDT [email or web address] Albumin 4.3 3.5 - 4.8 g/dL 03/07/2021 8:28 PM EDT [facility] Bilirubin, Total 1.1 0.3 - 1.2 mg/dL 03/07/2021 8:28 PM EDT [facility] Alkaline Phosphatase 56 30 - 115 U/L 03/07/2021 8:28 PM EDT [facility] AST 27 10 - 40 U/L 03/07/2021 8:28 PM EDT [facility] ALT 13 10 - 40 U/L 03/07/2021 8:28 PM EDT [email or web address] BUN 18 7 - 23 mg/dL 03/07/2021 8:28 PM EDT [facility] Blood Structure of peripheral vein / Unknown Venipuncture / Unknown 03/07/2021 12:28 PM EDT 03/07/2021 12:28 PM EDT us Marygosia Salazar DO LAB BLOOD ORDERABLES Final Result [facility] [address] [place] [address], * COLONOSCOPY (11/20/2018) Narrative Procedure Note Jacob Khan MD PhD - 11/20/2018 8:01 AM EST Gastroenterology Patient Name: Favian [place] Procedure Date: 11/20/2018 8:01 AM Date of [...] by the physician,the nurse, the anesthesiologist, the insurance salesperson and the hvac installation technician in the pre-procedure area in the [...] and oxygen saturations were monitored continuously. The CF-TD344C [id number] was introduced through the anus and advanced [...] was done by the physician, nurse and hvac installation technician using the patient's name and date. [...] Documents on File Type Date Recorded Patient Web Architect Expl anation Health Care Proxy 03/03/2011 12:00 AM 10/12 Health Care Proxy 06/08/2009 12:00 AM 05/12 * Full Code (Latest Code Status on File) Date Activated Date Inactivated Comments 08/19/2018 9:16 PM 08/23/2018 12:24 PM * Full Code Date Activated Date Inactivated Comments 08/12/2018 10:16 PM 08/15/2018 1:11 PM Care Teams Honey Grader And Blender Relationship Specialty Start Date End Date Hugh Beltrán MD PCP - General 08/09/17
--- OUTSIDE RECORDS SUMMARY | 2025-02-26 14:02 | XMS_ITS | Clinical Summary ---
Author Organization [facility] Address [address] [place] [address] Care Team Providers Care Crew Attendant Name Role Phone Hugh Beltrán MD Primary Care Provider [phone] Allergies Active Allergy Reactions Criticality Noted Date [...] (08/15/2018): Added automatically from request for surgery [id number] Other terminal make up operator (current) drug therapy 8 Assessment & [...] (08/13/2018): Added automatically from request for surgery [id number] Decreased hearing of both ears 07/03/2018 Assessment [...] intrusive. 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 At the [facility], he was hypotensive in the 90s-100s over [...] should rebleed he should present himself to [facility] instead of [facility] in order to have his scopes done more expeditiously. Furthermore, his hemoglobin has stabilized around 8.5. PLAN: - Gastroenterology consult, appreciate recommendations. - Regular diet - Discontinue IV fluids - A.m. CBC -IV Protonix 40 mg twice daily Assessment & Plan (08/21/2018 7:48 AM EDT): 08/21/2018 Favian has a history of gastric bypass surgery and was admitted to [facility] 08/12-08/15 in the setting of melena and [...] multiple times per day. At the [facility] he was hypotensive in the 90s-100s over [...] gastric bypass surgery and was admitted to [facility] in the setting of melena and rectal [...] multiple times per day. At the [facility] he was hypotensive in the 90s-100s over [...] gastric bypass surgery and was admitted to [facility] in the setting of melena and rectal [...] stools multiple times per day. At the [facility] he was hypotensive in the 90s-100s over [...] to improve, he will follow-up as needed. Guillain-[place] syndrome 05/21/200912/2017 Sleep apnea 05/21/2009 08/12/2018 Urticaria [...] complete this topic Procedures * Due to [place] [employer] law, this organization might not be sharing negative HIV tests. Procedure Name Priority Date/Time Associated Diagnosis Comments COMPREHENSIVE METABOLIC PANEL Routine 03/07/2021 12:28 PM EDT Myasthenia gravis COLONOSCOPY 11/20/2018 from Last 3 Months or Most Recently Relevant to Health Maintenance Results * Due to [place] [employer] law, this organization might not be sharing negative HIV tests. * (ABNORMAL) Comprehensive Metabolic Panel (03/07/2021 12:28 PM EDT) NA 141 135 - 145 mmol/L 03/07/2021 8:28 PM EDT [facility] K 4.1 3.5 - 5.3 mmol/L 03/07/2021 8:28 PM EDT [facility] Cl 109 97 - 110 mmol/L 03/07/2021 8:28 PM EDT [facility] CO2 24 24 - 32 mmol/L 03/07/2021 8:28 PM EDT [facility] Anion Gap 8 5 - 15 03/07/2021 8:28 PM EDT [facility] Glucose 97 70 - 99 mg/dL 03/07/2021 8:28 PM EDT [facility] Creatinine 1.01 0.60 - 1.30 mg/dL 03/07/2021 8:28 PM EDT [facility] eGFR Non- 74(L) >=90 mL/min/BS A 03/07/2021 8:28 PM EDT [facility] eGFR 86(L) >=90 mL/min/BS A 03/07/2021 8:28 PM EDT [facility] Comment: Units = mL/min/1.73 [...] - 10.7 mg/dL 03/07/2021 8:28 PM EDT [facility] Total Protein 6.6 6.0 - 8.0 g/dL 03/07/2021 8:28 PM EDT [facility] Albumin 4.3 3.5 - 4.8 g/dL 03/07/2021 8:28 PM EDT [facility] Bilirubin, Total 1.1 0.3 - 1.2 mg/dL 03/07/2021 8:28 PM EDT [facility] Alkaline Phosphatase 56 30 - 115 U/L 03/07/2021 8:28 PM EDT [facility] AST 27 10 - 40 U/L 03/07/2021 8:28 PM EDT [facility] ALT 13 10 - 40 U/L 03/07/2021 8:28 PM EDT [facility] BUN 18 7 - 23 mg/dL 03/07/2021 8:28 PM EDT [facility] Blood Structure of peripheral vein / Unknown Venipuncture / Unknown 03/07/2021 12:28 PM EDT 03/07/2021 12:28 PM EDT Mary Salazar DO LAB BLOOD ORDERABLES Final Result [facility] [address] [place] [address], [place] * COLONOSCOPY (11/20/2018) Narrative Procedure Note Jacob Khan MD PhD - 11/20/2018 8:01 AM EST Gastroenterology Patient Name: Ballester[place] Rf Microwave Engineer Procedure Date: 11/20/2018 8:01 AM Date of [...] by the physician,the nurse, the anesthesiologist, the customer engagement analyst and the clinical dental technician in the pre-procedure area in the [...] and oxygen saturations were monitored continuously. The CF-[id number] was introduced through the anus and advanced [...] was done by the physician, nurse and clinical dental technician using the patient's name and date. [...] Documents on File Type Date Recorded Patient Vehicle Leasing And Rental Manager Expl anation Health Care Proxy 03/03/2011 12:00 AM 10/12 Health Care Proxy 06/08/2009 12:00 AM 05/12 * Full Code (Latest Code Status on File) Date Activated Date Inactivated Comments 08/19/2018 9:16 PM 08/23/2018 12:24 PM * Full Code Date Activated Date Inactivated Comments 08/12/2018 10:16 PM 08/15/2018 1:11 PM Care Teams Crew Attendant Relationship Specialty Start Date End Date Hugh Beltrán MD PCP - General 08/09/17
--- OUTSIDE RECORDS SUMMARY | 2025-02-26 14:02 | XMS_ITS | Clinical Summary ---
Author Organization [facility] Address [address] [place] [address] Care Team Providers Care Early Learning Teacher Name Role Phone Aamir Mauricio Primary Care Provider [phone] Allergies Active Allergy Reactions Criticality Noted Date [...] Department Care Team Description 02/19/2025 Orders Only [facility] [address] [place] [address] Rebecca Grover MD 02/16/2025 Refill [facility] [address] [place] [address] Rebecca Grover MD Myasthenia gravis ([facility] 02/15/2025 Refill [facility] [address] [place] [address] Rebecca Grover MD Myasthenia gravis ([facility] 02/08/2025 Orders Only [facility] [address] [place] [address] Rebecca Grover MD Sialorrhea (Primary Dx) 12/24/2024 Orders Only [facility] [address] [place] [address] Rebecca Grover MD Lumbosacral radiculopathy [...] Description 03/29/2025 9:00 AM EDT Office Visit [facility] [address] [place] [address] Rebecca Grover MD [address] [place] [address] Health Maintenance Due Date Last [...] Result from Last 3 Months Insurance MEDICARE [facility] Care Teams Early Learning Teacher Relationship Specialty Start Date End Date Aamir Mauricio [address] [place] [address] PCP - General 01/01/24
--- OUTSIDE RECORDS SUMMARY | 2025-02-26 14:02 | XMS_ITS | Encounter Summary ---
Author Organization [facility] Address [address] [place] [address] Care Team Providers Care Spark Plug Tester Name Role Phone Hugh Beltrán MD Primary Care Provider [phone] Encounter Details Date Type Department Care Team (Late st Contact Info) Description 11/26/2017 myChart Message [facility] [address] [place], [place] [id number] Mary Salazar, DO [address] [place] [address] RE: Referral Request Social History Tobacco Use [...] on filedocumented in this encounter Care Teams Spark Plug Tester Relationship Specialty Start Date End Date Hugh Beltrán MD PCP - General 08/09/17 documented as of this encounter
--- OUTSIDE RECORDS SUMMARY | 2025-02-26 14:02 | XMS_ITS | Encounter Summary ---
Author Organization [facility] Address [address] [place] [address] Care Team Providers Care Agriculture Internship Name Role Phone Hugh Beltrán MD Primary Care Provider [phone] Encounter Details Date Type Department Care Team (Late st Contact Info) Description 10/31/2017 myChart Message [facility] [address] [place], [place] [phone] Mary Salazar, DO [address] [place] [address] RE: Test Results Question Social History Tobacco [...] on filedocumented in this encounter Care Teams Agriculture Internship Relationship Specialty Start Date End Date Hugh Beltrán MD PCP - General 08/09/17 documented as of this encounter
--- OUTSIDE RECORDS SUMMARY | 2025-02-26 14:02 | XMS_ITS | Encounter Summary ---
Author Organization [facility] Address [address] [place] [address] Care Team Providers Care Food Packer Name Role Phone Hugh Beltrán MD Primary Care Provider Encounter Details Date Type Department Care Team (Late st Contact Info) Description 08/09/2020 myChart Message [facility] Neurology Clinic [address] [place], [place] [phone] Mary Salazar, DO [address] [place] [address] RE: Visit Follow-Up Question Social History Tobacco [...] on filedocumented in this encounter Care Teams Food Packer Relationship Specialty Start Date End Date Hugh Beltrán MD PCP - General 08/09/17 documented as of this encounter
--- OUTSIDE RECORDS SUMMARY | 2025-02-26 14:02 | XMS_ITS | Encounter Summary ---
Author Organization [facility] Address [address] [place] [address] Care Team Providers Care Mushroom Growing Supervisor Name Role Phone Hugh Beltrán MD Primary Care Provider Encounter Details Date Type Department Care Team (Late st Contact Info) Description 06/19/2021 Orders Only [facility] Interventional Radiology [address] [place] [phone] Antelmo Johnson MD [address] [place] [address] Social History Tobacco Use Types Packs/Day Years [...] on filedocumented in this encounter Care Teams Mushroom Growing Supervisor Relationship Specialty Start Date End Date Hugh Beltrán MD PCP - General 08/09/17 documented as of this encounter
--- OUTSIDE RECORDS SUMMARY | 2025-02-26 14:02 | XMS_ITS | Encounter Summary ---
Author Organization [facility] Address [address] [place] [address] Care Team Providers Care Multi Disciplined Language Analyst Name Role Phone Hugh Beltrán MD Primary Care Provider [phone] Encounter Details Date Type Department Care Team (Late st Contact Info) Description 11/15/2017 myChart Message [facility] Primary Care [address] [place] [phone] Hugh Beltrán MD [address] [place] [phone] RE: Prescription Question Social History Tobacco Use [...] Miscellaneous Notes * Telephone Encounter - Oleg Cratagena CMA - 11/15/2017 1:43 PM ESTFrom: Favian Hoover To: Hugh Beltrán MD Sent: 11/15/2017 11:22 AM EST Subject: Prescription Question Dr. Beltrán, I called the health center earlier this week asking that you renew my Rx for 25 mg tabs of Hyoscyamine, 120 tablets, at the [facility] in [place]. The number is [phone]. As of this moment, I have 7 tabs left, enough for a week. If I need to come to [place] to supervisor picking crew a paper Rx for this renewal, let [...] on filedocumented in this encounter Care Teams Multi Disciplined Language Analyst Relationship Specialty Start Date End Date Hugh Beltrán MD PCP - General 08/09/17 documented as of this encounter
--- OUTSIDE RECORDS SUMMARY | 2025-02-26 14:02 | XMS_ITS | Encounter Summary ---
Author Organization [facility] Address [address] [place] [address] Care Team Providers Care Tiger Machine Operator Name Role Phone Hugh Beltrán MD Primary Care Provider [phone] Encounter Details Date Type Department Care Team (Late st Contact Info) Description 01/03/2022 myChart Message [facility] Operating Room [address] [place] [address] Mychart, Generic Provider [address] [place], [place] [phone] Dr. Napier will be on vacation 03/19 [...] on filedocumented in this encounter Care Teams Tiger Machine Operator Relationship Specialty Start Date End Date Hugh Beltrán MD PCP - General 08/09/17 documented as of this encounter
--- OUTSIDE RECORDS SUMMARY | 2025-02-26 14:02 | XMS_ITS | Encounter Summary ---
Author Organization [facility] Address [address] [place] [address] Care Team Providers Care Police Sergeant Precinct Name Role Phone Hugh Beltrán MD Primary Care Provider Encounter Details Date Type Department Care Team (Late st Contact Info) Description 11/19/2017 myChart Message [facility] Primary Care [address] [place] [address] Hugh Beltrán MD [address] [place] [address] RE:Hip pain Social History Tobacco Use Types [...] on filedocumented in this encounter Care Teams Police Sergeant Precinct Relationship Specialty Start Date End Date Hugh Beltrán MD PCP - General 08/09/17 documented as of this encounter
--- OUTSIDE RECORDS SUMMARY | 2025-02-26 14:02 | XMS_ITS | Encounter Summary ---
Author Organization [facility] Address [address] [place] [address] Care Team Providers Care Cartridge Feeder Name Role Phone Aamir Mauricio Primary Care Provider [phone] Encounter Details Date Type Department Care Team (Late st Contact Info) Description 10/25/2024 8:00 AM EST Hospital Encounter [facility] Hospital Outpatient [address] [place] [id number] Rebecca Grover MD [address] [place] [address] Social History Tobacco Use Types [...] Description 03/29/2025 9:00 AM EDT Office Visit [facility] [address] [place] [address] Rebecca Grover MD [address] [place], [place] [phone] documented as of this encounter Visit Diagnoses Not on filedocumented in this encounter Care Teams Cartridge Feeder Relationship Specialty Start Date End Date Aamir Mauricio [address] [place] [address] PCP - General 01/01/24 documented as of this encounter
--- OUTSIDE RECORDS SUMMARY | 2025-02-26 14:02 | XMS_ITS | Clinical Summary ---
Author Organization [facility] Address [address] [place] [address] Care Team Providers Care Radio Equipment Installer Name Role Phone Aamir Mauricio MD Primary Care Provider [phone] Allergies Active Allergy Reactions Criticality Noted Date Comments Penicillins Rash Low 10/31/2024 Encounters Date Type Department Care Team Description 01/08/2025 9:00 AM EST Treatment [facility] [address] [place] [address] [phone] Teddy Rich, PT,DPT Radiculopathy, lumbosacral region (Primary Dx); Gait abnormality; Vertebrogenic low back pain; Muscle weakness-general 01/06/2025 8:00 AM EST Treatment [facility] [address] [place] [address] [phone] Nunu Ace Radiculopathy, lumbosacral region (Primary Dx); Gait abnormality; Vertebrogenic low back pain; Acute pain of right knee; Abnormality of gait and mobility; Muscle weakness-general; Muscle weakness (generalized); Unsteadiness on feet 01/04/2025 2:00 PM EST Treatment [facility] [address] [place] [address] Clinton Harrison, PT Radiculopathy, lumbosacral region (Primary Dx); Vertebrogenic low back pain; Abnormality of gait and mobility; Muscle weakness-general; Unsteadiness on feet; Muscle weakness (generalized); Gait abnormality 12/25/2024 9:00 AM EST Treatment [facility] [place] [address] [place] [address] RavinderhamzahDarryl Radiculopathy, lumbosacral region (Primary Dx); Acute pain of right knee 12/23/2024 9:00 AM EST Treatment [facility] [place] [address] [place] [address] AsiaMatthewDarryl K Radiculopathy, lumbosacral region (Primary Dx); Acute pain of right knee 12/22/2024 8:00 AM EST Treatment [facility] [place] [address] [place] [address] Nunu Ace Radiculopathy, lumbosacral region (Primary Dx); Acute pain of right knee; Vertebrogenic low back pain 12/15/2024 8:00 AM EST Evaluation [facility] [place] [address] [place] [address] Clinton Harrison, PT Acute pain of right knee (Primary Dx); Low back pain, unspecified; Radiculopathy, lumbosacral region; Abnormality of gait and mobility; Muscle weakness-general; Unsteadiness on feet; Vertebrogenic low back pain 12/15/2024 Plan of Care Documentation [facility] [place] [address] [place] [address] 12/11/2024 9:00 AM EST Treatment [facility] [place] [address] [place] [address] Teddy Rich, PT,DPT Acute pain of right knee (Primary Dx) 12/09/2024 7:00 AM EST Treatment [facility] [place] [address] [place] [address] Clinton Harrison PT Acute pain of right knee (Primary Dx); Abnormality of gait and mobility; Muscle weakness (generalized); Gait abnormality; Pain in right hip; Vertebrogenic low back pain; Unsteadiness on feet; Muscle weakness-general 12/07/2024 7:00 AM EST Treatment [facility] [place] [address] [place] [phone] Nunu Ace Acute pain of right knee (Primary Dx); Cervical spondylosis; Pain in thoracic spine; Abnormality of gait and mobility; Gait abnormality; Muscle weakness (generalized); Pain in right hip; Vertebrogenic low back pain; Unsteadiness on feet; Muscle weakness-general; Cervicalgia 11/30/2024 7:00 AM EST Treatment [facility] [place] [address] [place] [address] Nunu Ace Acute pain of right knee (Primary Dx); Pain in thoracic spine; Gait abnormality; Pain in right hip; Unsteadiness on feet; Cervicalgia; Cervical spondylosis; Abnormality of gait and mobility; Muscle weakness (generalized); Vertebrogenic low back pain; Muscle weakness-general from Last 3 Months Immunizations Name Administration Dates Next Due Tdap 10/31/2024 Social History Tobacco Use Types Packs/Day Years Used Date Smoking Tobacco: Never Smokeless Tobacco: Never Tobacco Cessation:Counseling Given: Not Answered Alcohol Use Standard Drinks/Week Comments Not Currently 0 (1 standard drink = 0.6 oz pur e alcohol) [facility] Housing Answer Date Recorded Living Situation Not on file 06/27/2023 Housing Problems Not on file 06/27/2023 [facility] Safety Answer Date Recorded Threatened Not on file 06/27/2023 Insulted Not on file 06/27/2023 Physically Hurt Not on file 06/27/2023 Scream Not on file 06/27/2023 Sex and Gender Information Value Date Recorded Sex Assigned at Not on file Gender Identity Not on file Sexual Orientation Not on file Last Filed Vital Signs Vital Sign Reading Time Taken Comments Blood Pressure 176/89 10/31/2024 1:10 PM EST Pulse 88 10/31/2024 1:10 PM EST Temperature 36.4 ??C (97.6 ??F) 10/31/2024 1:10 PM ES T Respiratory Rate 17 10/31/2024 1:10 PM EST Oxygen Saturation 98% 10/31/2024 1:10 PM EST Inhaled Oxygen Concentration - - Weight 99.8 kg (220 lb) 10/31/2024 1:10 PM EST Height 172.7 cm (5' 8 ) 10/31/2024 1:10 PM EST Body Mass Index 33.45 10/31/2024 1:10 PM EST Plan of Treatment Health Maintenance Due Date Last Done Comments Lipid Panel 1950 Medicare Annual Wellness (AWV) 1950 Zoster Vaccines (1 of 2) 1998 Pneumococcal Vaccine: 50+ Years (2 of 2 - PCV) 09/02/2024 09/02/2023 COVID-19 Vaccine ( season) 2025 09/29/2024, 08/05/2023, 08/13/2022, Additional history exists DTaP/Tdap/Td Vaccines (2 - Td or Tdap) 10/31/2034 10/31/2024, 08/21/2021 Cologuard Discontinued 12/10/2022, 12/10/2022 Colorectal Cancer Screening Discontinued Influenza Vaccine Completed 09/29/2024, , 08/13/2022, Additional history exists Respiratory Syncytial Virus (RSV) 60 years and older and/or patients Completed 09/29/2024 CT Colonography Discontinued Colonoscopy Discontinued FIT Discontinued FOBT Discontinued HPV Vaccines Aged Out No longer eligi [...] on patient's age to complete this topic Respiratory Syncytial Virus (RSV) <20 months Aged Out No longer eligible based on patient's age to complete this topic Sigmoidoscopy Discontinued Care Teams Radio Equipment Installer Relationship Specialty Start Date End Date Aamir Mauricio MD PCP - General Internal Medicine 10/16/22
--- OUTSIDE RECORDS SUMMARY | 2025-02-26 14:02 | XMS_ITS | CCD ---
Author Name Interface, [id number] [facility] Address [address] [employer] Address [address] [place] [address] Care Plan Reason for Visit Encounters Medications Administered Medications Problems Social History Vital Signs
--- OUTSIDE RECORDS SUMMARY | 2025-02-26 14:02 | XMS_ITS | Encounter Summary ---
Author Organization [facility] Address [address] [place] [phone] Care Team Providers Care Rouge Presser Name Role Phone Hugh Beltrán MD Primary Care Provider Encounter Details Date Type Department Care Team (Latest Contact Info) Description 03/05/2018 myChart Message [facility] [address]th [address] [place] [address], [place] [address] [employer] Hcm Developer: Lois Voss MD [address] [place], [place] [phone] Prescription Question Social History Tobacco Use Types [...] on filedocumented in this encounter Care Teams Rouge Presser Relationship Specialty Start Date End Date Hugh Beltrán MD PCP - General 08/09/17 documented as of this encounter
--- OUTSIDE RECORDS SUMMARY | 2025-02-26 14:02 | XMS_ITS | Encounter Summary ---
Author Organization [facility] Address [address] [place] [address] Care Team Providers Care Legislative Advocate Name Role Phone Hugh Beltrán MD Primary Care Provider [phone] Encounter Details Date Type Department Care Team (Late st Contact Info) Description 01/28/2018 myChart Message [facility] [address] [place], [place] [phone] Mary Salazar, DO [address] [place] [address] RE: Prescription Question Social History Tobacco Use [...] on filedocumented in this encounter Care Teams Legislative Advocate Relationship Specialty Start Date End Date Hugh Beltrán MD PCP - General 08/09/17 documented as of this encounter
--- OUTSIDE RECORDS SUMMARY | 2025-02-26 14:02 | XMS_ITS | Encounter Summary ---
Author Organization [facility] Address [address] [place] [address] Care Team Providers Care Director Talent Name Role Phone Hugh Beltrán MD Primary Care Provider Encounter Details Date Type Department Care Team (Late st Contact Info) Description 07/11/2020 myChart Message [facility] [address] [place], [place] [phone] Mary Salazar, DO [address] [place] [address] RE: Non-Urgent Medical Question Social History Tobacco [...] on filedocumented in this encounter Care Teams Director Talent Relationship Specialty Start Date End Date Hugh Beltrán MD PCP - General 08/09/17 documented as of this encounter
--- OUTSIDE RECORDS SUMMARY | 2025-02-26 14:02 | XMS_ITS | Encounter Summary ---
Author Organization [facility] Address [address] [place] [address] Care Team Providers Care School Program Director Name Role Phone Hugh Beltrán MD Primary Care Provider [phone] Encounter Details Date Type Department Care Team (Late st Contact Info) Description 12/11/2021 myChart Message [facility] Operating Room [address] [place] [address] Mychart, Generic Provider [address] [place], [place] [phone] Dr. Napier will be on vacation 03/05 [...] on filedocumented in this encounter Care Teams School Program Director Relationship Specialty Start Date End Date Hugh Beltrán MD PCP - General 08/09/17 documented as of this encounter
--- OUTSIDE RECORDS SUMMARY | 2025-02-26 14:02 | XMS_ITS | Encounter Summary ---
Author Organization [facility] Address [address] [place] [address] Care Team Providers Care Signal Mechanic Name Role Phone Hugh Beltrán MD Primary Care Provider Encounter Details Date Type Department Care Team (Late st Contact Info) Description 12/06/2021 myChart Message [facility] [address] [place], [place] [phone] Mary Salazar, DO [address] [place] [address] Rx problems Social History Tobacco Use Types [...] on filedocumented in this encounter Care Teams Signal Mechanic Relationship Specialty Start Date End Date Hugh Beltrán MD PCP - General 08/09/17 documented as of this encounter
--- OUTSIDE RECORDS SUMMARY | 2025-02-26 14:03 | XMS_ITS | Encounter Summary ---
Author Organization [facility] Address [address] [place] [address] Care Team Providers Care Petrophysical Engineer Name Role Phone Hugh Beltrán MD Primary Care Provider Encounter Details Date Type Department Care Team (Late st Contact Info) Description 08/16/2017 myChart Message [facility] Primary Care [address] [place] [address] Hugh Beltrán MD [address] [place] [address] Test Results Question Social History Tobacco Use [...] on filedocumented in this encounter Care Teams Petrophysical Engineer Relationship Specialty Start Date End Date Hugh Beltrán MD PCP - General 08/09/17 documented as of this encounter
--- OUTSIDE RECORDS SUMMARY | 2025-02-26 14:03 | XMS_ITS | Clinical Summary ---
Author Organization [facility] Address [address] [facility] [place] [address] Care Team Providers Care Grinder Gear Name Role Phone Aamir Mauricio MD Primary Care Provider [phone] Allergies Active Allergy Reactions Criticality Noted Date [...] age to complete this topic Insurance MEDICARE [facility] Care Teams Grinder Gear Relationship Specialty [place] [id number] [address] [facility] - General 11/26/23
--- OUTSIDE RECORDS SUMMARY | 2025-02-26 14:03 | XMS_ITS | Encounter Summary ---
Author Organization [facility] Address [address] [place] [address] Care Team Providers Care Rim Technician Name Role Phone Hugh Beltrán MD Primary Care Provider Encounter Details Date Type Department Care Team (Late st Contact Info) Description 05/27/2020 myChart Message [facility] Clinic [address] [place], [place] [phone] Mary Salazar, DO [address] [place] [address] Visit Follow-Up Question Social History Tobacco Use [...] on filedocumented in this encounter Care Teams Rim Technician Relationship Specialty Start Date End Date Hugh Beltrán MD PCP - General 08/09/17 documented as of this encounter
--- OUTSIDE RECORDS SUMMARY | 2025-02-26 14:03 | XMS_ITS | Encounter Summary ---
Author Organization [facility] Address [address] [place] [address] Care Team Providers Care Charge Weigher Name Role Phone Hugh Beltrán MD Primary Care Provider Encounter Details Date Type Department Care Team (Late st Contact Info) Description 10/18/2017 myChart Message [facility] Primary Care [address] [place] [address] Hugh Beltrán MD [address] [place] [address] Referral Request Social History Tobacco Use Types [...] on filedocumented in this encounter Care Teams Charge Weigher Relationship Specialty Start Date End Date Hugh Beltrán MD PCP - General 08/09/17 documented as of this encounter
--- OUTSIDE RECORDS SUMMARY | 2025-02-26 14:03 | XMS_ITS | Encounter Summary ---
Author Organization [facility] Address [address] [place] [address] Care Team Providers Care Remelt Pan Tank Operator Name Role Phone Hugh Beltrán MD Primary Care Provider [phone] Encounter Details Date Type Department Care Team (Late st Contact Info) Description 10/26/2020 myChart Message [facility] Clinic [address] [place], [place] [phone] Mary Salazar, DO [address] [place] [address] RE: Visit Follow-Up Question Social History Tobacco [...] on filedocumented in this encounter Care Teams Remelt Pan Tank Operator Relationship Specialty Start Date End Date Hugh Beltrán MD PCP - General 08/09/17 documented as of this encounter
--- OUTSIDE RECORDS SUMMARY | 2025-02-26 14:03 | XMS_ITS | Encounter Summary ---
Author Organization [facility] Address [address] [place] [address] Care Team Providers Care Clinical Psychologist Private Practice Name Role Phone Hugh Beltrán MD Primary Care Provider Encounter Details Date Type Department Care Team (Late st Contact Info) Description 10/09/2017 myChart Message [facility] Primary Care [address] [place] [address] Hugh Beltrán MD [address] [place] [address] Non-Urgent Medical Question Social History Tobacco Use [...] on filedocumented in this encounter Care Teams Clinical Psychologist Private Practice Relationship Specialty Start Date End Date Hugh Beltrán MD PCP - General 08/09/17 documented as of this encounter
== END 2025-02-26 12:53 | disposition home or self-care (01) ==
LOC: HO.HOSX 12:52
PROVIDERS: Visit Provider Neurological Surgery
DX: M54.16 Radiculopathy, lumbar region (principal)
CPT/HCPCS: 72110; 99202

== ENCOUNTER → 2025-02-26 13:39 | Outpatient (BNV) | payer MEDICARE, SELFPAY | PROVIDERS: Visit Provider Radiology Diagnostic Radiology | DX: M47.816 Spondylosis without myelopathy or radiculopathy, lumbar region (principal) | CPT/HCPCS: 72110 ==

== ENCOUNTER 2025-07-06 08:45 | Day surgery (SDC) | payer MEDICARE, SELFPAY ==
--- OUTSIDE RECORDS SUMMARY | 2025-05-17 13:45 | XMS_ITS ---
Author Organization [facility] Address [facility] [address] Care Team Providers Care Staffing Rn Name Role Phone FIDEL PADILLA Primary Care Provider Gulshan Schaffer Unavailable [phone] Vaibhav Jacobs Unavailable [phone] REASON FOR VISIT Bilateral L5/S1 Transforaminal Epidural Steroid Injection Encounters Encounter Location Date Provider Diagnosis [facility] [address] [facility] [address] [place] [address] 05/17/2025 Vaibhav Jacobs Plan Of Treatment Next Appt Details Provider Name:Vaibhav knox, 05/28/2025 10:15:00 AM, [address], [place], [address], Progress Notes * Favian MEZADOB: [birth year] (74 yo M)Acc No.[id number]:05/17/2025 Patient: Favian STAFFORD Provider: Sarah Jacobs MD :1950 A ge:74 Y S ex:Male Date:05/17/2025 Address:[address] [place] [address] Pcp:FIDEL PADILLA Subjective: * Chief Complaints: * 1 . Bilateral L5/S1 Transforaminal Epidural Steroid Injection. * HPI: A dolescent Depression Screening: Patient has consented to: B ilateral L5/S1 Transforaminal Epidural Steroid Injection. ALLERGIES: Patient denies any allergies to Iodine, shellfish or Contrast. BLOOD THINNERS/ABX: Patient denies taking any antibiotics, aspirin or contra-indicated blood thinners. INFECTION: Patient denies having rash, fever or infection. 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 SHIP RUNNER: Denies having a pacemaker or defibrillator. * Medical History: Objective: * Vitals: Assessment: Plan: * Treatment: * Procedures: - - - - - - - - - - - - - - - - - - - - - - - - - - - - - - - - - - - - - - - - - - - - - - - - - - - LIDOCAINE 2% 100mg/5mL (20mg/mL) LOT#: [id number] EXPIRATION DATE: 01/2026 [facility][NOTE 3]#: [id number] - - - - - - - - - - - - - - - - - - - - - - - - - - - - - - - - - BUPIVICAINE 0.5% [facility] 50mg/10ml(5mg/ml) LOT#: [id number] EXPIRATION DATE: 11/10/25 [facility][NOTE 3]#: [id number] - - - - - - - - - - - - - - - - - - - - - - - - - - - - - - - - - TRIAMCINOLONE (KENALOG 40) 400mg/10mL (40mg/mL) LOT#: [id number] EXPIRATION DATE: 05/10/2026 [facility][NOTE 3]#: [id number] - - - - - - - - - - - - - - - - - - - - - - - - - - - - - - - - - DEXAMETHASONE SODIUM PHOSPHATE 10mg/1mL LOT#: [id number] EXPIRATION DATE: 02/2026 [facility][NOTE 3]#: 3603-7382-40 - - - - - - - - - - - - - - - - - - - - - - - - - - - - - - - - - OMNIPAQUE 350mgI/mL 100mL LOT#:[id number] EXPIRATION DATE: 04/01/2027 [facility][NOTE 3]#: [id number] - - - - - - - - - - - - - - - - - - - - - - - - - - - - - - - - - 0.9% SODIUM CHLORIDE INJECTION , [facility] 20mL LOT#: [id number] EXPIRATION DATE: 08/11/2025 [facility][NOTE 3]#: [id number] - - - - - - - - - - - - - - - - - - - - - - - - - - - - - - - - - . * Images: * Electronic signature of Brayan Jacobs MD on 05/25/2025 at 10:54 AM EDT Sign off status: Pending * Provider: Sarah Jacobs MD Date: 05/17/2025 Generated for Mary Beth nesbitt/Nettie/Akbarsmitting on: 05/25/2025 10:54 AM EDT History and Physical Notes * HPI (History of Present Illness) Category Sub-Category Detail Notes Category Not es Adolescent Depression Screening Patient has consented to: Bilateral L5/S1 Transforaminal Epidural Steroid Injection. ALLERGIES: Patient denies any allergies to Iodine, shellfish or Contrast. BLOOD THINNERS/ABX: Patient denies taking any antibiotics, aspirin or contra-indicated blood thinners. INFECTION: Patient denies having rash, fever or infection. 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 SHIP RUNNER: Denies having a pacemaker or defibrillator.
--- OUTSIDE RECORDS SUMMARY | 2025-05-25 10:54 | XMS_ITS | Clinical Summary ---
Author Organization [facility] Address [address] [place] [id number] Care Team Providers Care [place] Administrator Name Role Phone aAmir Mauricio MD Primary Care Provider [phone] Allergies Active Allergy Reactions Criticality Noted Date Comments Penicillins Rash Low 10/31/2024 Immunizations Immunization Administration Dates Next Due Tdap 10/31/2024 Social History Tobacco Use Types Packs/Day Years Used Date Smoking Tobacco: Never Smokeless Tobacco: Never Tobacco Cessation:Counseling Given: Not Answered Alcohol Use Standard Drinks/Week Comments Not Currently 0 (1 standard drink = 0.6 oz pur e alcohol) [facility] Housing Answer Date Recorded Living Situation Not on file 06/27/2023 Housing Problems Not on file 06/27/2023 [facility] Safety Answer Date Recorded Threatened Not on file 06/27/2023 Insulted Not on file 06/27/2023 Physically Hurt Not on file 06/27/2023 Scream Not on file 06/27/2023 Sex and Gender Information Value Date Recorded Sex Assigned at Not on file Legal Sex Male 5:12 AM EDT Gender Identity Not on file Sexual Orientation Not on file Last Filed Vital Signs Vital Sign Reading Time Taken Comments Blood Pressure 176/89 10/31/2024 1:10 PM EST Pulse 88 10/31/2024 1:10 PM EST Temperature 36.4 C (97.6 F) 10/31/2024 1:10 PM EST Respiratory Rate 17 10/31/2024 1:10 PM EST [...] Panel 1948 Medicare Annual Wellness (AWV) 1950 Depression Screening 1960 Zoster Vaccines (1 of 2) 1998 Pneumococcal Vaccine: 50+ Years (2 of 2 - PCV) 09/02/2024 09/02/2023 COVID-19 Vaccine ( season) 2025 09/29/2024, 08/05/2023, 08/13/2022, Additional history exists Influenza Vaccine (#1) 2025 , 08/05/2023, 08/13/2022, Additional history exists DTaP/Tdap/Td Vaccines (2 - Td or Tdap) 10/31/2034 10/31/2024, 08/21/2021 Cologuard Discontinued 12/10/2022, 12/10/2022 Colorectal Cancer Screening Discontinued Respiratory Syncytial Virus (RSV) 60 years and [...] age to complete this topic Sigmoidoscopy Discontinued Insurance [facility]ICARE [facility] Care Teams [place] Administrator Relationship Specialty Start Date End Date Aamir Mauricio MD PCP - General Internal Medicine 10/16/22
--- OUTSIDE RECORDS SUMMARY | 2025-05-25 10:54 | XMS_ITS | CCD ---
Author Name Interface, [id number] lity Address [address] [place] [address] Organization [facility] Address [address] [place] [address] Allergies and Adverse Reactions Medication/Group Name Reaction Severity Date Penicillins 08/03/2023 Care Plan Date Type Value 06/25/2025 APPOINTMENT [facility] Hytrulo 1008mg weekly x4 doses, q 50 days, BB, TARA 06/18/2025 APPOINTMENT [facility]ulo 1008mg weekly x4 doses, q 50 days, BB, TARA 06/11/2025 APPOINTMENT [facility] Hytrulo 1008mg weekly x4 doses, q 50 days, BB, TARA 06/04/2025 APPOINTMENT [facility] Hytrulo 1008mg weekly x4 doses, q 50 days, BB, TARA 04/30/2025 APPOINTMENT [facility] Hytrulo 1008mg weekly x4 doses, q 50 days, BB, TARA 04/23/2025 APPOINTMENT [facility]ulo 1008mg weekly x4 doses, q 50 days, BB, TARA 04/16/2025 APPOINTMENT [facility]ulo 1008mg weekly x4 doses, q 50 days, BB, TARA 04/09/2025 APPOINTMENT [facility]trulo 1008mg weekly x4 doses, q 50 days, BB, TARA 02/19/2025 APPOINTMENT [facility] 1008mg weekly x4 [...] x4 doses, q 50 days, TARA VELASCO 06/26/2024 APPOINTMENT [facility]ulo 1008mg weekly x4 doses, q 50 days, TARA VELASCO 05/26/2024 APPOINTMENT [facility]ulo 1008mg weekly x4 doses, q 50 days, ROD TARA Reason for Visit [facility]ulo 1008mg weekly x4 doses, q 50 days, ROD, TARA Encounters Date Name 06/25/2025 Myasthenia gravis wi thout exacerbation (disorder) 06/18/2025 Myasthenia gravis wi thout exacerbation (disorder) 06/11/2025 Myasthenia gravis wi thout exacerbation (disorder) 06/04/2025 Myasthenia gravis wi thout exacerbation (disorder) 04/30/2025 Myasthenia gravis wi thout exacerbation (disorder) 06/25/2025 Vyvgart Hytrulo 1008 mg weekly x4 doses, q 50 days, TARA VELASCO 06/18/2025 [facility] Hytrulo 1008 mg weekly x4 doses, q 50 days, TARA VELASCO 06/11/2025 [facility] Hytrulo 1008 mg weekly x4 doses, q 50 days, TARA VELASCO 06/04/2025 [facility] Hytrulo 1008 mg weekly x4 doses, q 50 days, TARA VELASCO 04/30/2025 [facility] Hytrulo 1008 mg weekly x4 doses, q 50 days, TARA VELASCO Medications Administered Date Name Route Dose Frequency Instructions Start Date End Date Status 04/30 5.6 ML efgartigimod byron-qvfc 180 MG/ML / [...] needed or the patientshould seek medical attention. 04/30 inactive 04/23 5.6 ML efgartigimod byron-qvfc 180 MG/ML / [...] needed or the patientshould seek medical attention. 04/23 inactive 04/16 5.6 ML efgartigimod byron-qvfc 180 MG/ML / [...] needed or the patientshould seek medical attention. 04/16 inactive 04/09 5.6 ML efgartigimod byron-qvfc 180 MG/ML / [...] needed or the patientshould seek medical attention. 04/09 inactive 02/19 5.6 ML efgartigimod byron-qvfc 180 MG/ML [...] the patientshould seek medical attention. 12/18 inactive 11/13 5.6 ML efgartigimod byron-qvfc 180 MG/ML / [...] the patientshould seek medical attention. 05/26 inactive Medications Date Name Route Dose Frequency Instructions Start Date End Date Status 03/02 hydrocortison e 100 MG Injection intravenously 100.0 mg once 2025 active 03/02 epinephrine hydrochloride intramuscularl y 0.3 mg once 2025 active 03/02 ondansetron hydrochloride intravenously 4.0 mg once 2025 active 03/02 Oxygen inhaled 2.0 L Use as Directed Titrate to keep SPO2 >92% 2025 active 03/02 acetaminophen 325 MG Oral Capsule orally 650.0 mg once 2025 active 03/02 5.6 ML efgartigimod byron-qvfc 180 MG/ML / [...] needed or the patientshould seek medical attention. 2025 active 03/02 methylprednis olone 2000 MG Injection intravenously 125.0 mg once 2025 active 03/02 diphenhydrami ne hydrochloride 0.5 MG/ML Injectable Solution intravenously 50.0 mg once 2025 active 02/23 acetaminophen 325 MG Oral Capsule orally 650.0 mg once 2025 active 02/23 ondansetron hydrochloride intravenously 4.0 mg once 2025 active 02/23 hydrocortison e 100 MG Injection intravenously 100.0 mg once 2025 active 02/23 5.6 ML efgartigimod byron-qvfc 180 MG/ML / [...] needed or the patientshould seek medical attention. 2025 active 02/23 epinephrine hydrochloride intramuscularl y 0.3 mg once 2025 active 02/23 methylprednis olone 2000 MG Injection intravenously 125.0 mg once 2025 active 02/23 Oxygen inhaled 2.0 L Use as Directed Titrate to keep SPO2 >92% 2025 active 02/23 diphenhydrami ne hydrochloride 0.5 MG/ML Injectable Solution intravenously 50.0 mg once 2025 active 02/16 5.6 ML efgartigimod byron-qvfc 180 MG/ML / [...] needed or the patientshould seek medical attention. 2025 active 02/16 diphenhydrami ne hydrochloride 0.5 MG/ML Injectable Solution intravenously 50.0 mg once 2025 active 02/16 Oxygen inhaled 2.0 L Use as Directed Titrate to keep SPO2 >92% 2025 active 02/16 acetaminophen 325 MG Oral Capsule orally 650.0 mg once 2025 active 02/16 hydrocortison e 100 MG Injection intravenously 100.0 mg once 2025 active 02/16 epinephrine hydrochloride intramuscularl y 0.3 mg once 2025 active 02/16 methylprednis olone 2000 MG Injection intravenously 125.0 mg once 2025 active 02/16 ondansetron hydrochloride intravenously 4.0 mg once 2025 active 02/09 Oxygen inhaled 2.0 L Use as Directed Titrate to keep SPO2 >92% 2025 active 02/09 methylprednis olone 2000 MG Injection intravenously 125.0 mg once 2025 active 02/09 acetaminophen 325 MG Oral Capsule orally 650.0 mg once 2025 active 02/09 hydrocortison e 100 MG Injection intravenously 100.0 mg once 2025 active 02/09 epinephrine hydrochloride intramuscularl y 0.3 mg once 2025 active 02/09 ondansetron hydrochloride intravenously 4.0 mg once 2025 active 02/09 diphenhydrami ne hydrochloride 0.5 MG/ML Injectable Solution intravenously 50.0 mg once 2025 active 02/09 5.6 ML efgartigimod byron-qvfc 180 MG/ML / [...] needed or the patientshould seek medical attention. 2025 active 01/11 Oxygen inhaled 2.0 L Use as Directed Titrate to keep SPO2 >92% 2025 active 01/11 methylprednis olone 2000 MG Injection intravenously 125.0 mg once 2025 active 01/11 hydrocortison e 100 MG Injection intravenously 100.0 mg once 2025 active 01/11 acetaminophen 325 MG Oral Capsule orally 650.0 mg once 2025 active 01/11 epinephrine hydrochloride intramuscularl y 0.3 mg once 2025 active 01/11 diphenhydrami ne hydrochloride 0.5 MG/ML Injectable Solution intravenously 50.0 mg once 2025 active 01/11 ondansetron hydrochloride intravenously 4.0 mg once 2025 active 01/11 5.6 ML efgartigimod byron-qvfc 180 MG/ML / [...] needed or the patientshould seek medical attention. 2025 active 01/04 diphenhydrami ne hydrochloride 0.5 MG/ML Injectable Solution intravenously 50.0 mg once 2025 active 01/04 epinephrine hydrochloride intramuscularl y 0.3 mg once 2025 active 01/04 acetaminophen 325 MG Oral Capsule orally 650.0 mg once 2025 active 01/04 hydrocortison e 100 MG Injection intravenously 100.0 mg once 2025 active 01/04 Oxygen inhaled 2.0 L Use as Directed Titrate to keep SPO2 >92% 2025 active 01/04 ondansetron hydrochloride intravenously 4.0 mg once 2025 active 01/04 methylprednis olone 2000 MG Injection intravenously 125.0 mg once 2025 active 01/04 5.6 ML efgartigimod byron-qvfc 180 MG/ML / [...] needed or the patientshould seek medical attention. 2025 active 12/28 diphenhydrami ne hydrochloride 0.5 MG/ML Injectable Solution intravenously 50.0 mg once 2025 active 12/28 5.6 ML efgartigimod byron-qvfc 180 MG/ML / [...] needed or the patientshould seek medical attention. 2025 active 12/28 ondansetron hydrochloride intravenously 4.0 mg once 2025 active 12/28 methylprednis olone 2000 MG Injection intravenously 125.0 mg once 2025 active 12/28 Oxygen inhaled 2.0 L Use as Directed Titrate to keep SPO2 >92% 2025 active 12/28 acetaminophen 325 MG Oral Capsule orally 650.0 mg once 2025 active 12/28 epinephrine hydrochloride intramuscularl y 0.3 mg once 2025 active 12/28 hydrocortison e 100 MG Injection intravenously 100.0 mg once 2025 active 12/21 epinephrine hydrochloride intramuscularl y 0.3 mg once 2025 active 12/21 acetaminophen 325 MG Oral Capsule orally 650.0 mg once 2025 active 12/21 ondansetron hydrochloride intravenously 4.0 mg once 2025 active 12/21 diphenhydrami ne hydrochloride 0.5 MG/ML Injectable Solution intravenously 50.0 mg once 2025 active 12/21 Oxygen inhaled 2.0 L Use as Directed Titrate to keep SPO2 >92% 2025 active 12/21 hydrocortison e 100 MG Injection intravenously 100.0 mg once 2025 active 12/21 methylprednis olone 2000 MG Injection intravenously 125.0 mg once 2025 active 12/21 5.6 ML efgartigimod byron-qvfc 180 MG/ML / [...] needed or the patientshould seek medical attention. 2025 active 11/22 ondansetron hydrochloride intravenously 4.0 mg once 2025 active 11/22 5.6 ML efgartigimod byron-qvfc 180 MG/ML / [...] needed or the patientshould seek medical attention. 2025 active 11/22 epinephrine hydrochloride intramuscularl y 0.3 mg once 2025 active 11/22 acetaminophen 325 MG Oral Capsule orally 650.0 mg once 2025 active 11/22 Oxygen inhaled 2.0 L Use as Directed Titrate to keep SPO2 >92% 2025 active 11/22 diphenhydrami ne hydrochloride 0.5 MG/ML Injectable Solution intravenously 50.0 mg once 2025 active 11/22 methylprednis olone 2000 MG Injection intravenously 125.0 mg once 2025 active 11/22 hydrocortison e 100 MG Injection intravenously 100.0 mg once 2025 active 11/15 acetaminophen 325 MG Oral Capsule orally 650.0 mg once 2025 active 11/15 methylprednis olone 2000 MG Injection intravenously 125.0 mg once 2025 active 11/15 ondansetron hydrochloride intravenously 4.0 mg once 2025 active 11/15 epinephrine hydrochloride intramuscularl y 0.3 mg once 2025 active 11/15 5.6 ML efgartigimod byron-qvfc 180 MG/ML / [...] needed or the patientshould seek medical attention. 2025 active 11/15 Oxygen inhaled 2.0 L Use as Directed Titrate to keep SPO2 >92% 2025 active 11/15 diphenhydrami ne hydrochloride 0.5 MG/ML Injectable Solution intravenously 50.0 mg once 2025 active 11/15 hydrocortison e 100 MG Injection intravenously 100.0 mg once 2025 active 11/08 Oxygen inhaled 2.0 L Use as Directed Titrate to keep SPO2 >92% 2024 active 11/08 epinephrine hydrochloride intramuscularl y 0.3 mg once 2024 active 11/08 acetaminophen 325 MG Oral Capsule orally 650.0 mg once 2024 active 11/08 methylprednis olone 2000 MG Injection intravenously 125.0 mg once 2024 active 11/08 diphenhydrami ne hydrochloride 0.5 MG/ML Injectable Solution intravenously 50.0 mg once 2024 active 11/08 hydrocortison e 100 MG Injection intravenously 100.0 mg once 2024 active 11/08 5.6 ML efgartigimod byron-qvfc 180 MG/ML / [...] the patientshould seek medical attention. 2024 active 11/08 ondansetron hydrochloride intravenously 4.0 mg once 2024 active 11/01 ondansetron hydrochloride intravenously 4.0 mg once 2024 active 11/01 acetaminophen 325 MG Oral Capsule orally 650.0 mg once 2024 active 11/01 Oxygen inhaled 2.0 L Use as Directed Titrate to keep SPO2 >92% 2024 active 11/01 methylprednis olone 2000 MG Injection intravenously 125.0 mg once 2024 active 11/01 epinephrine hydrochloride intramuscularl y 0.3 mg once 2024 active 11/01 diphenhydrami ne hydrochloride 0.5 MG/ML Injectable Solution intravenously 50.0 mg once 2024 active 11/01 5.6 ML efgartigimod byron-qvfc 180 MG/ML / [...] the patientshould seek medical attention. 2024 active 11/01 hydrocortison e 100 MG Injection intravenously 100.0 mg once 2024 active 10/03 epinephrine hydrochloride intramuscularl y 0.3 mg once 2024 active 10/03 acetaminophen 325 MG Oral Capsule orally 650.0 mg once 2024 active 10/03 Oxygen inhaled 2.0 L Use as Directed Titrate to keep SPO2 >92% 2024 active 10/03 diphenhydrami ne hydrochloride 0.5 MG/ML Injectable Solution intravenously 50.0 mg once 2024 active 10/03 ondansetron hydrochloride intravenously 4.0 mg once 2024 active 10/03 methylprednis olone 2000 MG Injection intravenously 125.0 mg once 2024 active 10/03 5.6 ML efgartigimod byron-qvfc 180 MG/ML / [...] the patientshould seek medical attention. 2024 active 10/03 hydrocortison e 100 MG Injection intravenously 100.0 mg once 2024 active 09/26 epinephrine hydrochloride intramuscularl y 0.3 mg once 2024 active 09/26 Oxygen inhaled 2.0 L Use as Directed Titrate to keep SPO2 >92% 2024 active 09/26 hydrocortison e 100 MG Injection intravenously 100.0 mg once 2024 active 09/26 ondansetron hydrochloride intravenously 4.0 mg once 2024 active 09/26 5.6 ML efgartigimod byron-qvfc 180 MG/ML / [...] the patientshould seek medical attention. 2024 active 09/26 methylprednis olone 2000 MG Injection intravenously 125.0 mg once 2024 active 09/26 diphenhydrami ne hydrochloride 0.5 MG/ML Injectable Solution intravenously 50.0 mg once 2024 active 09/26 acetaminophen 325 MG Oral Capsule orally 650.0 mg once 2024 active 09/19 acetaminophen 325 MG Oral Capsule orally 650.0 mg once 2024 active 09/19 ondansetron hydrochloride intravenously 4.0 mg once 2024 active 09/19 diphenhydrami ne hydrochloride 0.5 MG/ML Injectable Solution intravenously 50.0 mg once 2024 active 09/19 hydrocortison e 100 MG Injection intravenously 100.0 mg once 2024 active 09/19 epinephrine hydrochloride intramuscularl y 0.3 mg once 2024 active 09/19 methylprednis olone 2000 MG Injection intravenously 125.0 mg once 2024 active 09/19 Oxygen inhaled 2.0 L Use as Directed Titrate to keep SPO2 >92% 2024 active 09/19 5.6 ML efgartigimod byron-qvfc 180 MG/ML / [...] the patientshould seek medical attention. 2024 active 09/12 hydrocortison e 100 MG Injection intravenously 100.0 mg once 2024 active 09/12 Oxygen inhaled 2.0 L Use as Directed Titrate to keep SPO2 >92% 2024 active 09/12 methylprednis olone 2000 MG Injection intravenously 125.0 mg once 2024 active 09/12 epinephrine hydrochloride intramuscularl y 0.3 mg once 2024 active 09/12 5.6 ML efgartigimod byron-qvfc 180 MG/ML / [...] the patientshould seek medical attention. 2024 active 09/12 diphenhydrami ne hydrochloride 0.5 MG/ML Injectable Solution intravenously 50.0 mg once 2024 active 09/12 acetaminophen 325 MG Oral Capsule orally 650.0 mg once 2024 active 09/12 ondansetron hydrochloride intravenously 4.0 mg once 2024 active 08/14 acetaminophen 325 MG Oral Capsule orally 650.0 mg once 2024 active 08/14 methylprednis olone 2000 MG Injection intravenously 125.0 mg once 2024 active 08/14 diphenhydrami ne hydrochloride 0.5 MG/ML Injectable Solution intravenously 50.0 mg once 2024 active 08/14 epinephrine hydrochloride intramuscularl y 0.3 mg once 2024 active 08/14 hydrocortison e 100 MG Injection intravenously 100.0 mg once 2024 active 08/14 Oxygen inhaled 2.0 L Use as Directed Titrate to keep SPO2 >92% 2024 active 08/14 ondansetron hydrochloride intravenously 4.0 mg once 2024 active 08/14 5.6 ML efgartigimod byron-qvfc 180 MG/ML / [...] the patientshould seek medical attention. 2024 active 08/07 Oxygen inhaled 2.0 L Use as Directed Titrate to keep SPO2 >92% 2024 active 08/07 diphenhydrami ne hydrochloride 0.5 MG/ML Injectable Solution intravenously 50.0 mg once 2024 active 08/07 hydrocortison e 100 MG Injection intravenously 100.0 mg once 2024 active 08/07 methylprednis olone 2000 MG Injection intravenously 125.0 mg once 2024 active 08/07 ondansetron hydrochloride intravenously 4.0 mg once 2024 active 08/07 acetaminophen 325 MG Oral Capsule orally 650.0 mg once 2024 active 08/07 epinephrine hydrochloride intramuscularl y 0.3 mg once 2024 active 08/07 5.6 ML efgartigimod byron-qvfc 180 MG/ML / [...] the patientshould seek medical attention. 2024 active 07/31 hydrocortison e 100 MG Injection intravenously 100.0 mg once 2024 active 07/31 acetaminophen 325 MG Oral Capsule orally 650.0 mg once 2024 active 07/31 5.6 ML efgartigimod byron-qvfc 180 MG/ML / [...] the patientshould seek medical attention. 2024 active 07/31 Oxygen inhaled 2.0 L Use as Directed Titrate to keep SPO2 >92% 2024 active 07/31 diphenhydrami ne hydrochloride 0.5 MG/ML Injectable Solution intravenously 50.0 mg once 2024 active 07/31 epinephrine hydrochloride intramuscularl y 0.3 mg once 2024 active 07/31 methylprednis olone 2000 MG Injection intravenously 125.0 mg once 2024 active 07/31 ondansetron hydrochloride intravenously 4.0 mg once 2024 active 07/24 hydrocortison e 100 MG Injection intravenously 100.0 mg once 2024 active 07/24 methylprednis olone 2000 MG Injection intravenously 125.0 mg once 2024 active 07/24 acetaminophen 325 MG Oral Capsule orally 650.0 mg once 2024 active 07/24 diphenhydrami ne hydrochloride 0.5 MG/ML Injectable Solution intravenously 50.0 mg once 2024 active 07/24 Oxygen inhaled 2.0 L Use as Directed Titrate to keep SPO2 >92% 2024 active 07/24 epinephrine hydrochloride intramuscularl y 0.3 mg once 2024 active 07/24 5.6 ML efgartigimod byron-qvfc 180 MG/ML / [...] the patientshould seek medical attention. 2024 active 07/24 ondansetron hydrochloride intravenously 4.0 mg once 2024 active 06/25 Oxygen inhaled 2.0 L Use as Directed Titrate to keep SPO2 >92% 2024 active 06/25 ondansetron hydrochloride intravenously 4.0 mg once 2024 active 06/25 methylprednis olone 2000 MG Injection intravenously 125.0 mg once 2024 active 06/25 5.6 ML efgartigimod byron-qvfc 180 MG/ML / [...] the patientshould seek medical attention. 2024 active 06/25 diphenhydrami ne hydrochloride 0.5 MG/ML Injectable Solution intravenously 50.0 mg once 2024 active 06/25 hydrocortison e 100 MG Injection intravenously 100.0 mg once 2024 active 06/25 epinephrine hydrochloride intramuscularl y 0.3 mg once 2024 active 06/25 acetaminophen 325 MG Oral Capsule orally 650.0 mg once 2024 active 06/18 Oxygen inhaled 2.0 L Use as Directed Titrate to keep SPO2 >92% 2024 active 06/18 epinephrine hydrochloride intramuscularl y 0.3 mg once 2024 active 06/18 ondansetron hydrochloride intravenously 4.0 mg once 2024 active 06/18 diphenhydrami ne hydrochloride 0.5 MG/ML Injectable Solution intravenously 50.0 mg once 2024 active 06/18 acetaminophen 325 MG Oral Capsule orally 650.0 mg once 2024 active 06/18 hydrocortison e 100 MG Injection intravenously 100.0 mg once 2024 active 06/18 5.6 ML efgartigimod byron-qvfc 180 MG/ML / [...] the patientshould seek medical attention. 2024 active 06/18 methylprednis olone 2000 MG Injection intravenously 125.0 mg once 2024 active 06/11 Oxygen inhaled 2.0 L Use as Directed Titrate to keep SPO2 >92% 2024 active 06/11 acetaminophen 325 MG Oral Capsule orally 650.0 mg once 2024 active 06/11 5.6 ML efgartigimod byron-qvfc 180 MG/ML / [...] the patientshould seek medical attention. 2024 active 06/11 epinephrine hydrochloride intramuscularl y 0.3 mg once 2024 active 06/11 methylprednis olone 2000 MG Injection intravenously 125.0 mg once 2024 active 06/11 hydrocortison e 100 MG Injection intravenously 100.0 mg once 2024 active 06/11 diphenhydrami ne hydrochloride 0.5 MG/ML Injectable Solution intravenously 50.0 mg once 2024 active 06/11 ondansetron hydrochloride intravenously 4.0 mg once 2024 active 06/04 Oxygen inhaled 2.0 L Use as Directed Titrate to keep SPO2 >92% 2024 active 06/04 5.6 ML efgartigimod byron-qvfc 180 MG/ML / [...] the patientshould seek medical attention. 2024 active 06/04 diphenhydrami ne hydrochloride 0.5 MG/ML Injectable Solution intravenously 50.0 mg once 2024 active 06/04 acetaminophen 325 MG Oral Capsule orally 650.0 mg once 2024 active 06/04 ondansetron hydrochloride intravenously 4.0 mg once 2024 active 06/04 hydrocortison e 100 MG Injection intravenously 100.0 mg once 2024 active 06/04 methylprednis olone 2000 MG Injection intravenously 125.0 mg once 2024 active 06/04 epinephrine hydrochloride intramuscularl y 0.3 mg once 2024 active 04/30 ondansetron hydrochloride intravenously 4.0 mg once 2024 active 04/30 Oxygen inhaled 2.0 L Use as Directed Titrate to keep SPO2 >92% 2024 active 04/30 methylprednis olone 2000 MG Injection intravenously 125.0 mg once 2024 active 04/30 epinephrine hydrochloride intramuscularl y 0.3 mg once 2024 active 04/30 diphenhydrami ne hydrochloride 0.5 MG/ML Injectable Solution intravenously 50.0 mg once 2024 active 04/30 acetaminophen 325 MG Oral Capsule orally 650.0 mg once 2024 active 04/30 hydrocortison e 100 MG Injection intravenously 100.0 mg once 2024 active 04/23 methylprednis olone 2000 MG Injection intravenously 125.0 mg once 2024 active 04/23 epinephrine hydrochloride intramuscularl y 0.3 mg once 2024 active 04/23 ondansetron hydrochloride intravenously 4.0 mg once 2024 active 04/23 diphenhydrami ne hydrochloride 0.5 MG/ML Injectable Solution intravenously 50.0 mg once 2024 active 04/23 Oxygen inhaled 2.0 L Use as Directed Titrate to keep SPO2 >92% 2024 active 04/23 acetaminophen 325 MG Oral Capsule orally 650.0 mg once 2024 active 04/23 hydrocortison e 100 MG Injection intravenously 100.0 mg once 2024 active 04/16 acetaminophen 325 MG Oral Capsule orally 650.0 mg once 2024 active 04/16 methylprednis olone 2000 MG Injection intravenously 125.0 mg once 2024 active 04/16 epinephrine hydrochloride intramuscularl y 0.3 mg once 2024 active 04/16 Oxygen inhaled 2.0 L Use as Directed Titrate to keep SPO2 >92% 2024 active 04/16 ondansetron hydrochloride intravenously 4.0 mg once 2024 active 04/16 hydrocortison e 100 MG Injection intravenously 100.0 mg once 2024 active 04/16 diphenhydrami ne hydrochloride 0.5 MG/ML Injectable Solution intravenously 50.0 mg once 2024 active 04/09 Oxygen inhaled 2.0 L Use as Directed Titrate to keep SPO2 >92% 2024 active 04/09 acetaminophen 325 MG Oral Capsule orally 650.0 mg once 2024 active 04/09 ondansetron hydrochloride intravenously 4.0 mg once 2024 active 04/09 epinephrine hydrochloride intramuscularl y 0.3 mg once 2024 active 04/09 hydrocortison e 100 MG Injection intravenously 100.0 mg once 2024 active 04/09 diphenhydrami ne hydrochloride 0.5 MG/ML Injectable Solution intravenously 50.0 mg once 2024 active 04/09 methylprednis olone 2000 MG Injection intravenously 125.0 mg once 2024 active 03/05 diphenhydrami ne hydrochloride 0.5 MG/ML Injectable Solution intravenously 50.0 mg once 03/05 on hold 03/05 ondansetron hydrochloride intravenously 4.0 mg once 03/05 on hold 03/05 5.6 ML efgartigimod byron-qvfc 180 MG/ML [...] needed or the patientshould seek medical attention. 03/05 on hold 03/05 Oxygen inhaled 2.0 L Use as Directed Titrate to keep SPO2 >92% 03/05 on hold 03/05 hydrocortison e 100 MG Injection intravenously 100.0 mg once 03/05 on hold 03/05 acetaminophen 325 MG Oral Capsule orally 650.0 mg once 03/05 on hold 03/05 methylprednis olone 2000 MG Injection intravenously 125.0 mg once 03/05 on hold 03/05 epinephrine hydrochloride intramuscularl y 0.3 mg once 03/05 on hold 02/26 diphenhydrami ne hydrochloride 0.5 MG/ML Injectable Solution intravenously 50.0 mg once 02/26 on hold 02/26 hydrocortison e 100 MG Injection intravenously 100.0 mg once 02/26 on hold 02/26 epinephrine hydrochloride intramuscularl y 0.3 mg once 02/26 on hold 02/26 Oxygen inhaled 2.0 L Use as Directed Titrate to keep SPO2 >92% 02/26 on hold 02/26 acetaminophen 325 MG Oral Capsule orally 650.0 mg once 02/26 on hold 02/26 methylprednis olone 2000 MG Injection intravenously 125.0 mg once 02/26 on hold 02/26 ondansetron hydrochloride intravenously 4.0 mg once 02/26 on hold 02/26 5.6 ML efgartigimod byron-qvfc 180 MG/ML [...] needed or the patientshould seek medical attention. 02/26 on hold 02/19 diphenhydrami ne hydrochloride 0.5 MG/ML Injectable Solution intravenously 50.0 mg once 2024 active 02/19 hydrocortison e 100 MG Injection intravenously 100.0 mg once 2024 active 02/19 methylprednis olone 2000 MG Injection intravenously 125.0 mg once 2024 active 02/19 ondansetron hydrochloride intravenously 4.0 mg once 2024 active 02/19 epinephrine hydrochloride intramuscularl y 0.3 mg once 2024 active 02/19 Oxygen inhaled 2.0 L Use as Directed Titrate to keep SPO2 >92% 2024 active 02/19 acetaminophen 325 MG Oral Capsule orally 650.0 mg once 2024 active 02/12 methylprednis olone 2000 MG Injection intravenously 125.0 mg once 2024 active 02/12 diphenhydrami ne hydrochloride 0.5 MG/ML Injectable Solution intravenously 50.0 mg once 2024 active 02/12 epinephrine hydrochloride intramuscularl y 0.3 mg once 2024 active 02/12 Oxygen inhaled 2.0 L Use as Directed Titrate to keep SPO2 >92% 2024 active 02/12 ondansetron hydrochloride intravenously 4.0 mg once 2024 active 02/12 hydrocortison e 100 MG Injection intravenously 100.0 mg once 2024 active 02/12 acetaminophen 325 MG Oral Capsule orally 650.0 mg once 2024 active 01/08 epinephrine hydrochloride intramuscularl y 0.3 mg once 2024 active 01/08 hydrocortison e 100 MG Injection intravenously 100.0 mg once 2024 active 01/08 acetaminophen 325 MG Oral Capsule orally 650.0 mg once 2024 active 01/08 diphenhydrami ne hydrochloride 0.5 MG/ML Injectable Solution intravenously 50.0 mg once 2024 active 01/08 methylprednis olone 2000 MG Injection intravenously 125.0 mg once 2024 active 01/08 Oxygen inhaled 2.0 L Use as Directed Titrate to keep SPO2 >92% 2024 active 01/08 ondansetron hydrochloride intravenously 4.0 mg once 2024 active 01/01 hydrocortison e 100 MG Injection intravenously 100.0 mg once 2024 active 01/01 epinephrine hydrochloride intramuscularl y 0.3 mg once 2024 active 01/01 Oxygen inhaled 2.0 L Use as Directed Titrate to keep SPO2 >92% 2024 active 01/01 methylprednis olone 2000 MG Injection intravenously 125.0 mg once 2024 active 01/01 ondansetron hydrochloride intravenously 4.0 mg once 2024 active 01/01 diphenhydrami ne hydrochloride 0.5 MG/ML Injectable Solution intravenously 50.0 mg once 2024 active 01/01 acetaminophen 325 MG Oral Capsule orally 650.0 mg once 2024 active 12/25 methylprednis olone 2000 MG Injection intravenously 125.0 mg once 2024 active 12/25 ondansetron hydrochloride intravenously 4.0 mg once 2024 active 12/25 epinephrine hydrochloride intramuscularl y 0.3 mg once 2024 active 12/25 Oxygen inhaled 2.0 L Use as Directed Titrate to keep SPO2 >92% 2024 active 12/25 hydrocortison e 100 MG Injection intravenously 100.0 mg once 2024 active 12/25 acetaminophen 325 MG Oral Capsule orally 650.0 mg once 2024 active 12/25 diphenhydrami ne hydrochloride 0.5 MG/ML Injectable Solution intravenously 50.0 mg once 2024 active 12/18 acetaminophen 325 MG Oral Capsule orally 650.0 mg once 2024 active 12/18 hydrocortison e 100 MG Injection intravenously 100.0 mg once 2024 active 12/18 ondansetron hydrochloride intravenously 4.0 mg once 2024 active 12/18 epinephrine hydrochloride intramuscularl y 0.3 mg once 2024 active 12/18 diphenhydrami ne hydrochloride 0.5 MG/ML Injectable Solution intravenously 50.0 mg once 2024 active 12/18 Oxygen inhaled 2.0 L Use as Directed Titrate to keep SPO2 >92% 2024 active 12/18 methylprednis olone 2000 MG Injection intravenously 125.0 mg once 2024 active 11/13 ondansetron hydrochloride intravenously 4.0 mg once 2024 active 11/13 diphenhydrami ne hydrochloride 0.5 MG/ML Injectable Solution intravenously 50.0 mg once 2024 active 11/13 Oxygen inhaled 2.0 L Use as Directed Titrate to keep SPO2 >92% 2024 active 11/13 methylprednis olone 2000 MG Injection intravenously 125.0 mg once 2024 active 11/13 epinephrine hydrochloride intramuscularl y 0.3 mg once 2024 active 11/13 hydrocortison e 100 MG Injection intravenously 100.0 mg once 2024 active 11/13 acetaminophen 325 MG Oral Capsule orally 650.0 mg once 2024 active 11/06 acetaminophen 325 MG Oral Capsule orally 650.0 mg once 2023 active 11/06 ondansetron hydrochloride intravenously 4.0 mg once 2023 active 11/06 hydrocortison e 100 MG Injection intravenously 100.0 mg once 2023 active 11/06 epinephrine hydrochloride intramuscularl y 0.3 mg once 2023 active 11/06 methylprednis olone 2000 MG Injection intravenously 125.0 mg once 2023 active 11/06 Oxygen inhaled 2.0 L Use as Directed Titrate to keep SPO2 >92% 2023 active 11/06 diphenhydrami ne hydrochloride 0.5 MG/ML Injectable Solution intravenously 50.0 mg once 2023 active 10/30 acetaminophen 325 MG Oral Capsule orally 650.0 mg once 2023 active 10/30 hydrocortison e 100 MG Injection intravenously 100.0 mg once 2023 active 10/30 diphenhydrami ne hydrochloride 0.5 MG/ML Injectable Solution intravenously 50.0 mg once 2023 active 10/30 ondansetron hydrochloride intravenously 4.0 mg once 2023 active 10/30 methylprednis olone 2000 MG Injection intravenously 125.0 mg once 2023 active 10/30 Oxygen inhaled 2.0 L Use as Directed Titrate to keep SPO2 >92% 2023 active 10/30 epinephrine hydrochloride intramuscularl y 0.3 mg once 2023 active 10/23 diphenhydrami ne hydrochloride 0.5 MG/ML Injectable Solution intravenously 50.0 mg once 2023 active 10/23 Oxygen inhaled 2.0 L Use as Directed Titrate to keep SPO2 >92% 2023 active 10/23 methylprednis olone 2000 MG Injection intravenously 125.0 mg once 2023 active 10/23 epinephrine hydrochloride intramuscularl y 0.3 mg once 2023 active 10/23 hydrocortison e 100 MG Injection intravenously 100.0 mg once 2023 active 10/23 acetaminophen 325 MG Oral Capsule orally 650.0 mg once 2023 active 10/23 ondansetron hydrochloride intravenously 4.0 mg once 2023 active 09/18 methylprednis olone 2000 MG Injection intravenously 125.0 mg once 2023 active 09/18 Oxygen inhaled 2.0 L Use as Directed Titrate to keep SPO2 >92% 2023 active 09/18 hydrocortison e 100 MG Injection intravenously 100.0 mg once 2023 active 09/18 diphenhydrami ne hydrochloride 0.5 MG/ML Injectable Solution intravenously 50.0 mg once 2023 active 09/18 epinephrine hydrochloride intramuscularl y 0.3 mg once 2023 active 09/18 acetaminophen 325 MG Oral Capsule orally 650.0 mg once 2023 active 09/18 ondansetron hydrochloride intravenously 4.0 mg once 2023 active 09/11 methylprednis olone 2000 MG Injection intravenously 125.0 mg once 2023 active 09/11 epinephrine hydrochloride intramuscularl y 0.3 mg once 2023 active 09/11 hydrocortison e 100 MG Injection intravenously 100.0 mg once 2023 active 09/11 ondansetron hydrochloride intravenously 4.0 mg once 2023 active 09/11 diphenhydrami ne hydrochloride 0.5 MG/ML Injectable Solution intravenously 50.0 mg once 2023 active 09/11 Oxygen inhaled 2.0 L Use as Directed Titrate to keep SPO2 >92% 2023 active 09/11 acetaminophen 325 MG Oral Capsule orally 650.0 mg once 2023 active 09/04 epinephrine hydrochloride intramuscularl y 0.3 mg once 2023 active 09/04 acetaminophen 325 MG Oral Capsule orally 650.0 mg once 2023 active 09/04 diphenhydrami ne hydrochloride 0.5 MG/ML Injectable Solution intravenously 50.0 mg once 2023 active 09/04 hydrocortison e 100 MG Injection intravenously 100.0 mg once 2023 active 09/04 ondansetron hydrochloride intravenously 4.0 mg once 2023 active 09/04 methylprednis olone 2000 MG Injection intravenously 125.0 mg once 2023 active 09/04 Oxygen inhaled 2.0 L Use as Directed Titrate to keep SPO2 >92% 2023 active 08/28 hydrocortison e 100 MG Injection intravenously 100.0 mg once 2023 active 08/28 diphenhydrami ne hydrochloride 0.5 MG/ML Injectable Solution intravenously 50.0 mg once 2023 active 08/28 ondansetron hydrochloride intravenously 4.0 mg once 2023 active 08/28 acetaminophen 325 MG Oral Capsule orally 650.0 mg once 2023 active 08/28 Oxygen inhaled 2.0 L Use as Directed Titrate to keep SPO2 >92% 2023 active 08/28 methylprednis olone 2000 MG Injection intravenously 125.0 mg once 2023 active 08/28 epinephrine hydrochloride intramuscularl y 0.3 mg once 2023 active 07/22 epinephrine hydrochloride intramuscularl y 0.3 mg once 2023 active 07/22 methylprednis olone 2000 MG Injection intravenously 125.0 mg once 2023 active 07/22 diphenhydrami ne hydrochloride 0.5 MG/ML Injectable Solution intravenously 50.0 mg once 2023 active 07/22 Oxygen inhaled 2.0 L Use as Directed Titrate to keep SPO2 >92% 2023 active 07/22 hydrocortison e 100 MG Injection intravenously 100.0 mg once 2023 active 07/22 acetaminophen 325 MG Oral Capsule orally 650.0 mg once 2023 active 07/22 ondansetron hydrochloride intravenously 4.0 mg once 2023 active 07/14 hydrocortison e 100 MG Injection intravenously 100.0 mg once 2023 active 07/14 epinephrine hydrochloride intramuscularl y 0.3 mg once 2023 active 07/14 diphenhydrami ne hydrochloride 0.5 MG/ML Injectable Solution intravenously 50.0 mg once 2023 active 07/14 acetaminophen 325 MG Oral Capsule orally 650.0 mg once 2023 active 07/14 methylprednis olone 2000 MG Injection intravenously 125.0 mg once 2023 active 07/14 ondansetron hydrochloride intravenously 4.0 mg once 2023 active 07/14 Oxygen inhaled 2.0 L Use as Directed Titrate to keep SPO2 >92% 2023 active 07/07 acetaminophen 325 MG Oral Capsule orally 650.0 mg once 2023 active 07/07 methylprednis olone 2000 MG Injection intravenously 125.0 mg once 2023 active 07/07 ondansetron hydrochloride intravenously 4.0 mg once 2023 active 07/07 diphenhydrami ne hydrochloride 0.5 MG/ML Injectable Solution intravenously 50.0 mg once 2023 active 07/07 epinephrine hydrochloride intramuscularl y 0.3 mg once 2023 active 07/07 hydrocortison e 100 MG Injection intravenously 100.0 mg once 2023 active 07/07 Oxygen inhaled 2.0 L Use as Directed Titrate to keep SPO2 >92% 2023 active 06/26 methylprednis olone 2000 MG Injection intravenously 125.0 mg once 2023 active 06/26 acetaminophen 325 MG Oral Capsule orally 650.0 mg once 2023 active 06/26 epinephrine hydrochloride intramuscularl y 0.3 mg once 2023 active 06/26 Oxygen inhaled 2.0 L Use as Directed Titrate to keep SPO2 >92% 2023 active 06/26 hydrocortison e 100 MG Injection intravenously 100.0 mg once 2023 active 06/26 diphenhydrami ne hydrochloride 0.5 MG/ML Injectable Solution intravenously 50.0 mg once 2023 active 06/26 ondansetron hydrochloride intravenously 4.0 mg once 2023 active 05/26 acetaminophen 325 MG Oral Capsule orally 650.0 mg once 2023 active 05/26 hydrocortison e 100 MG Injection intravenously 100.0 mg once 2023 active 05/26 ondansetron hydrochloride intravenously 4.0 mg once 2023 active 05/26 epinephrine hydrochloride intramuscularl y 0.3 mg once 2023 active 05/26 Oxygen inhaled 2.0 L Use as Directed Titrate to keep SPO2 >92% 2023 active 05/26 methylprednis olone 2000 MG Injection intravenously 125.0 mg once 2023 active 05/26 diphenhydrami ne hydrochloride 0.5 MG/ML Injectable Solution intravenously 50.0 mg once 2023 active Problems Diagnosis Status Date of Diagnosis Resolution Date Myasthenia gravis without ex acerbation (disorder) Active Social History Date Name Value Sex Male Visits Date Type Value 06/25/2025 Vyvgart Hytrulo 1008mg weekly x4 doses, q 50 days, BB, TARA 06/18/2025 Vyvgart Hytrulo 1008mg weekly x4 doses, q 50 days, BB, TARA 06/11/2025 Vyvgart Hytrulo 1008mg weekly x4 doses, q 50 days, BB, TARA 06/04/2025 Vyvgart Hytrulo 1008mg weekly x4 doses, q 50 days, BB, TARA Vital Signs Date Type Value 11/13/2024 Pain Scale 0.00 04/23/2025 Pain Scale 0.00
--- OUTSIDE RECORDS SUMMARY | 2025-05-25 10:54 | XMS_ITS | Clinical Summary ---
Author Organization [facility] Address [address] [place] [address] Care Team Providers Care Laborer Shipyard Name Role Phone Hugh Beltrán MD Primary Care Provider [phone] Allergies Active Allergy Reactions Criticality Noted Date [...] (08/15/2018): Added automatically from request for surgery [id number] Other termination clerk (current) drug therapy 8 Assessment & Plan [...] (08/13/2018): Added automatically from request for surgery [id number] Decreased hearing of both ears 07/03/2018 Assessment [...] become intrusive. 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 Furthermore, his hemoglobin has stabilized around 8.5. PLAN: - Gastroenterology consult, appreciate recommendations. - Regular diet - Discontinue IV fluids - A.m. CBC -IV Protonix 40 mg twice daily Assessment & Plan (08/21/2018 7:48 AM EDT): 08/21/2018 Favian has a history of gastric bypass surgery and was admitted to [facility] 08/12-08/15 in the setting of [...] gastric bypass surgery and was admitted to [facility] in the setting of melena [...] gastric bypass surgery and was admitted to [facility] in the setting of melena [...] multiple times per day. At the [facility] he was hypotensive in the 90s-100s over [...] to improve, he will follow-up as needed. 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 Procedure Name Priority Date/Time Associated Diagnosis Comments COMPREHENSIVE METABOLIC PANEL Routine 03/07/2021 12:28 PM EDT Myasthenia gravis COLONOSCOPY 11/20/2018 from Last 3 Months or Most Recently Relevant to Health Maintenance Results * Due to [place] [employer] law, this organization might not be sharing negative HIV tests. * (ABNORMAL) Comprehensive Metabolic Panel (03/07/2021 12:28 PM EDT) NA 141 135 - 145 mmol/L 03/07/2021 8:28 PM EDT [email or web address] K 4.1 3.5 - 5.3 mmol/L 03/07/2021 8:28 PM EDT [email or web address] Cl 109 97 - 110 mmol/L 03/07/2021 8:28 PM EDT [email or web address] CO2 24 24 - 32 mmol/L 03/07/2021 8:28 PM EDT [email or web address] Anion Gap 8 5 - 15 03/07/2021 8:28 PM EDT [email or web address] Glucose 97 70 - 99 mg/dL 03/07/2021 8:28 PM EDT [email or web address] Creatinine 1.01 0.60 - 1.30 mg/dL 03/07/2021 8:28 PM EDT [facility] eGFR Non- 74(L) >=90 mL/min/BS A 03/07/2021 8:28 PM EDT [facility] eGFR 86(L) >=90 mL/min/BS A 03/07/2021 8:28 PM EDT [facility] Comment: Units = mL/min/1.73 m2 Glomerular Filtration Rate (GFR) is estimated based on the CKD-EPI Creatinine Equation (2009). Stage Description GFR 1 Normal >=90 mL/min/BSA 2 Mildly decreased GFR 60-89 mL/min/BSA 3 Moderately decreased GFR 30-59 mL/min/BSA 4 Severely decreased GFR 15-29 mL/min/BSA 5 Kidney Failure <15 mL/min/BSA Calcium 9.3 8.7 - 10.7 mg/dL 03/07/2021 8:28 PM EDT [facility] Total Protein 6.6 6.0 - 8.0 g/dL 03/07/2021 8:28 PM EDT [facility] Albumin 4.3 3.5 - 4.8 g/dL 03/07/2021 8:28 PM EDT [facility] Bilirubin, Total 1.1 0.3 - 1.2 mg/dL 03/07/2021 8:28 PM EDT [facility] Alkaline Phosphatase 56 30 - 115 U/L 03/07/2021 8:28 PM EDT [facility] AST 27 10 - 40 U/L 03/07/2021 8:28 PM EDT [facility] ALT 13 10 - 40 U/L 03/07/2021 8:28 PM EDT [facility] BUN 18 7 - 23 mg/dL 03/07/2021 8:28 PM EDT [facility] Blood Structure of peripheral vein / Unknown Venipuncture / Unknown 03/07/2021 12:28 PM EDT 03/07/2021 12:28 PM EDT us Mary Salazar DO LAB BLOOD ORDERABLES Final Result [facility] [address] [place] [address], [place] * COLONOSCOPY (11/20/2018) Narrative Procedure Note Jacob Khan MD PhD - 11/20/2018 8:01 AM EST Gastroenterology Patient Name: Favian Hoover Procedure Date: 11/20/2018 8:01 AM Date of [...] by the physician,the nurse, the anesthesiologist, the soaker helper and the installation technician in the pre-procedure area in [...] and oxygen saturations were monitored continuously. The [id number] was introduced through the anus and advanced [...] was done by the physician, nurse and installation technician using the patient's name and [...] 0 Note Initiated On: 11/20/2018 8:01 AM us Jacob Khan MD PROVATION PROCEDURES Final R esult from Last 3 Months or Most Recently Relevant to Health Maintenance Insurance MEDICARE Advance Directives Documents on File Type Date Recorded Patient Computerized Table Cutter Expl anation Health Care Proxy 03/03/2011 12:00 AM 10/12 Health Care Proxy 06/08/2009 12:00 AM 05/12 * Full Code (Latest Code Status on File) Date Activated Date Inactivated Comments 08/19/2018 9:16 PM 08/23/2018 12:24 PM * Full Code Date Activated Date Inactivated Comments 08/12/2018 10:16 PM 08/15/2018 1:11 PM Care Teams Laborer Shipyard Relationship Specialty Start Date End Date Hugh Beltrán MD PCP - General 08/09/17
--- OUTSIDE RECORDS SUMMARY | 2025-05-25 10:54 | XMS_ITS | Encounter Summary ---
Author Organization [facility] Address [address] [place] [address] Care Team Providers Care Computer Aided Design Operator Name Role Phone Aamir Mauricio Primary Care Provider [phone] Encounter Details Date Type Department Care Team (Late st Contact Info) Description 05/20/2025 Orders Only [facility] [address] [place] [id number] Rebecca Grover MD [address] [place] [address] Myasthenia gravis (CMS/HCC) (Primary Dx) Social History Tobacco Use Types Packs/Day Years [...] this encounter Visit Diagnoses Diagnosis Myasthenia gravis (CMS/HCC)- Primary Myasthenia gravis without exacerbation documented in this encounter Care Teams Computer Aided Design Operator Relationship Specialty Start Date End Date Aamir Mauricio [address] [place] [address] PCP - General 01/01/24 documented as of this encounter
--- OUTSIDE RECORDS SUMMARY | 2025-05-25 10:54 | XMS_ITS | Clinical Summary ---
Author Organization [facility] Address [address] [facility] [place] [address] Care Team Providers Care Carver Hand Name Role Phone Aamir Mauricio MD Primary Care Provider [phone] Allergies Active Allergy Reactions Criticality Noted Date [...] 88 12/03/2023 8:35 AM EST Temperature 37 C (98.6 F) 09/18/2023 11:00 AM EST Respiratory Rate - [...] 08/21/2021 IMM SERIES: SARS-COV2 and COVID-19 vaccines ( - season) 2024 02/03/2021, 01/13/2021 Influenza Vaccine [...] age to complete this topic Insurance MEDICARE [facility] Care Teams Carver Hand Relationship Specialty [place] [id number] [address] PCP - General 11/26/23
[2025-06-17 12:50] VITALS: BMI 31.7
--- NOTE | 2025-06-29 11:48 | HO.ANESPROP2 ---
Documented by User: Josephine Zamora NP 06/30/25 11:18 HPI - Anesthesia Eval Consult details Narrative: 74 yr old male who resides in [place] for Left L5-S1 Decompression with Right L5 Foraminotomy Medically optimized by [place]CP in [place] 06/22/25 No known cardiac disorders or symptoms per PCP note 06/22/25 Myasthenia Gravis: follows with neuro in [place], stable on Hytrulo per neuro note from 09/2024, previously on Imuran; pt's neurologist sent a letter 06/25/25 stating believe he will be able to tolerate laminectomy and lower back surgery. I recommend you exercise precaution with certain anesthetics and neuromuscular blocking agents during general anesthesai, and local anesthesia is preferred . He notes that post operative pain can cause exacerbation of MG. [facility] Active Problems Active Problems: All Active Problems (Updated 06/17/25 @ 12:52 by Ita Elizalde RN) Lumbar radiculopathy (Acute) Past Medical History Medical History Glaucoma Skin cancer GI bleed Residence remote from hospital or other health care facility Neuropathy Arthritis Hypothyroid HTN (hypertension) Myasthenia gravis Surgical History Surgical History H/O colonoscopy History of repair of ruptured quadriceps tendon Hx of gastric bypass History of back surgery History of lumbar spinal fusion Social History Social History Are you a primary housekeeper child care to a significant other at home: No Do you presently have visiting nurse or other home services: No Patient Tobacco Use Status: Former Tobacco user Tobacco use type: Cigarette Years Smoked: 2 Use of substances other than those prescribed or required for medical reasons: No Have you been hit, kicked, punched, or otherwise hurt by someone within the past year? If so, by whom?: No Spiritual Healthcare Practices: no Pentecostalism Healthcare Practices: no Cultural Healthcare Practices: no Are you DNR?: No Advance Directives on File: No Poor oral hygiene: No Meds Allergies Allergy/AdvReac Type Severity Reaction Status Date / Time Penicillins Allergy Severe Hives Verified 07/06/25 09:04 Home Medications ?Medication ?Instructions ?Recorded ?Confirmed ?Last Taken ?Type alprazolam 0.5 mg tablet 0.5 mg PO DAILY PRN Anxiety 06/16/25 07/06/25 Unknown History enalapril maleate 10 mg tablet 10 mg PO QAM 06/16/25 07/06/25 Unknown History finasteride 5 mg tablet 5 mg PO QAM 06/16/25 07/06/25 07/06/25 History gabapentin 300 mg capsule 300 mg PO BID 06/16/25 07/06/25 Unknown History levothyroxine 88 mcg tablet 88 mcg PO QAM 06/16/25 07/06/25 07/06/25 History pantoprazole 40 mg tablet,delayed 40 mg PO QAM 06/16/25 07/06/25 07/06/25 History release pyridostigmine bromide 60 mg tablet 60 mg PO DAILY PRN muscle weakness 06/16/25 07/06/25 Unknown History latanoprost 0.005 % eye drops 1 drp ophthalmic (eye) BEDTIME 06/17/25 07/06/25 Unknown History tamsulosin 0.4 mg capsule 0.8 mg PO QAM 06/17/25 07/06/25 07/06/25 History Exam Height,Weight and Vital Signs: Height 5 ft 9 in Weight 97.522 kg Pertinent Lab Results Pertinent Lab Results: Labs from 06/15/25 done in [place]: CBC WBC: 7.1 RBC: 4.5 Hgb: 12.9 Hct 40.2 Plat 264 BMP Glucose: 125 BUN 14.9 Creat: 0.98 Potassium: 4.4 Sodium: 141 Narrative Narrative: EKG 06/22/25 at PCP office: NSR, no acute ST-T wave changes; rate 86 Documented by User: Kishor Jones MD 07/06/25 13:30 [facility] Past Medical History Medical History Glaucoma Skin cancer GI bleed Residence remote from hospital or other health care facility Neuropathy Arthritis Hypothyroid HTN (hypertension) Myasthenia gravis Family History Family history of problems with anesthesia: No Surgical History Surgical History H/O colonoscopy History of repair of ruptured quadriceps tendon Hx of gastric bypass History of back surgery History of lumbar spinal fusion History of Problems with Anesthesia: No Social History Social History Are you a primary housekeeper child care to a significant other at home: No Do you presently have visiting nurse or other home services: No Patient Tobacco Use Status: Former Tobacco user Tobacco use type: Cigarette Years Smoked: 2 Use of substances other than those prescribed or required for medical reasons: No Have you been hit, kicked, punched, or otherwise hurt by someone within the past year? If so, by whom?: No Spiritual Healthcare Practices: no Pentecostalism Healthcare Practices: no Cultural Healthcare Practices: no Are you DNR?: No Advance Directives on File: No Poor oral hygiene: No Meds Allergies Allergy/AdvReac Type Severity Reaction Status Date / Time Penicillins Allergy Severe Hives Verified 07/06/25 09:04 Home Medications ?Medication ?Instructions ?Recorded ?Confirmed ?Last Taken ?Type alprazolam 0.5 mg tablet 0.5 mg PO DAILY PRN Anxiety 06/16/25 07/06/25 Unknown History enalapril maleate 10 mg tablet 10 mg PO QAM 06/16/25 07/06/25 Unknown History finasteride 5 mg tablet 5 mg PO QAM 06/16/25 07/06/25 07/06/25 History gabapentin 300 mg capsule 300 mg PO BID 06/16/25 07/06/25 Unknown History levothyroxine 88 mcg tablet 88 mcg PO QAM 06/16/25 07/06/25 07/06/25 History pantoprazole 40 mg tablet,delayed 40 mg PO QAM 06/16/25 07/06/25 07/06/25 History release pyridostigmine bromide 60 mg tablet 60 mg PO DAILY PRN muscle weakness 06/16/25 07/06/25 Unknown History latanoprost 0.005 % eye drops 1 drp ophthalmic (eye) BEDTIME 06/17/25 07/06/25 Unknown History tamsulosin 0.4 mg capsule 0.8 mg PO QAM 06/17/25 07/06/25 07/06/25 History Exam Airway Mallampati Class: II TM Dist: >3cm Neck ROM: Full Denture: Upper and Lower Assessment and Plan Assessment Anesthesia Assessment: Anesthesia Plan Discussed and Chart Reviewed Final Anesthetic Review Family History of Problems with Anesthesia: No History of Problems with Anesthesia: No NPO: Yes ASA Class: III Final Preanesthetic Review: No Changes in Pt Med Stat, Meds/Allgs Chart Reviewed, Consent Obtained/Reviewed and Anes Risks/Benef Reviewed Patient Risk: Intermediate Procedure Risk: Low Anesthetic Plan Anesthetic Plan: GA Disposition: Standard PACU
--- NOTE | ~2025-07-06 | FL_ITS ---
EXAMINATION: [place] GUIDANCE ONLY HISTORY: L4-5, L5-S1 Laminectomy COMPARISON: Correlation is made with plain films of the lumbar spine dated 02/26/2025. TECHNIQUE: Fluoroscopy time: 5.2 seconds. Cumulative Dose: 5.5019 mGy. DAP: 1.6396 mGym2 Images: 1. FINDINGS: A single fluoroscopic spot film of lumbar spine in the lateral projection demonstrates a probe directed toward the L5 vertebral body. FL/FL guidance in OR IMPRESSION: Fluoroscopy during procedure. Please see procedure report for additional information. Electronically signed by: River Haji MD 07/06/2025 02:44 PM EDT
[2025-07-06 09:06] VITALS: BP 138/79; PULSE 91; RESP 14; TEMP 36.6; O2SAT 99; BMI 31.6
--- NOTE | 2025-07-06 12:07 | MHC.SHP ---
Pre-Procedural Eval Section A - 24 Hr Update-Section A only Date of Service: 07/06/25 The patient is an INPATIENT: No Changes since office visit: No Cold of Flu in the past 2 weeks, No New Medical Problems, No Changes in Medication and No Patient answered all questions The patient has been examined within 24 hours of the surgical procedure. The History & Physical has been completed within 30 days and I have reviewed it.: No Section B - Complete if H&P > 30 days Chief Complaint: Radiculopathy, lumbar region Allergies: Allergies Allergy/AdvReac Type Severity Reaction Status Date / Time Penicillins Allergy Severe Hives Verified 07/06/25 09:04 Review of Systems Sugical H&P ROS: Negative: Constitution, Cardiovascular, Respiratory, Neurological, Psychiatric, Hem-Onc, Allergic/Immunologic, Gastrointestinal, Genitourinary, Musculoskeletal, Integumentary, Endocrine and Eyes/Ears/Nose/Throat Exam Surgical H&P Exam: Normal: HEENT, Normal: Heart, Normal: Lungs, Normal: Extremities, Normal: Abdomen, Normal: Skin and Normal: Neurological (awake, alert,oriented x 3 ) Plan Diagnosis/Plan: Unchanged Left L4-5 decompression, left L4 foraminotomy, left L5 foraminotomy Time Spent With Patient Time: Total time managing care of this patient today _5___ minutes.
--- NOTE | 2025-07-06 12:10 | P.DS_ITS ---
DS: Providers Provider Date of Service: 07/06/25 Date of discharge: 07/06/25 Primary care physician: Nonstaff Physician Admitting clinician: Lazaro Ku DS: Diagnosis Discharge Diagnosis (1) Lumbar radiculopathy: Status: Acute DS: Summary Time Attestation Discharge Coordination Time (in mins): 5 Quality: Safe Use of Opioids Does Pt have an Active Cancer Diagnosis on the Problem List?: No Quality: Stroke Does the patient have a stroke diagnosis?: No Physical Exam Vital Signs: Vital Signs: Last Vital Signs Temp 97.8 F 07/06/25 09:06 Pulse 91 07/06/25 09:06 Resp 14 07/06/25 09:06 BP 138/79 07/06/25 09:06 Pulse Ox 99 07/06/25 09:06 O2 Del Method Room Air 07/06/25 09:06 BMI result Body Mass Index 31.6 Discharge Plan Discharge Patient Disposition: Home, Self-Care Referrals: Physician,Nonstaff [Primary Care Provider, Medical] - 1 Week Discharge Medications: New oxycodone 5 mg tablet 5 mg PO Q4H PRN (Reason: pain) Qty: 20 0RF Rx Instructions: Partial Fill upon patient request. docusate sodium [Colace] 100 mg capsule 100 mg PO BID Qty: 20 0RF Continued enalapril maleate 10 mg tablet 10 mg PO QAM levothyroxine 88 mcg tablet 88 mcg PO QAM alprazolam 0.5 mg tablet 0.5 mg PO DAILY PRN (Reason: Anxiety) pantoprazole 40 mg tablet,delayed release (DR/EC) 40 mg PO QAM pyridostigmine bromide 60 mg tablet 60 mg PO DAILY PRN (Reason: muscle weakness) gabapentin 300 mg capsule 300 mg PO BID finasteride 5 mg tablet 5 mg PO QAM latanoprost 0.005 % drops 1 drp ophthalmic (eye) BEDTIME tamsulosin 0.4 mg capsule 0.8 mg PO QAM Discharge Orders: Discharge Order (Routine); Ordered 07/06/25 Ordered By: Andrew Beck Diet: Advance to usual diet Activity on Discharge: As tolerated Activity Restrictions/Additional Instructions: After your spinal surgery we ask you to observe the following restrictions/guidelines: Activity: It is normal to feel some discomfort as you increase your activity, but that will improve with time. We ask you avoid heavy lifting or acitivities that cause pain. As a general rule, 8lbs is a safe limit for lifting right after surgery. Walk as much as you feel comfortable but not to exhaustion. You will feel extra tired the first few days after surgery. Stay well hydrated. It is OK to walk up and down stairs You may return to driving when you are off narcotics (such as vicodin, oxycodone, dilaudid, etc), and you are back to normal functional capacity. If you have any concerns please check with office before driving. Return to work is specific to each patient and each surgery, so please speak with your doctor/PA at first follow up. Please bring paperwork such as FMLA at that time if you need it filled out. Medications: For optimum pain control, it is best to start with a combination of 500 mg of Tylenol every 4 hours with 600 mg of Motrin every 8 hours, and use narcotics as needed in between for breakthrough pain. We will give you a short supply of narcotics after surgery (usually one weeks worth). If you need more please call the office but do not use more than prescribed. You will need to give our office 48 hours notice if you need narcotics refilled and we do not fill narcotics on weekends or evenings. If you are on a narcotic, it is a good idea to take a stool softener such as colace or senna to avoid constipation If you take blood thinner such as aspirin, Plavix, Coumadin, Effient, Eliquis etc for conditions such as Afib, DVT, Pulmonary embolus, coronary disease, stents etc please speak with your surgeon about specific details as to when you can resume these medications. You can resume NSAIDs on post op day 1 (eg: Motrin, Naproxen, etc). Follow up: Please call the office, , after surgery to arrange a 3 week follow up for wound check. Wound Care: You may remove your dressing on the first day after surgery. ?You may ?leave open to air. Please do not remove the steri strips underneath. they will fall off on their own in one week. IT IS NORMAL FOR THE WOUND TO OOZE OR BE BLOODY FOR A FEW DAYS AFTER SURGERY. ?IF THIS HAPPENS JUST PLACE NEW DRESSING OVER IT TO AVOID STAINING CLOTHES. You may shower on post op day # 1 We ask that you do not let the water soak the wound. If it does get wet, just towel dry lightly. Please do not scrub your incision or place any type of chemical/ointment on the wound. No tub baths, pools or jacuzzis for one month. If you have any leaking or redness from your wound, or fevers, please call office Print Language: Luxembourger
--- NOTE | 2025-07-06 14:32 | P.OP_ITS ---
Operative Note Operative Note Date of Service: 07/06/25 Narrative: Preoperative Diagnosis: L4-5 spinal stenosis/lateral recess stenosis/neural foraminal stenosis Operation: Left L4-5 Laminotomy, Partial facetectomy and left L4 and L5 foraminotomy with use of microscope Consent Informed Consent was obtained for this operation. I have explained the nature, purpose and benefits of the operation. I have discussed the risks and benefit of the operation including possible complications or adverse events with patient/family. Alternative(s) were discussed with the patient with their relative benefits and risks as well as the consequences of not accepting the operation were included in obtaining consent. Surgeon: JENNIFER GOMEZ MD, PHD Procedure Assisted By: Andrew Yo Description of Procedure This patient is suffering from intermittent severe numbness of his left leg in an L4 and L5 distribution. The symptoms are progressive. The patient was offered a decompression with the knowledge that in the absence of pain the symptoms may not improve. The MRI shows severe L4-5 central spinal stenosis and L4-L5 foraminal stenosis. The procedure complications were explained. The patient was consented. The patient was brought to the operating room and endotracheally intubated. The patient was turned in prone position on the Lorne frame. Prep and drape was done followed by timeout. The Physician sociology research assistant provided access. A mid lumbar incision was made followed by release of the paravertebral muscle on the left side to expose the L4-5 lamina and facet joints. An intraoperative x-ray was obtained to confirm the correct level. The microscope was brought in. I took over the procedure. The high-speed drill was used to do a L4-5 laminotomy until flavum ligament was reached. A #2 Kerrison was used to expand the laminotomy near flush to the pedicles and to include a partial facetectomy. The flavum ligament was opened and resected with a #3 Kerrison to decompress the underlying thecal sac. This was very hard as the flavum ligament was severely hypertrophied and consisted of several thick layers. The flavum ligament was removed to decompress the lateral recess and the exiting L5 nerve root, which was severely compressed in the lateral recess. A medial facetectomy was required to decompress the L5 nerve root. The L4 foramen was inspected and a long nerve hook could be passed into the foramina as a sign of adequate decompression. The L5 nerve root was followed down to the L5 foramen. Intra foraminal fat was seen and a long nerve hook could be easily passed along the medial side of the L5 pedicle and into the foramen. The microscope was removed. Hemostasis was done. The physician sociology research assistant close the Incision in 2 layers. Steri-Strips were used to approximate incision. An OpSite with Tegaderm was used to cover the incision. All sponge needle counts were correct. Patient was extubated and transported in stable is to recovery room. Anesthesia: General Estimated Blood Loss (ml): 30 Complications: None Duration of Surgery: Under 60 Minutes Postoperative Plan: Discharge to home
[2025-07-06 15:01] VITALS: BP 142/65; PULSE 69; RESP 16; TEMP 36.4; O2SAT 100
[2025-07-06 15:06] VITALS: BP 106/61; PULSE 63; RESP 20; O2SAT 100
[2025-07-06 15:11] VITALS: BP 104/56; PULSE 65; RESP 14; O2SAT 100
[2025-07-06 15:16] VITALS: BP 116/65; PULSE 70; RESP 16; O2SAT 100
[2025-07-06 15:31] VITALS: BP 127/70; PULSE 65; RESP 3; TEMP 36.1; O2SAT 100
== END 2025-07-06 16:08 | disposition home or self-care (01) ==
PROVIDERS: Visit Provider Neurological Surgery
PROC: (CPT 63047; principal; 2025-07-06 11:40)
DX: M48.062 Spinal stenosis, lumbar region with neurogenic claudication (principal); M54.16 Radiculopathy, lumbar region; M17.11 Unilateral primary osteoarthritis, right knee; G70.00 Myasthenia gravis without (acute) exacerbation; I10 Essential (primary) hypertension; R91.1 Solitary pulmonary nodule; E78.5 Hyperlipidemia, unspecified; E03.9 Hypothyroidism, unspecified; Z79.899 Other long term (current) drug therapy; Z88.0 Allergy status to penicillin; Z98.84 Bariatric surgery status; Z98.890 Other specified postprocedural states
CPT/HCPCS: 63047; 99499; J0131; J1100; J1171; J2003; J2250; J2405; J2704; J3010; J3374

== ENCOUNTER → 2025-07-06 08:45 | Outpatient (BNV) | payer MEDICARE, SELFPAY | PROVIDERS: Visit Provider Neurological Surgery | DX: M48.062 Spinal stenosis, lumbar region with neurogenic claudication (principal) | CPT/HCPCS: 63047 ==